=== PATIENT | male | born 1965 | race African-American/Black ===

== ENCOUNTER 2024-02-09 12:41 | Emergency (ER) | payer OTHER, SELFPAY ==
--- NOTE | ~2024-02-09 | CT_ITS ---
CT HEAD WITHOUT IV CONTRAST CLINICAL INFORMATION: head injury, pain COMPARISON: No prior CT scan available for comparison. TECHNIQUE: Department standard protocol. This CT examination was performed using dose optimization techniques as appropriate, variously including the following: *Automated exposure control *Adjustment of mA and/or kV according to patient size (this includes techniques or standardized protocols for targeted exams where dose is matched to indication/reason for exam; i.e. extremities or head) *Use of iterative reconstruction technique DLP: 777 mGy-cm FINDINGS: CEREBRAL HEMISPHERES: There is no evidence of intra-axial or extra-axial mass or acute infarct. BRAIN PARENCHYMA: There is moderate size left frontoparietal subdural hematoma. Measure about 1 cm thick and a span along 8 cm anterior posteriorly and 8 cm craniocaudally. SUBDURAL SPACE: No bleed. BASAL GANGLIA AND PINEAL GLAND: Unremarkable VENTRICLES: Symmetric and normal in size. CEREBELLUM AND BRAINSTEM: No space-occupying mass, hemorrhage or acute infarct. CEREBELLOPONTINE ANGLES: No lesion found. ORBITS: No intraorbital mass. VESSELS: Unremarkable SKULL BASE: Unremarkable INCLUDED SINUSES AT SKULL BASE: Clear SKULL AND SKIN: No fracture or bone lesion found. CT/CT head/brain wo IV con IMPRESSION: Moderate size left intracranial frontoparietal SUBDURAL HEMATOMA. Measure about 1 cm thick and a span along 8 cm anterior posteriorly and 8 cm craniocaudally. (Referring physician staff is being called, by physician staff assistance, to be alerted of the above critical findings and recommendations.) Behzad Calle 02/09/2024 1:32 PM LEAD ENGINEER Electronically signed by: Agapito James MD 02/09/2024 02:33 PM [facility]
--- NOTE | ~2024-02-09 | CT_ITS ---
EXAMINATION: CT CERVICAL SPINE CLINICAL INFORMATION: head injury, pain COMPARISON: No prior CT available, TECHNIQUE: Computed axial sagittal and coronal images acquired using department's standard protocol. This CT examination was performed using dose optimization techniques as appropriate, variously including the following: *Automated exposure control *Adjustment of mA and/or kV according to patient size (this includes techniques or standardized protocols for targeted exams where dose is matched to indication/reason for exam; i.e. extremities or head) *Use of iterative reconstruction technique CONTRAST: None DLP: 1364 mGy-cm FINDINGS: SKULL BASE: Visualized structures at skull base are normal, Included facial sinuses are clear, CERVICAL VERTEBRAE: Seven cervical vertebrae identified maintaining proper height and alignment, ATLANTOAXIAL AND ATLANTOOCCIPITAL ARTICULATION: Asymmetric space around the odontoid process in correlation with the lateral mass of C1, most likely due to rotation of the head POSTERIOR SPINES and lateral transverse processes: All are intact. DISCS: Narrowing of intervertebral disc spaces and developed small osteophyte from the edges of endplates encroaching on the neural foramen bilaterally at multiple levels. PREVERTEBRAL SOFT TISSUE: Within normal limits, no evidence of prevertebral soft tissue swelling. Visualized portion of the trachea larynx are normal. LUNG APICES: Included lung apices are clear bilaterally. Paravertebral soft tissue including LYMPH NODE AND SALIVARY GLANDS THYROID: Paravertebral soft tissue including cervical lymph nodes are within normal limits. Included paranasal and salivary unremarkable. CT/CT cervical spine wo IV con IMPRESSION: 1. No CT evidence of cervical spine fracture. 2. Narrowing of intervertebral disc spaces and developed small osteophyte from the edges of endplates encroaching on the neural foramen bilaterally at multiple levels. 3. Asymmetric space around the odontoid process in correlation with the lateral mass of C1, most likely due to rotation of the head. If patient symptoms persist may consider correlation with follow-up MRI or repeat scan with head properly positioned forward aligned with the remaining of the cervical spine. Electronically signed by: Agapito James MD 02/09/2024 02:42 PM [facility]
[2024-02-09 12:56] VITALS: BP 115/67; PULSE 91; RESP 18; TEMP 36.6; O2SAT 100; BMI 24.2
[2024-02-09 13:02] VITALS: BP 115/67; PULSE 91; RESP 18; TEMP 36.6; O2SAT 100
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
[2024-02-09 16:49] VITALS: BP 103/65; PULSE 72; RESP 16; TEMP 36.8; O2SAT 98
--- NOTE | 2024-02-09 16:52 | PC.NURSE ---
Unable to obtain blood labs as Pt is a difficulty stick. Multiple attempts made to retrieve blood specs with no success. Dr. Garcia aware and advised to hold pending consult with [facility].
--- NOTE | 2024-02-09 16:58 | PC.NURSE ---
Per Dr. Garcia, likely transport to [facility] [place] [place]. Will request U/S guided IV for access and blood labs.
--- NOTE | 2024-02-09 17:07 | PC.NURSE ---
Per Dr. Garcia, Pt will be transported [place] [facility] [place]intervention. Orders given to this RN an forest fire warden Steven to hold on blood work and IV access at this time--orders read back for accuracy. Pt will be transported by BLS Awaiting room assignment at this time; will call for RN report once destination has been provided.
--- NOTE | 2024-02-09 18:14 | PC.NURSE ---
Call placed to [facility] @ [phone] for transfer report. Spoke with OZZIE Avalos; RN to RN report completed. [facility] given opportunity for questions and all questions answered to satisfaction. [facility] arrives to transport Pt. Report given to [facility] staff and all questions answered to satisfaction. Care of Pt relinquished to [facility] staff. Pt has left the ED.
[2024-02-09 18:18] VITALS: BP 103/65; PULSE 72; RESP 16; TEMP 36.8; O2SAT 98
--- OUTSIDE RECORDS SUMMARY | 2024-02-12 12:07 | XMS_ITS | Continuity of Care Document ---
Author Organization [facility] Address [address] [facility] [address] [place] [address] Phone Care Team Providers Care Digital Measurement Advisor Name Role Phone Roderick Blake MD Unavailable [...] Copied on Encounter [facility], [address], [place], [id number], [phone] [facility] No Information 4 Hayden Vaughn. [address] [facility], [address], [place], [place], [id number] , [place]. tel: [phone] [facility], [address] [place], [place] [address], [place], [place], [id number], [place] tel:[phone] [facility] Compression of VeinStricture of ArteryEnd stage renal diseaseOther complications due to renal dialysis device, implant, and graftTo Be Coded 4 Hayden Vaughn. [address] [facility], [address], [place], [place], [id number] , . tel:[phone] Referring Provider: Michelle Augustin, [address] [facility], [facility] [place], [address]. tel:[phone] [facility], [address] [facility] [address], [place], [place], [id number], [place] tel:[phone] [facility] No Information 4 Hayden Vaughn. [address] [facility], [facility] [address], [place], [place], [id number] , [place]. tel:[phone] Family History Family Member Type Diagnosis Age At Onset No Information Payers Payer name Insurance type Covered democrat ID Authoriza tion(s) No Information Social History [...]
--- OUTSIDE RECORDS SUMMARY | 2024-02-12 12:10 | XMS_ITS | Continuity of Care Document ---
Author Organization [facility] Address [address] [facility] [address] [place] [address] Phone Care Team Providers Care Automobile Damage Appraiser Name Role Phone Roderick Blake MD Unavailable [...] Provider Providers Copied on Encounter [facility], [address] [facility] [address], [place], [id number], [phone] [facility] No Information 4 Hayden Vaughn. [address] [facility], [address], [place], [place], [id number] , [place]. tel: [phone] [facility], [address] [place], [place] [address], [place], [place], [id number], [place] tel:[phone] [facility] Compression of VeinStricture of ArteryEnd stage renal diseaseOther complications due to renal dialysis device, implant, and graftTo Be Coded 4 Hayden Vaughn. [address] [facility], [address], [place], [place], [id number] , . tel:[phone] Referring Provider: Michelle Augustin, [address] [facility], [facility] [place], [address]. tel:[phone] [facility], [address] [facility] [address], [place], [place], [id number], [place] tel:[phone] [facility] No Information 4 Hayden Vaughn. [address] [facility], [facility] [address], [place], [place], [id number] , [place]. tel:[phone] Family History Family Member Type Diagnosis Age At Onset No Information Payers Payer name Insurance type Covered green party ID Authoriza tion(s) No Information Social History [...]
== END 2024-02-09 18:19 | disposition short-term general hospital (02) ==
PROVIDERS: Emergency Provider Emergency Medicine
DX: S06.5XAA Traumatic subdural hemorrhage with loss of consciousness status unknown, initial encounter (principal); R41.82 Altered mental status, unspecified; M54.2 Cervicalgia; R51.9 Headache, unspecified; F10.229 Alcohol dependence with intoxication, unspecified; Y90.8 Blood alcohol level of 240 mg/100 ml or more; R27.0 Ataxia, unspecified; X58.XXXA Exposure to other specified factors, initial encounter; Y93.9 Activity, unspecified; Y92.9 Unspecified place or not applicable; Y99.8 Other external cause status
CPT/HCPCS: 70450; 72125; 99285

== ENCOUNTER 2024-03-11 20:30 | Emergency (ER) | payer OTHER, SELFPAY ==
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
[2024-03-11 20:52] VITALS: BP 127/74; BP 133/86; PULSE 80; PULSE 83; RESP 20; TEMP 36.6; O2SAT 93; O2SAT 98; BMI 24.3
[2024-03-11 21:09] LABS: Basophils Percent Auto 0.4 % (0-2); Eosinophils Percent Auto 0.4 % (0-4); Hematocrit 34.2 % (42.0-52.0); Hemoglobin 11.7 g/dl (14.0-18.0); Lymphocytes Absolute Auto 3.2 X10*3/uL (1.2-4.9); Lymphocytes Percent Auto 60.8 % (20-40); MANUAL DIFF FLAG SCAN; Mean Corpuscular HGB Conc 34.2 g/dl (31.0-36.0); Mean Corpuscular Hemoglobin 30.3 pg (27.0-33.0); Mean Corpuscular Volume 88.6 fL (80.0-98.0); Mean Platelet Volume 10.4 fL (9.4-12.4); Monocytes Absolute Auto 0.8 X10*3/uL (0.1-1.2); Monocytes Percent Auto 15.6 % (2-11); Neutrophils Absolute Auto 1.2 x10*3/uL (2.0-8.3); Neutrophils Percent Auto 22.8 % (45-73); Platelet Count 151 X10*3/uL (160-400); Red Blood Count 3.86 X10*6/uL (4.60-5.80); Red Cell Distribution Width 13.8 % (11.0-16.0); SCAN SMEAR FLAG 1; White Blood Count 5.3 X10*3/uL (4.8-10.8)
[2024-03-11 21:35] LABS: SLIDE REVIEW VERIFIED
[2024-03-11 22:01] LABS: Alanine Aminotransferase 49 U/L (0-40); Albumin Level 3.4 g/dL (3.5-5.0); Alkaline Phosphatase 50 U/L (39-117); Anion Gap 15 (12-20); Aspartate Amino Transferase 74 U/L (5-37); Bilirubin Total 0.3 mg/dL (0.0-1.0); Blood Urea Nitrogen 9 mg/dL (9-16); Calcium 8.2 mg/dL (8.4-10.2); Carbon Dioxide 26 mmol/L (22-29); Chloride 111 mmol/L (96-108); Creatinine Clr Calc Pharmacy 88.5; Estimated Glomerular Filt Rate > 60; Glucose Random 114 mg/dL (60-115); Potassium 3.4 mmol/L (3.3-5.1); Sodium 149 mmol/L (135-145); Total Protein 6.7 g/dL (6.5-8.0)
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
[2024-03-12 00:21] LABS: Ethanol 371 mg/dL; Lipase 11 U/L (8-78); Magnesium 1.6 mg/dL (1.6-2.6)
[2024-03-12 00:40] LABS: INTERNATIONAL NORM RATIO 0.9 (0.9-1.1); Prothrombin Time 10.8 SEC (10.9-12.4)
[2024-03-12 01:34] VITALS: BP 111/68; PULSE 70; RESP 14; TEMP 37; O2SAT 96
[2024-03-12 04:27] VITALS: BP 128/72; PULSE 69; RESP 14; TEMP 37.1; O2SAT 96
== END 2024-03-12 04:33 | disposition short-term general hospital (02) ==
PROVIDERS: Nurse Practitioner Family; Emergency Provider Emergency Medicine
DX: S06.5XAA Traumatic subdural hemorrhage with loss of consciousness status unknown, initial encounter (principal); M54.2 Cervicalgia; R10.2 Pelvic and perineal pain; R51.9 Headache, unspecified; R07.89 Other chest pain; Y04.2XXA Assault by strike against or bumped into by another person, initial encounter; Y93.89 Activity, other specified; Y92.89 Other specified places as the place of occurrence of the external cause; Y99.8 Other external cause status; Z51.81 Encounter for therapeutic drug level monitoring; Z79.899 Other long term (current) drug therapy
CPT/HCPCS: 36415; 70450; 71250; 72125; 74176; 80053; 80307; 83690; 83735; 84484; 85025; 85610; 93005; 99285

== ENCOUNTER → 2024-03-11 23:54 | Outpatient (BNV) | payer OTHER, SELFPAY | PROVIDERS: Emergency Provider Emergency Medicine; Visit Provider Internal Medicine | DX: R07.9 Chest pain, unspecified (principal); R94.31 Abnormal electrocardiogram [ECG] [EKG] | CPT/HCPCS: 93010 ==

== ENCOUNTER → 2024-03-12 | Outpatient (BNV) | payer OTHER, SELFPAY | PROVIDERS: Emergency Provider Emergency Medicine; Visit Provider Radiology Diagnostic Radiology | DX: N13.39 Other hydronephrosis (principal); J98.11 Atelectasis; S19.9XXA Unspecified injury of neck, initial encounter; S06.30AA Unspecified focal traumatic brain injury with loss of consciousness status unknown, initial encounter | CPT/HCPCS: 70450; 71250; 72125; 74176 ==

== ENCOUNTER 2024-05-09 08:42 | Inpatient (IN) | payer OTHER, SELFPAY ==
[2024-05-09] VITALS (10 sets, daily range): BP systolic 143–181; BP diastolic 58–105; PULSE 69–155; RESP 16–24; TEMP 36.8–37.3; O2SAT 94–99; BMI 22.4; BMI 23.2
--- NOTE | ~2024-05-09 | CT_ITS ---
CLINICAL HISTORY: ams, seizure CT head without contrast Comparison: CT/SR - CT HEAD/BRAIN WO IV CON - 03/12/24 00:01 EST Findings: No intra-axial mass, midline shift, hydrocephalus, or acute hemorrhage. Small volume subdural hygroma within the right frontal region. Small mixed attenuation left-sided subdural hemorrhage, decreasing from prior. No significant atrophy-like change or white matter disease. There is no sinus or mastoid fluid. The orbits are within normal limits. No skull fracture. IMPRESSION: Small mixed attenuation left-sided subdural hematoma, decreased from prior. Small right-sided subdural hygroma, similar to prior. No new or increasing hemorrhage. This document has been electronically signed by: Douglas Cazares MD on 05/09/2024 09:17:55
--- NOTE | ~2024-05-09 | US_ITS ---
CLINICAL HISTORY: RUQ elevated bili ams US abdomen limited Comparison: CT/SR - CT ABDOMEN PELVIS WO IV CON - 03/12/24 00:05 EST Findings: The visualized pancreas is normal. The aorta and inferior vena cava are normal caliber. The liver is mildly enlarged at 17 cm and increased in echotexture. There is no intrahepatic bile duct dilatation. The common duct is 6 mm in diameter. The gallbladder demonstrates gallstones There is no sonographic Wood sign. The main portal vein is antegrade. The right kidney is 12.9 cm in length. No ascites. IMPRESSION: Hepatic steatosis. Cholelithiasis without evidence of cholecystitis. This document has been electronically signed by: Douglas Cazares MD on 05/09/2024 11:02:31
--- NOTE | 2024-05-09 08:48 | ED_ITS ---
HPI - General Adult General Chief complaint: Altered Mental Status Stated complaint: SEIZURE,WITHDRAWAL FROM ETOH Time Seen by Provider: 05/09/24 08:44 Source: patient and family Mode of arrival: ambulatory Limitations: altered mental status History of Present Illness ED Provider: ANA Bolton HPI narrative: 58-year-old male history of IVDA, alcohol dependence, subdural hematoma presenting from home with 7 minute long seizure and AMS. Patient unable to provide me a story but per EMS patient had a witnessed seizure tonic clonic that lasted 7 minutes. Last drink reported by family was last night around noon. Patient drinks daily. No reported trauma. Limited ROS and history due to paitients mental status. Related Data Allergies Allergy/AdvReac Type Severity Reaction Status Date / Time Unable to Assess Allergy Verified 05/09/24 09:12 Review of Systems 2 Review of Systems: Yes all other systems are reviewed and are negative [facility] Past Medical History Attestation statement: The following information was validated with the patient. Source: old records reviewed and nursing notes reviewed Social History Social History Unable to assess alcohol history related to: Unknown Alcohol intake: current Alcohol intake frequency: 3 or more drinks per day Alcohol type: hard liquor Smoked in Last 30 Days: Yes Use of substances other than those prescribed or required for medical reasons: Yes Physical Exam ED Vital Signs: Vital Signs - 24 hr 05/09/24 09:10 05/09/24 09:21 05/09/24 10:00 Temperature 98.6 F 98.7 F Pulse Rate 155 H 86 79 Respiratory Rate 18 18 18 Blood Pressure 161/105 H 143/86 H 147/86 H Pulse Oximetry 97 98 96 Oxygen Delivery Method Room Air Room Air Room Air BMI result Body Mass Index 22.4 Vital signs stable Appearance: Alert.? Oriented X1 to person.? No acute distress.? Head: Normocephalic, atraumatic, no step-offs or deformities Eyes: Pupils equal, round and reactive to light.? Neck: Normal inspection.? Neck supple.? CVS: Normal heart rate and rhythm.? Pulses normal.? Respiratory: No respiratory distress.? Breath sounds normal.? Abdomen: Soft and nontender.? Skin: Skin warm and dry.? Normal skin color.? Normal skin turgor.? Extremities: No lower extremity edema.? No calf ttp. 5/5 strength to bilateral upper and lower extremities Neuro: Oriented X 1 to person.? No motor deficit.? No sensory deficit. CN 2-12 intact Course Reevaluation(s) Reevaluation #1: Patient's chemistry resulted and showed a potassium of 3.1, will give IV potassium at this time as patient is altered will avoid p.o.. Patient's lactic acid 6.9 this is likely a type B lactic acidosis secondary to seizure unlikely from infection. Magnesium 1.1 IV Mag also ordered. Total bilirubin elevated at 1.5, this is deviating from his baseline, will order a right upper quadrant ultrasound. His transaminases are elevated in the 2-1 fashion likely secondary to chronic alcohol abuse. CPK also elevated 568 likely secondary to seizure. Patient's heart rate improved after Ativan and fluids. Troponins negative EKGs nonischemic however showing sinus tach. CBC pendin will call lab to inquire on status Time: 09:35 Reevaluation #2: CT head with mixed attenuation left-sided subdural hematoma decreased from prior steady. Small right-sided subdural hygroma similar to prior. No increasing or new hemorrhage. Time: 10:03 Reevaluation #3: CBC w/ no acute findings. Baseline anemia noted. Plan hospital admission for alcohol withdrawal seizures. Time: 10:19 Medications Administered Generic Name Dose Route Start Last Admin Trade Name Freq PRN Reason Stop Dose Admin Magnesium Sulfate 2 gm in 50 mls @ 25 mls/hr 05/09/24 09:50 05/09/24 09:56 Magnesium Sulfate/H2o IV 05/09/24 11:49 25 mls/hr ONCE ONE Administration Discontinued Medications Generic Name Dose Route Start Last Admin Trade Name Freq PRN Reason Stop Dose Admin Sodium Chloride 1,000 mls @ 999 mls/hr 05/09/24 08:45 05/09/24 09:09 Ns IV 05/09/24 09:45 999 mls/hr .Q1H1M ELLYN Administration Lorazepam 1 mg 05/09/24 08:44 05/09/24 09:07 Lorazepam 2 Mg/Ml Vial IVPUSH 05/09/24 08:45 1 mg STAT STA Administration Phenobarbital Sodium 450 mg 05/09/24 10:00 05/09/24 09:50 Phenobarbital Sodium 130 Mg/Ml Im Once IM 05/09/24 10:01 450 mg ONCE ONE Administration Protocol Medical Decision Making Medical Decision Making [facility] Narrative: 58-year-old male presents with altered mental status and reported seizure prior to arrival. History of alcohol withdrawal seizures reports he thinks he last drank yesterday. Per EMS patient had a 7 minute witnessed seizure by family, family reports patient's last drink was yesterday at noon. Patient is only oriented to person. Limited history and review of systems due to this. Physical exam patient only oriented to person. Intermittently following commands. He appears confused. Regular rate and rhythm. Lungs clear. Abdomen soft nontender nondistended. No overt signs of trauma. History and physical exam concerning for alcohol withdrawal seizures versus intracranial hemorrhage versus spontaneous head bleed versus metabolic encephalopathy. Will rule out metabolic derangements. Plan IV Ativan 2 mg IV now, head CT, basic labs, ethanol level, IV fluids and seizure precautions. Differential Diagnosis Differential Diagnoses: The differential diagnosis associated with the presentation includes (History and physical exam concerning for alcohol withdrawal seizures versus intracranial hemorrhage versus spontaneous head bleed versus metabolic encephalopathy. Will rule out metabolic derangements.) Admission/Observation Consideration of admission/observation: Escalation of care including admission/observation considered Lab Data [facility] Lab Attestation statement: I reviewed the patient's lab results. 05/09/24 09:05 05/09/24 09:24 Labs: Lab Results 05/09/24 05/09/24 05/09/24 Range/Units 09:04 09:05 09:06 WBC 6.4 (4.8-10.8) X10*3/uL RBC 3.79 L (4.60-5.80) X10*6/uL Hgb 11.7 L (14.0-18.0) g/dl Hct 34.2 L (42.0-52.0) % MCV 90.2 (80.0-98.0) fL MCH 30.9 (27.0-33.0) pg MCHC 34.2 (31.0-36.0) g/dl RDW 14.3 (11.0-16.0) % Plt Count 107 L D (160-400) X10*3/uL MPV 10.4 (9.4-12.4) fL Immature Gran % (Auto) 0.2 (0.0-0.4) % Neut % (Auto) 56.3 (45-73) % Lymph % (Auto) 28.8 (20-40) % [place] % (Auto) 14.0 H (2-11) % Eos % (Auto) 0.2 (0-4) % Baso % (Auto) 0.5 (0-2) % Lymph # (Auto) 1.8 (1.2-4.9) X10*3/uL [place] # (Auto) 0.9 (0.1-1.2) X10*3/uL Eos # (Auto) 0.0 (0.0-0.4) X10*3/uL Baso # (Auto) 0.0 (0.0-0.2) X10*3/uL Abs Immat Gran (auto) 0.01 (0.00-0.03) X10*3/uL Absolute Neuts (auto) 3.6 (2.0-8.3) x10*3/uL Absolute Nucleated RBC 0.000 (0.0-0.012) X10*3/uL Nucleated RBC % (auto) 0.0 (0.0-0.2) /100WBC Hold Purple Top SEE NOTE Hold Blue Top SEE NOTE Sodium (135-145) mmol/L Potassium (3.3-5.1) mmol/L Chloride (96-108) mmol/L Carbon Dioxide (22-29) mmol/L Anion Gap (12-20) BUN (9-16) mg/dL Creatinine (0.5-1.4) mg/dL Estim Creat Clear Calc Estimated GFR Random Glucose (60-115) mg/dL Lactic Acid (0.5-2.0) mmol/L Calcium (8.4-10.2) mg/dL Magnesium (1.6-2.6) mg/dL Total Bilirubin (0.0-1.0) mg/dL AST (5-37) U/L ALT (0-40) U/L Alkaline Phosphatase (39-117) U/L Total Creatine Kinase 568 H (38-174) U/L Troponin I High Sens 3.7 (<3.5-35.0) ng/L Total Protein (6.5-8.0) g/dL Albumin (3.5-5.0) g/dL Ethyl Alcohol mg/dL 05/09/24 Range/Units 09:24 WBC (4.8-10.8) X10*3/uL RBC (4.60-5.80) X10*6/uL Hgb (14.0-18.0) g/dl Hct (42.0-52.0) % MCV (80.0-98.0) fL MCH (27.0-33.0) pg MCHC (31.0-36.0) g/dl RDW (11.0-16.0) % Plt Count (160-400) X10*3/uL MPV (9.4-12.4) fL Immature Gran % (Auto) (0.0-0.4) % Neut % (Auto) (45-73) % Lymph % (Auto) (20-40) % [place] % (Auto) (2-11) % Eos % (Auto) (0-4) % Baso % (Auto) (0-2) % Lymph # (Auto) (1.2-4.9) X10*3/uL [place] # (Auto) (0.1-1.2) X10*3/uL Eos # (Auto) (0.0-0.4) X10*3/uL Baso # (Auto) (0.0-0.2) X10*3/uL Abs Immat Gran (auto) (0.00-0.03) X10*3/uL Absolute Neuts (auto) (2.0-8.3) x10*3/uL Absolute Nucleated RBC (0.0-0.012) X10*3/uL Nucleated RBC % (auto) (0.0-0.2) /100WBC Hold Purple Top Hold Blue Top Sodium 140 (135-145) mmol/L Potassium 3.1 L (3.3-5.1) mmol/L Chloride 101 (96-108) mmol/L Carbon Dioxide 23 (22-29) mmol/L Anion Gap 19 (12-20) BUN 15 (9-16) mg/dL Creatinine 0.95 (0.5-1.4) mg/dL Estim Creat Clear Calc 88.5 Estimated GFR > 60 Random Glucose 152 H (60-115) mg/dL Lactic Acid 6.9 H* (0.5-2.0) mmol/L Calcium 8.5 (8.4-10.2) mg/dL Magnesium 1.1 L* (1.6-2.6) mg/dL Total Bilirubin 1.5 H (0.0-1.0) mg/dL AST 259 H (5-37) U/L ALT 168 H (0-40) U/L Alkaline Phosphatase 51 (39-117) U/L Total Creatine Kinase (38-174) U/L Troponin I High Sens (<3.5-35.0) ng/L Total Protein 7.2 (6.5-8.0) g/dL Albumin 3.7 (3.5-5.0) g/dL Ethyl Alcohol < 10 mg/dL Independent Interpretation I performed an independent interpretation of an: EKG and CT Scan Radiology Impression Discussion of test interpretation with radiology: I have reviewed the radiologist's reading. External Record Review External record reviewed: Inpatient record, Office record, Outpatient record, Prior outpatient labs, Prior outpatient radiology, Primary care record and Outside ED record Critical Care Time Critical Care Time Critical Care Time: Yes Total Critical Care Time: 45 Attestation: I attest to this time spent taking care of the patient, obtaining history, physical, reviewing labs, imaging, treatment of patients condition +/- specialist/hospitalist consult Discharge Plan Discharge Clinical Impression: Alcohol withdrawal seizure, Hygroma, Chronic subdural hematoma Patient Disposition: Still a Patient Print Language: Macanese
--- NOTE | 2024-05-09 08:51 | ECG_ITS ---
Test Reason : SEIZURE Blood Pressure : */* mmHG Vent. Rate : 149 BPM Atrial Rate : 149 BPM P-R Int : 122 ms QRS Dur : 78 ms QT Int : 280 ms P-R-T Axes : 75 -46 90 degrees QTcB Int : 441 ms Sinus tachycardia Left anterior fascicular block ST depression, consider subendocardial injury Nonspecific T wave abnormality Abnormal ECG When compared with ECG of 12-Mar-2024 00:22, Significant changes have occurred Referred By: Gwen Bolton Electronically Signed By: EZEQUIEL MONGE MD
[2024-05-09] MEDS: LORazepam 2 MG/ML VIAL 1 MG IVPUSH (09:07)
[2024-05-09] MEDS: 0.9 % Sodium Chloride 1,000 ML 999 ML IV (09:09)
[2024-05-09 09:13] LABS: MANUAL DIFF FLAG NO
[2024-05-09 09:25] LABS: Basophils Percent Auto 0.5 % (0-2); Eosinophils Percent Auto 0.2 % (0-4); Hematocrit 34.2 % (42.0-52.0); Hemoglobin 11.7 g/dl (14.0-18.0); Imm Gran Abs Auto 0.01 X10*3/uL (0.00-0.03); Imm Gran Pct Auto 0.2 % (0.0-0.4); Lymphocytes Absolute Auto 1.8 X10*3/uL (1.2-4.9); Lymphocytes Percent Auto 28.8 % (20-40); Mean Corpuscular HGB Conc 34.2 g/dl (31.0-36.0); Mean Corpuscular Hemoglobin 30.9 pg (27.0-33.0); Mean Corpuscular Volume 90.2 fL (80.0-98.0); Mean Platelet Volume 10.4 fL (9.4-12.4); Monocytes Absolute Auto 0.9 X10*3/uL (0.1-1.2); Neutrophils Absolute Auto 3.6 x10*3/uL (2.0-8.3); Neutrophils Percent Auto 56.3 % (45-73); Platelet Count 107 X10*3/uL (160-400); Red Blood Count 3.79 X10*6/uL (4.60-5.80); Red Cell Distribution Width 14.3 % (11.0-16.0); White Blood Count 6.4 X10*3/uL (4.8-10.8)
[2024-05-09 09:38] LABS: Troponin-I High Sensitivity 3.7 ng/L (<3.5-35.0)
[2024-05-09] MEDS: PHENobarbitaL sodium 130 MG/ML IM ONCE 450 MG IM (09:50)
[2024-05-09 09:51] LABS: Alanine Aminotransferase 168 U/L (0-40); Albumin Level 3.7 g/dL (3.5-5.0); Alkaline Phosphatase 51 U/L (39-117); Anion Gap 19 (12-20); Aspartate Amino Transferase 259 U/L (5-37); Bilirubin Total 1.5 mg/dL (0.0-1.0); Blood Urea Nitrogen 15 mg/dL (9-16); Calcium 8.5 mg/dL (8.4-10.2); Carbon Dioxide 23 mmol/L (22-29); Chloride 101 mmol/L (96-108); Creatinine Clr Calc Pharmacy 88.5; Estimated Glomerular Filt Rate > 60; Ethanol < 10 mg/dL; Glucose Random 152 mg/dL (60-115); Lactic Acid 6.9 mmol/L (0.5-2.0); Magnesium 1.1 mg/dL (1.6-2.6); Potassium 3.1 mmol/L (3.3-5.1); Sodium 140 mmol/L (135-145); Total Protein 7.2 g/dL (6.5-8.0)
[2024-05-09] MEDS: Magnesium Sulfate/H2O 2 GM/50 ML PIGGYBACK IV ×2 (09:56→12:17)
--- NOTE | 2024-05-09 09:59 | PC.NURSE ---
Arrived via from home after his partner witnessed a 7-8 minute tonic clonic seizure. Patient with hx of etoh withdrawl seizure per ems last drink was yesterday at noon. patient alert to self and able to answer simple yes or no question. sent to ct upon arrival. 20g in placed in left and right hands. Initially tachy in 150`s ativan given with improvement in HR. Patient denies pain, denies etoh use today. Changed into hospital attire
--- NOTE | 2024-05-09 10:06 | ECG_ITS ---
Test Reason : ALCOHOL WITHDRAWAL Blood Pressure : */* mmHG Vent. Rate : 70 BPM Atrial Rate : 70 BPM P-R Int : 140 ms QRS Dur : 88 ms QT Int : 424 ms P-R-T Axes : 57 -12 38 degrees QTcB Int : 457 ms Normal sinus rhythm Minimal voltage criteria for LVH, may be normal variant ( Sokolow-Rae ) Septal infarct , age undetermined Abnormal ECG When compared with ECG of 09-May-2024 08:57, Vent. rate has decreased by 79 bpm QRS axis Shifted right ST no longer depressed in Inferior leads ST elevation has replaced ST depression in Anterior leads T wave inversion no longer evident in Lateral leads Referred By: Gwen Bolton Electronically Signed By: EZEQUIEL MONGE MD
[2024-05-09] MEDS: Potassium Chloride/H20 10 MEQ/100 ML PIGGYBACK 100 MEQ IV ×2 (10:23→11:21)
--- OUTSIDE RECORDS SUMMARY | 2024-05-09 10:26 | XMS_ITS | Clinical Summary ---
Author Organization [facility] it Address [address] [place] [address] Care Team Providers Care Decorative Engraver Name Role Phone Unavailable Primary Care Provider Unavailabl e Social History Tobacco Use Types Packs/Day Years Used Date Smoking Tobacco: Never Assessed Sex and Gender Information Value Date Recorded Sex Assigned at Not on file Legal Sex Male 12:11 PM EST Gender Identity Not on file Sexual Orientation Not on file Plan of Treatment Health Maintenance Due Date Last Done Comments DTaP,Tdap,and Td Vaccines (1 - Tdap) 11/08/1983 Hepatitis A Vaccines (1 of 2 - Risk 2-dose series) 11/08/1983 Hepatitis B Vaccines (1 of 3 - 19+ 3-dose series) 11/08/1983 Pneumococcal Vaccine: 50+ Ye ars (1 of 1 - PCV) 2014 Zoster Vaccines (1 of 2) 2014 Cholesterol Screening (Lipid Panel) 01/30/2022 Colorectal Cancer Screening: Colonoscopy 01/30/2022 Depression Screening 01/30/2022 HIV Screening 01/30/2022 Hepatitis C Screening 01/30/2022 Social Influencers of Health Screening 01/30/2022 COVID-19 Vaccine ( - 2023-2 5 season) 2023 Influenza Vaccine (#1) 2023 RSV Immunization Patients 60 + Years Old (1 - 1-dose 75+ series) 11/08/2039 HIB Vaccines Aged Out No longer eligi ble based on patient's age to complete this topic HPV Vaccines Aged Out No longer eligi ble based on patient's age to complete this topic IPV Vaccines Aged Out No longer eligi ble based on patient's age to complete this topic MMR Vaccines Aged Out No longer eligi ble based on patient's age to complete this topic Meningococcal ACWY Vaccine Aged Out N o longer eligible based on patient's age to complete this topic Meningococcal B Vacine Aged Out No lo nger eligible based on patient's age to complete this topic Pneumococcal Vaccine: Pediat rics (0 to 5 Years) and At-Risk Patients (6 to 64 Years) Aged Out No longer eligible b ased on patient's age to complete this topic RSV Immunization Patients Un prashanth 20 months Aged Out No longer eligible b ased on patient's age to complete this topic Varicella Vaccines Aged Out No longer eligible based on patient's age to complete this topic
--- NOTE | 2024-05-09 10:55 | PHA.MEDREC ---
Pharmacy Consult ? Medication Reconciliation Pharmacy has completed the medication reconciliation. Pt not on any meds per nursing (Katheryn).
[2024-05-09 10:59] LABS: Appearance Urine Clear; Color Urine Dark Yellow; Glucose Urine UA Negative (Negative); Leukocyte Esterase Urine Trace (Negative); Nitrite Urine Negative (Negative); Specific Gravity - Urine 1.015 (1.005-1.025); UMIC TRIGGER UACC YES; Urine Blood Small (1+) (Negative); Urine Ketones Trace mg/dL (Negative); Urine Protein 100 (2+) mg/dL (Neg-Trace)
[2024-05-09 11:09] LABS: Amphetamine Screen Urine Not Detected (Not Detect); Barbiturates, Urine Not Detected (Not Detect); Benzodiazepines Screen Urine Not Detected (Not Detect); Buprenorphine Scr Not Detected (Not Detect); Cannabinoid Screen Urine Not Detected (Not Detect); Cocaine Screen Urine Not Detected (Not Detect); Fentanyl, urine Not Detected (Not Detect); Methadone Screen, Urine Not Detected (Not Detect); Opiate Screen Urine Not Detected (Not Detect); Oxycodone Screen Urine Not Detected (Not Detect); Phencyclidine Screen Urine Not Detected (Not Detect)
--- NOTE | 2024-05-09 11:14 | P.HPHOSP_ITS ---
History of Present Illness Date of Service: 05/09/24 Attending physician on admission: Joan Nicole Chief Complaint: Alcohol withdrawal seizure Pt is a 58-year-old male with a PMH significant for?subdural hematoma, IVDU, and alcohol dependence with hx of withdrawal who presents to the ED from home after family witnessed a 7 minute long seizure. Family report pt has stopped drinking yesterday around noon. Pt with a long hx of heavy daily drinking mostly vodka, exact amount uncertain. Family report seizure was tonic-clonic and pt was confused afterwards. Upon arrival to the ED pt was initially confused and postictal, unable to follow commands or answer questions. Was loaded with Ativan and phenobarb with eventual improvement to mentation. No seizure while in the ED. during interview and exam pt awake and alert, though oriented only to self. Believes he is at [facility] and the year is 2005. Pt does not remember when his last drink was, or how much he has been drinking lately. Complains of pain in his left hand at IV insertion site where he has been transfused IV potassium. Otherwise pt has no acute medical complaints. In the ED pt was tachycardic up to 155 and hypertensive up to 161/105. Labs were significant for lactic acidosis 6.9, potassium 3.1, magnesium 1.1, T bili 1.5, AST 259, ALT 168, and CPK 568. No leukocytosis. Stable H&H. Renal function WNL. Troponin WNL. UA not consistent with acute UTI, likely contaminated. Ethyl alcohol undetectable. CT?of head negative for acute abnormality, but showed small left-sided subdural hematoma decreased from prior and small right-sided subdural hygroma similar to prior. Abdominal ultrasound found hepatic steatosis and cholelithiasis without evidence of cholecystitis. EKG demonstrated sinus tachycardia of [address] depressions in lateral leads. Repeat EKG showed normal sinus rhythm of 70 without evidence of significant ST elevations or depressions. Pt was treated with Ativan 1 mg IV, IVF, magnesium, potassium chloride, and started on high-dose phenobarb protocol. Pt will be admitted to the hospital for treatment and further evaluation of hypomagnesemia and hypokalemia in the setting of acute alcohol withdrawal with seizure. Review of Systems 2 Review of Systems: Negative except for that which is stated in the HPI. [facility] Social History Unable to assess alcohol history related to: Unknown Alcohol intake: current Alcohol intake frequency: 3 or more drinks per day Alcohol type: hard liquor Smoked in Last 30 Days: Yes Use of substances other than those prescribed or required for medical reasons: Yes Advance Directives: No Advance Directives Information Provided: Yes Meds Allergies Allergy/AdvReac Type Severity Reaction Status Date / Time Unable to Assess Allergy Verified 05/09/24 09:12 Active Medications: Current Medications Magnesium Sulfate (Magnesium Sulfate/H2o) 2 gm in 50 mls @ 25 mls/hr IV ONCE ONE Stop: 05/09/24 11:49 Last Admin: 05/09/24 09:56 Dose: 25 mls/hr Potassium Chloride (Potassium Chloride/H20) 10 meq in 100 mls @ 100 mls/hr IV Q1H ELLYN Stop: 05/09/24 14:14 Last Admin: 05/09/24 10:23 Dose: 100 mls/hr Pharmacy Consult (Consult Rx Etoh Phenob Im/Po) 1 each MISCELLANE ONCE PRN; Protocol PRN Reason: Consult order Phenobarbital (Phenobarbital 15 Mg Tablet) 45 mg PO BID ELLYN; Protocol Stop: 05/11/24 09:01 Phenobarbital (Phenobarbital 30 Mg Tablet) 30 mg PO BID ELLYN; Protocol Stop: 05/13/24 09:01 Phenobarbital (Phenobarbital 30 Mg Tablet) 30 mg PO Q24H ELLYN; Protocol Stop: 05/14/24 21:01 Phenobarbital Sodium (Phenobarbital Sodium 130 Mg/Ml Vial Im Q3hx2) 340 mg IM Q3H ELLYN; Protocol Stop: 05/09/24 16:01 Home Medications ?Medication ?Instructions ?Recorded ?Confirmed ?Last Taken ?Type No Known Home Meds 05/09/24 05/09/24 Unknown History Physical Exam 2 Vital Signs and Narrative: Vital Signs: Last Vital Signs Temp 98.7 F 05/09/24 10:00 Pulse 79 05/09/24 10:00 Resp 18 05/09/24 10:00 BP 147/86 H 05/09/24 10:00 Pulse Ox 96 05/09/24 10:00 O2 Del Method Room Air 05/09/24 10:00 BMI result Body Mass Index 22.4 General: AOx1, no acute distress Resp: CTA bilaterally CVS: S1, S2, RRR GI: +BS, NT, no distention Skin: Warm, dry Neuro: Cranial nerves II-XII grossly intact bilaterally. Motor grossly intact bilaterally. Minor upper extremity tremors noted. Extremities: No edema Psych: Pleasantly confused, following commands Results Labs 05/09/24 09:05 05/09/24 09:24 Labs: Laboratory Results - last 24 hr 05/09/24 05/09/24 05/09/24 09:04 09:05 09:06 MCV 90.2 MCH 30.9 MCHC 34.2 RDW 14.3 Plt Count 107 L D MPV 10.4 Immature Gran % (Auto) 0.2 Neut % (Auto) 56.3 Lymph % (Auto) 28.8 [place] % (Auto) 14.0 H Eos % (Auto) 0.2 Baso % (Auto) 0.5 Lymph # (Auto) 1.8 [place] # (Auto) 0.9 Eos # (Auto) 0.0 Baso # (Auto) 0.0 Abs Immat Gran (auto) 0.01 Absolute Neuts (auto) 3.6 Absolute Nucleated RBC 0.000 Nucleated RBC % (auto) 0.0 Hold Purple Top SEE NOTE Hold Blue Top SEE NOTE Anion Gap Estim Creat Clear Calc Estimated GFR Random Glucose Lactic Acid Calcium Magnesium Total Bilirubin AST ALT Alkaline Phosphatase Total Creatine Kinase 568 H Total Protein Albumin Urine Color Urine Appearance Urine pH Ur Specific [place] Urine Protein Urine Glucose (UA) Urine Ketones Urine Blood Urine Nitrite Ur Leukocyte Esterase Urine Opiates Screen Ur Buprenorphine Scrn Ur Oxycodone Screen Urine Methadone Screen Urine Fentanyl Screen Ur Barbiturates Screen Ur Phencyclidine Scrn Ur Amphetamines Screen U Benzodiazepines Scrn Urine Cocaine Screen U Marijuana (THC) Screen Ethyl Alcohol 05/09/24 05/09/24 09:24 10:46 MCV MCH MCHC RDW Plt Count MPV Immature Gran % (Auto) Neut % (Auto) Lymph % (Auto) [place] % (Auto) Eos % (Auto) Baso % (Auto) Lymph # (Auto) [place] # (Auto) Eos # (Auto) Baso # (Auto) Abs Immat Gran (auto) Absolute Neuts (auto) Absolute Nucleated RBC Nucleated RBC % (auto) Hold Purple Top Hold Blue Top Anion Gap 19 Estim Creat Clear Calc 88.5 Estimated GFR > 60 Random Glucose 152 H Lactic Acid 6.9 H* Calcium 8.5 Magnesium 1.1 L* Total Bilirubin 1.5 H AST 259 H ALT 168 H Alkaline Phosphatase 51 Total Creatine Kinase Total Protein 7.2 Albumin 3.7 Urine Color Dark Yellow Urine Appearance Clear Urine pH 7.0 Ur Specific [place] 1.015 Urine Protein 100 (2+) H Urine Glucose (UA) Negative Urine Ketones Trace Urine Blood Small (1+) H Urine Nitrite Negative Ur Leukocyte Esterase Trace H Urine Opiates Screen Not Detected Ur Buprenorphine Scrn Not Detected Ur Oxycodone Screen Not Detected Urine Methadone Screen Not Detected Urine Fentanyl Screen Not Detected Ur Barbiturates Screen Not Detected Ur Phencyclidine Scrn Not Detected Ur Amphetamines Screen Not Detected U Benzodiazepines Scrn Not Detected Urine Cocaine Screen Not Detected U Marijuana (THC) Screen Not Detected Ethyl Alcohol < 10 Assessment and Plan (1) Alcohol withdrawal seizure: Status: Acute Plan Acute withdrawal with likely withdrawal seizure Family reports pt has stopped drinking yesterday at noon, the 1st time they remember him stopping drinking Has been a heavy drinker many years Family reports witnessed a 7 minute long tonic-clonic seizure Pt postictal upon arrival to ED Pt is started on phenobarb protocol at 15 mg/kg, continue Daily multivitamin, folic acid, thiamine, famotidine Seizure precautions Addiction medicine consult Monitor on telemetry Acute lactic acidosis Lactic acid 6.9 In the setting withdrawal seizure, not sepsis Treat as above Trend lactic acid Hypomagnesemia Magnesium 1.1 at time of presentation Pt given Mag 2 g IV in the ED Will give additional Mag 2 g IV Trend labs Hypokalemia Potassium 3.1 at time of presentation Pt is supplemented with potassium IV in the ED Trend potassium Acute alcoholic hepatitis, mild In the setting alcohol use disorder Trend LFTs Tachycardic Pt initially arrived tachycardic in the 150s EKG with possible SVT Resolved after Ativan phenobarb Monitor on telemetry Subdural hematoma and hygroma Chronic, stable HTN Patient's BP elevated as high as 161/105 in the ED Likely secondary to above Not on home antihypertensives Will monitor for now and treat as necessary Full Code Attending:?Dr. Nicole DVT Prophylaxis: Pneumatic compression due to hx of subdermal hematoma Pt will require a hospitalization of at least two nights for treatment of?hypomagnesemia and hypo kalemia in the setting of acute alcohol withdrawal with seizure. Pt will require hospital level care for administration phenobarb protocol, close monitoring of labs with electrolyte replenishment as necessary, and close cardiac monitoring. Quality Stroke Does the patient have a stroke diagnosis?: No VTE Prior VTE?: No VTE Risk Level:: Medical - moderate - high VTE Device Contraindication: N/A - Device Ordered VTE Drug Contraindication: Treatment Not Indicated
[2024-05-09 11:16] LABS: Bacteria Urine None Seen (None Seen); Hyaline Casts Urine 0-2 /LPF (0-2); RBC Urine 0-2 /HPF (0-2); UACC Culture Trigger YES
--- NOTE | 2024-05-09 11:26 | PC.NURSE ---
Patient reports feeling better, vss, medicated per mar. Patient continues to deny pain or discomfort
[2024-05-09 11:29] LABS: Reflex Lactate? Lactic Acid Added
[2024-05-09] MEDS: Multivitamin TABLET 1 TAB PO (12:12)
[2024-05-09] MEDS: Folic Acid 1 MG TABLET PO (12:12)
[2024-05-09] MEDS: Famotidine 20 MG TABLET PO ×2 (12:12→20:24)
[2024-05-09] MEDS: Potassium Chloride Packet 20 MEQ PACKET 40 MEQ PO (12:12)
[2024-05-09] MEDS: Thiamine HCL 100 MG TABLET PO (12:12)
[2024-05-09] MEDS: PHENobarbitaL sodium 130 MG/ML VIAL IM Q3Hx2 340 MG IM ×2 (12:15→16:13)
[2024-05-09] MEDS: Lactated Ringers 1,000 ML 100 ML IVCONT (12:23)
[2024-05-09 13:38] LABS: ~Lactic Acid-LAB USE ONLY 2.6 mmol/L (0.5-2.0)
[2024-05-09 14:57] LABS: Reflex Lactate? 2 Y
[2024-05-09 16:16] LABS: ~Lactic Acid-LAB USE ONLY 1.5 mmol/L (0.5-2.0)
[2024-05-09] MEDS: PHENobarbitaL 15 MG TABLET 45 MG PO (20:23)
[2024-05-09] MEDS: 0.9 % Sodium Chloride Flush 3 ML SYRINGE IVFLUSH (22:36)
[2024-05-10] VITALS: BP 154/90; PULSE 74; RESP 16; TEMP 36.5; O2SAT 98
[2024-05-10 03:37] VITALS: BP 147/81; PULSE 75; RESP 16; TEMP 36.9; O2SAT 98
--- NOTE | 2024-05-10 07:31 | PC.NURSE ---
HR 140's sinus tach since this am at 6:30 am. KAREN Easton MD aware ,alert and oriented no chest pain no sob
[2024-05-10 08:00] VITALS: BP 128/86; PULSE 141; RESP 18; TEMP 37.3; O2SAT 97
[2024-05-10 08:08] LABS: Alanine Aminotransferase 128 U/L (0-40); Albumin Level 3.6 g/dL (3.5-5.0); Alkaline Phosphatase 46 U/L (39-117); Anion Gap 16 (12-20); Aspartate Amino Transferase 152 U/L (5-37); Bilirubin Total 1.9 mg/dL (0.0-1.0); Blood Urea Nitrogen 11 mg/dL (9-16); Calcium 8.7 mg/dL (8.4-10.2); Carbon Dioxide 24 mmol/L (22-29); Chloride 101 mmol/L (96-108); Creatinine Clr Calc Pharmacy 111.9; Estimated Glomerular Filt Rate > 60; Glucose Random 90 mg/dL (60-115); Magnesium 1.7 mg/dL (1.6-2.6); Potassium 2.9 mmol/L (3.3-5.1); Sodium 138 mmol/L (135-145); Total Protein 7.1 g/dL (6.5-8.0)
[2024-05-10] MEDS: Folic Acid 1 MG TABLET PO (08:14)
[2024-05-10] MEDS: Famotidine 20 MG TABLET PO ×2 (08:14→20:26)
[2024-05-10] MEDS: PHENobarbitaL 15 MG TABLET 45 MG PO ×2 (08:14→20:26)
[2024-05-10] MEDS: Thiamine HCL 100 MG TABLET PO (08:14)
[2024-05-10] MEDS: Multivitamin TABLET 1 TAB PO (08:14)
[2024-05-10] MEDS: 0.9 % Sodium Chloride Flush 3 ML SYRINGE IVFLUSH ×3 (08:15→20:27)
[2024-05-10 11:28] VITALS: BP 129/80; PULSE 89; RESP 18; TEMP 36.8; O2SAT 98
--- NOTE | 2024-05-10 11:48 | MHC.RECOVRN ---
T/W attempted assessment and AUDIT C with [id number], as per referral received. Pt in bed sleeping but did awake to voice. Agreed to meet with this writer editor but answers were short and voice was soft. Pt had visitor arrive during meeting so open conversation was difficult. Pt did report that he had been on suboxone in the past (up until a week ago) and once he took himself off he was having w/d to the point of causing him to drink. Pt wishes to resume suboxone. He reports he was on 8mg in the past. Tox negative for all substances and ETOH <10. Upon review of pt's chart and [facility] it appears that pt's last prescribed suboxone was in 02/2024. It also appears that pt has had a few ER visits over the last several months r/t ETOH use and seizures/Head injuries. In light of all of this information as well as pt's inablitity to openly/accurately communicate during visit I will defer a full assessment/AUDIT C to tomorrow for more accurate information to make a more informed POC. ACS team updated and F/U requested for tomorrow. T/W left pt. with folder of resources for AUD.
--- NOTE | 2024-05-10 14:23 | P.PNIM_ITS ---
Subjective Subjective Date of Service: 05/10/24 Interval History: Being followed for alcohol withdrawal seizure. No recurrent seizures noted, tele monitor showed tachycardia this morning now in sinus rhythm, denies chest pain, no palpitations, tolerating diet, no acute overnight events. Review of Systems All other system reviewed and are negative. Physical Exam 2 Vital Signs: Vital Signs: Last Vital Signs Temp 98.3 F 05/10/24 11:28 Pulse 89 05/10/24 11:28 Resp 18 05/10/24 11:28 BP 129/80 05/10/24 11:28 Pulse Ox 98 05/10/24 11:28 O2 Del Method Room Air 05/10/24 11:28 BMI result Body Mass Index 23.2 Const: Other: General resting comfortably in no acute distress. Neck no JVD. CVS regular rate rhythm, Respiratory lungs clear to auscultation, no respiratory distress, no wheeze, no rhonchi. Gastrointestinal abdomen soft, non tender, bowel sounds audible Extremities no edema. Neuro non focal , speech clear. Skin no rash Appropriate affect Objective Data Active Medications Acetaminophen (Acetaminophen 325 Mg Tablet) 650 mg PO Q6H PRN PRN Reason: Pain, Mild 1-3,fever,headache Calcium Carbonate (Calcium Carbonate 750 Mg Tab.Chew) 750 mg PO Q4H PRN PRN Reason: Heartburn Famotidine (Famotidine 20 Mg Tablet) 20 mg PO BID [facility] Last Admin: 05/10/24 08:14 Dose: 20 mg Documented By: GABRIELA Folic Acid (Folic Acid 1 Mg Tablet) 1 mg PO DAILY [facility] Stop: 05/12/24 11:54 Last Admin: 05/10/24 08:14 Dose: 1 mg Documented By: GABRIELA Magnesium Hydroxide (Milk Of Magnesia 30 Ml Oral.Susp) 30 ml PO DAILY PRN PRN Reason: Constipation Multivitamins/Vitamin C (Multivitamin Tablet) 1 tab PO DAILY [facility] Stop: 05/12/24 11:54 Last Admin: 05/10/24 08:14 Dose: 1 tab Documented By: GABRIELA Ondansetron HCl (Ondansetron Hcl 4 Mg/2 Ml Vial) 4 mg IVPUSH Q8H PRN PRN Reason: Nausea and Vomiting Pharmacy Consult (Consult Rx Etoh Phenob Im/Po) 1 each MISCELLANE ONCE PRN; Protocol PRN Reason: Consult order Phenobarbital (Phenobarbital 15 Mg Tablet) 45 mg PO BID [facility]; Protocol Stop: 05/11/24 09:01 Last Admin: 05/10/24 08:14 Dose: 45 mg Documented By: GABRIELA Phenobarbital (Phenobarbital 30 Mg Tablet) 30 mg PO BID [facility]; Protocol Stop: 05/13/24 09:01 Phenobarbital (Phenobarbital 30 Mg Tablet) 30 mg PO Q24H [facility]; Protocol Stop: 05/14/24 21:01 Sodium Chloride (0.9 % Sodium Chloride Flush 3 Ml Syringe) 3 ml IVFLUSH QSHIFT [facility] Last Admin: 05/10/24 08:15 Dose: 3 ml Documented By: GABRIELA Thiamine HCl (Thiamine Hcl 100 Mg Tablet) 100 mg PO DAILY [facility] Stop: 05/12/24 11:54 Last Admin: 05/10/24 08:14 Dose: 100 mg Documented By: GABRIELA Labs 05/09/24 09:05 05/10/24 06:21 Labs: Laboratory Results - last 24 hr 05/09/24 05/09/24 05/10/24 12:53 15:51 06:21 Anion Gap 16 Estim Creat Clear Calc 111.9 Estimated GFR > 60 Random Glucose 90 Lactic Acid F/U @ 2Hr 2.6 H* Lactic Acid F/U @ 4Hr 1.5 Calcium 8.7 Magnesium 1.7 Total Bilirubin 1.9 H AST 152 H ALT 128 H Alkaline Phosphatase 46 Total Protein 7.1 Albumin 3.6 Microbiology Microbiology Results: Microbiology 05/09/24 09:04 Blood Culture - Preliminary Blood - Venous No growth after 24 hours. 05/09/24 09:04 Blood Culture - Preliminary Blood - Venous No growth after 24 hours. 05/09/24 Unknown Urine Culture - Final Urine clean catch - Clean Catch Midstream No growth. Assessment and Plan (1) Chronic subdural hematoma: Status: Acute (2) Alcohol withdrawal seizure: Status: Acute Plan Acute withdrawal with likely withdrawal seizure Stopped drinking day prior to presentation, history of heavy drinking for many years Family reports witnessed a 7 minute long tonic-clonic seizure, postictal upon arrival to ED Continue phenobarb protocol , multivitamin, folic acid, thiamine, famotidine Seizure precautions Addiction medicine consult Not on any home medications. Acute lactic acidosis Lactic acid 6.9 improved to 1.5 In the setting withdrawal seizure, not sepsis Hypomagnesemia Magnesium 1.1 at time of presentation, improved to 1.7, will place on magnesium oxide Hypokalemia Potassium remains low 2.9 will replace and follow labs Acute alcoholic hepatitis, mild In the setting alcohol use disorder Trend LFTs Tachycardia EKG with possible SVT Resolved after Ativan phenobarb, noted to have sinus tach this morning now resolved Monitor on telemetry Subdural hematoma and hygroma Chronic, stable HTN BP 161/105 on arrival likely due to alcohol withdrawal now improved. Full Code DVT Prophylaxis: Pneumatic compression due to hx of subdermal hematoma Pt will require continued inpatient hospitalization for treatment of electrolyte abnormality alcohol withdrawal on phenobarb and close monitoring for alcohol withdrawal seizures. Quality Stroke Does the patient have a stroke diagnosis?: No VTE Prior VTE?: No VTE Risk Level:: Medical - moderate - high VTE Device Contraindication: N/A - Device Ordered VTE Drug Contraindication: Treatment Not Indicated
[2024-05-10] MEDS: Magnesium Oxide 400 MG TABLET 800 MG PO (15:09)
[2024-05-10] MEDS: Potassium Chloride ER 20 MEQ TAB.ER.PRT 40 MEQ PO ×2 (15:09→20:26)
[2024-05-10 15:34] VITALS: BP 125/71; PULSE 78; RESP 18; TEMP 36.7; O2SAT 97
--- NOTE | 2024-05-10 15:38 | MHC.CM.PN ---
Pt lives with a friend, he does not have a PCP, brochure was given. He does not use DME or have home health services. He takes the bus for transportation and can take it home. DCP: home, self care. CM to follow for DC needs.
[2024-05-10 19:44] VITALS: BP 121/76; PULSE 96; RESP 16; TEMP 37; O2SAT 98
[2024-05-10] MEDS: Acetaminophen 325 MG TABLET 650 MG PO (20:26)
[2024-05-11] VITALS: BP 130/77; PULSE 84; RESP 16; TEMP 37.1; O2SAT 98
[2024-05-11 04:00] VITALS: BP 109/61; PULSE 70; RESP 16; TEMP 36.9; O2SAT 97
[2024-05-11 06:25] LABS: Anion Gap 13 (12-20); Blood Urea Nitrogen 22 mg/dL (9-16); Carbon Dioxide 26 mmol/L (22-29); Chloride 104 mmol/L (96-108); Creatinine Clr Calc Pharmacy 107.7; Estimated Glomerular Filt Rate > 60; Glucose Random 93 mg/dL (60-115); Magnesium 1.8 mg/dL (1.6-2.6); Potassium 3.7 mmol/L (3.3-5.1); Sodium 139 mmol/L (135-145)
[2024-05-11 07:18] VITALS: BP 122/78; PULSE 60; RESP 17; TEMP 36.8; O2SAT 98
[2024-05-11] MEDS: Magnesium Oxide 400 MG TABLET 800 MG PO (09:43)
[2024-05-11] MEDS: PHENobarbitaL 15 MG TABLET 45 MG PO (09:43)
[2024-05-11] MEDS: Multivitamin TABLET 1 TAB PO (09:43)
[2024-05-11] MEDS: Thiamine HCL 100 MG TABLET PO (09:43)
[2024-05-11] MEDS: Famotidine 20 MG TABLET PO ×2 (09:43→21:10)
[2024-05-11] MEDS: Folic Acid 1 MG TABLET PO (09:44)
--- NOTE | 2024-05-11 09:47 | MHC.CM.PN ---
DX ETOH withdrawal with Seizure. Patient lives with a friend. He is independent with all functional mobility. He will be seen by the recovery nurse. DP Home self care with community resource info provided by the recovery team. Patient will transport via bus.
[2024-05-11] MEDS: Buprenorphine/Naloxone 2/0.5mg FILM 1 FILM SUBLINGUAL (10:35)
[2024-05-11 11:32] VITALS: BP 125/71; PULSE 87; RESP 18; TEMP 36.6; O2SAT 97
--- NOTE | 2024-05-11 14:13 | HO.PM.IMPN ---
Subjective Subjective Date of Service: 05/11/24 Interval History: Being followed for alcohol withdrawal seizure. Feeling better no recurrent seizures since admission, tolerating diet no nausea, no vomiting or abdominal pain, no diarrhea, denies anxiety, no acute overnight events. Review of Systems All other system reviewed and are negative Physical Exam Vital Signs: Vital Signs: Last Vital Signs Temp 97.9 F 05/11/24 11:32 Pulse 87 05/11/24 11:32 Resp 18 05/11/24 11:32 BP 125/71 05/11/24 11:32 Pulse Ox 97 05/11/24 11:32 O2 Del Method Room Air 05/11/24 11:32 BMI result Body Mass Index 23.2 Const: Other: General resting comfortably in no acute distress. Neck no JVD. CVS regular rate rhythm, Respiratory lungs clear to auscultation, no respiratory distress, no wheeze, no rhonchi. Gastrointestinal abdomen soft, non tender, bowel sounds audible Extremities no edema. Neuro non focal , speech clear,no tremors. Skin no rash Appropriate affect Objective Data Active Medications Acetaminophen (Acetaminophen 325 Mg Tablet) 650 mg PO Q6H PRN PRN Reason: Pain, Mild 1-3,fever,headache Last Admin: 05/10/24 20:26 Dose: 650 mg Documented By: DULCE Buprenorphine/Naloxone (Buprenorphine/Naloxone 2/0.5mg Film) 1 film SUBLINGUAL DAILY [facility] Last Admin: 05/11/24 10:35 Dose: 1 film Documented By: MARILU Calcium Carbonate (Calcium Carbonate 750 Mg Tab.Chew) 750 mg PO Q4H PRN PRN Reason: Heartburn Famotidine (Famotidine 20 Mg Tablet) 20 mg PO BID [facility] Last Admin: 05/11/24 09:43 Dose: 20 mg Documented By: MARILU Folic Acid (Folic Acid 1 Mg Tablet) 1 mg PO DAILY [facility] Stop: 05/12/24 11:54 Last Admin: 05/11/24 09:44 Dose: 1 mg Documented By: MARILU Magnesium Hydroxide (Milk Of Magnesia 30 Ml Oral.Susp) 30 ml PO DAILY PRN PRN Reason: Constipation Magnesium Oxide (Magnesium Oxide 400 Mg Tablet) 800 mg PO DAILY [facility] Last Admin: 05/11/24 09:43 Dose: 800 mg Documented By: MARILU Multivitamins/Vitamin C (Multivitamin Tablet) 1 tab PO DAILY [facility] Stop: 05/12/24 11:54 Last Admin: 05/11/24 09:43 Dose: 1 tab Documented By: MARILU Ondansetron HCl (Ondansetron Hcl 4 Mg/2 Ml Vial) 4 mg IVPUSH Q8H PRN PRN Reason: Nausea and Vomiting Pharmacy Consult (Consult Rx Etoh Phenob Im/Po) 1 each MISCELLANE ONCE PRN; Protocol PRN Reason: Consult order Phenobarbital (Phenobarbital 30 Mg Tablet) 30 mg PO BID [facility]; Protocol Stop: 05/13/24 09:01 Phenobarbital (Phenobarbital 30 Mg Tablet) 30 mg PO Q24H [facility]; Protocol Stop: 05/14/24 21:01 Sodium Chloride (0.9 % Sodium Chloride Flush 3 Ml Syringe) 3 ml IVFLUSH QSHIFT [facility] Last Admin: 05/11/24 09:45 Dose: Not Given Documented By: MARILU Non-Admin Reason: No Access Thiamine HCl (Thiamine Hcl 100 Mg Tablet) 100 mg PO DAILY [facility] Stop: 05/12/24 11:54 Last Admin: 05/11/24 09:43 Dose: 100 mg Documented By: MARILU Labs 05/09/24 09:05 05/11/24 05:42 Labs: Laboratory Results - last 24 hr 05/11/24 05:42 Anion Gap 13 Estim Creat Clear Calc 107.7 Estimated GFR > 60 Random Glucose 93 Calcium 9.0 Magnesium 1.8 Microbiology Microbiology Results: Microbiology 05/09/24 09:04 Blood Culture - Preliminary Blood - Venous No growth after 48 hours. 05/09/24 09:04 Blood Culture - Preliminary Blood - Venous No growth after 48 hours. 05/09/24 Unknown Urine Culture - Final Urine clean catch - Clean Catch Midstream No growth. Assessment and Plan (1) Chronic subdural hematoma: Status: Acute (2) Hygroma: Status: Acute (3) Alcohol withdrawal seizure: Status: Acute Plan Acute withdrawal with likely withdrawal seizure Stopped drinking day prior to presentation, history of heavy drinking for many years Family reports witnessed a 7 minute long tonic-clonic seizure, postictal upon arrival to ED Continue phenobarb protocol , multivitamin, folic acid, thiamine, famotidine Seizure precautions Being followed by Addiction Team Acute lactic acidosis Lactic acid 6.9 improved to 1.5 In the setting withdrawal seizure, not sepsis Hypomagnesemia Magnesium 1.1 at time of presentation, improved to 1.7, continue magnesium oxide Hypokalemia Repeated and normalized Acute alcoholic hepatitis, mild In the setting alcohol use disorder Trend LFTs History of substance use disorder was previously on Suboxone seen by Addiction Team and placed on Suboxone low-dose 2/0.5 mg 1 film daily. Tachycardia EKG with possible SVT, resolved after treatment with Ativan and phenobarb likely due to alcohol withdrawal. Subdural hematoma and hygroma Chronic, stable HTN BP 161/105 on arrival likely due to alcohol withdrawal now improved. Tobacco use disorder smokes greater than 1 pack daily, place on nicotine patch 21 mg daily Full Code DVT Prophylaxis: Pneumatic compression due to hx of subdermal hematoma Disposition lives alone/recommend to ambulate if stable possible discharge in 24 hours Pt will require continued inpatient hospitalization for treatment of electrolyte abnormality alcohol withdrawal on phenobarb and close monitoring for alcohol withdrawal seizures. Quality Stroke Does the patient have a stroke diagnosis?: No VTE Prior VTE?: No VTE Risk Level:: Medical - moderate - high VTE Device Contraindication: N/A - Device Ordered VTE Drug Contraindication: Treatment Not Indicated
[2024-05-11 14:39] LABS: Alanine Aminotransferase 96 U/L (0-40); Albumin Level 3.5 g/dL (3.5-5.0); Alkaline Phosphatase 41 U/L (39-117); Aspartate Amino Transferase 97 U/L (5-37); Bilirubin Direct 0.6 mg/dL (0.0-0.5); Bilirubin Total 1.3 mg/dL (0.0-1.0)
[2024-05-11] MEDS: Nicotine 21 MG PATCH.TD24 TRANSDERMA (14:55)
--- NOTE | 2024-05-11 15:26 | MHC.RECOVRN ---
Met with pt to follow up after receiving Suboxone as well as complete AUDIT C brief intervention. Pts Belkys hernandez, present with pts permission. Pt laying in bed, awake, alert, engages in conversation, appears comfortable. Pt making jokes throughout discussion but continues to be guarded when discussing alcohol and substance use. Pt reports he has not used heroin/fentanyl in a few years and has done well with Suboxone. Pt reports he does not make it to appts typically when there is an increase in alcohol use but has been on and off Suboxone for years. Pt motivated to continue treatment with Suboxone as he does not want to return to heroin/fentanyl and experience overdose. Validated pts concern regarding overdose if recurrence occurs and further discussed risk of overdose. Pt reports he has had 3 overdoses. Pt reports he also has a history of crack cocaine use, last use years ago. Pt would like to continue MOUD through the [facility]. AUDIT-C Brief Intervention Pt had positive screen for unhealthy alcohol use on admission, subsequently met with t/w to discuss alcohol use and recovery supports/options. This typewriter assembler met with patient to discuss current alcohol use and concerns related to increased risk of alcohol related problems.? Pt reports 1-1.5 pints daily x 2 years. Discussed how alcohol use has impacted health, including negative impact on overall physical wellbeing. Withdrawal History: reports history of withdrawal seizures Treatment History: 1 ATS, 1 Sect [address] within the past 2 years Supports:?mary (Belkys) Discussed risk reduction strategies including drinking below the recommended limit. Provided pt with written resources including information on inpatient and outpatient treatment, MAUREEN, harm reduction, and recovery coaching. Pt plans to review resources and follow up with the [facility]. Pt provided with t/w contact information if questions or concerns arise. Denies other questions or concerns at this time.?
[2024-05-11 15:30] VITALS: BP 135/81; PULSE 71; RESP 19; TEMP 36.1; O2SAT 98
--- NOTE | 2024-05-11 15:33 | MHC.RECOVRN ---
[facility] appt 06/08/24 at 1PM. Referral added to pts dc paperwork.
--- NOTE | 2024-05-11 16:43 | MHC.CM.PN ---
Per MD rounds no discharge today. DP home with resources provided by the Recovery nurse. PATIENT WILL TRANSPORT via [facility] at [place].
[2024-05-11 19:34] VITALS: BP 126/82; PULSE 101; RESP 18; TEMP 36.6; O2SAT 99
[2024-05-11] MEDS: Acetaminophen 325 MG TABLET 650 MG PO (21:10)
[2024-05-11] MEDS: PHENobarbitaL 30 MG TABLET PO (21:10)
[2024-05-11] MEDS: 0.9 % Sodium Chloride Flush 3 ML SYRINGE IVFLUSH (21:11)
[2024-05-12] VITALS (7 sets, daily range): BP systolic 125–143; BP diastolic 69–83; PULSE 81–91; RESP 16–20; TEMP 36.1–37; O2SAT 96–99
[2024-05-12 09:01] LABS: Anion Gap 10 (12-20); Blood Urea Nitrogen 22 mg/dL (9-16); Calcium 8.7 mg/dL (8.4-10.2); Carbon Dioxide 28 mmol/L (22-29); Chloride 103 mmol/L (96-108); Estimated Glomerular Filt Rate > 60; Glucose Random 91 mg/dL (60-115); Magnesium 1.7 mg/dL (1.6-2.6); Potassium 4.1 mmol/L (3.3-5.1); Sodium 137 mmol/L (135-145)
--- NOTE | 2024-05-12 09:34 | P.PNADD_ITS ---
Subjective Subjective Date of Service: 05/12/24 Reason For Visit: acute alcohol withdrawal with seizure Interim History: Patient seen in follow up for AUD withdrawal management and OUD. Reviewed notes and city controllerkey ringer He was started on Suboxone 2mg yesterday (05/11) per his request as he had previously been prescribed Suboxone 8mg QD, but had not been able to see provider since February, which is also when he last filled his script. He is awake, alert, pleasant and engaged in interview. Regarding alcohol withdrawal: sx much improved. He reports feeling better . Discussed ongoing alcohol use. He states alcohol has been challenging for him to discontinue. Reports decreasing amount he drinks over the years, however he finds that he he still need some, because I get this feeling inside . He states that a half pint a day usually addresses his sx. Currently completing phenobarbital taper. No tremor noted. No additional seizures Regarding OUD: He reports that he has been abstinent from opiates for a long time , and has only been taking suboxone. He was last engaged in treatment in February, but has not been able to see provider so he has been buying suboxone films when he can and taking small pieces. He states that suboxone helps with cravings for opiates and decreases anxiety associated with it. He tolerated 2mg film, and asking for increase in dose. Overall appearing comfortable, but was to noted to be yawning with lacrimation at time of assessment. Review of Systems Constitutional: Reports as per HPI, Reports malaise and Reports weakness Gastrointestinal: Denies constipation, Denies loose stools and Denies nausea Reports weakness Psychiatric: Reports anxiety Mental Status Exam Mental Status Exam Patient Appearance: Appropriate Level of Consciousness: Awake, Appropriate and Alert Patient Behavior: Appropriate and Talkative Mood Description: Calm Affect Description: Calm Speech Pattern: Clear Hallucinations: None Thought Content: positive for Intact Judgement: Fair Diagnostics Vital Signs (24Hr): Vital Signs - 24 hr 05/11/24 11:32 05/11/24 15:30 05/11/24 19:34 Temperature 97.9 F 96.9 F 97.8 F Pulse Rate 87 71 101 H Respiratory Rate 18 19 18 Blood Pressure 125/71 135/81 126/82 Pulse Oximetry 97 98 99 Oxygen Delivery Method Room Air Room Air Room Air 05/12/24 00:00 05/12/24 03:57 05/12/24 06:59 Temperature 98.4 F 97.7 F 98.4 F Pulse Rate 87 91 81 Respiratory Rate 18 16 20 Blood Pressure 129/72 129/77 143/83 H Pulse Oximetry 96 98 99 Oxygen Delivery Method Room Air Room Air Room Air BMI result Body Mass Index 23.2 Labs 05/09/24 09:05 05/12/24 08:23 Labs: Laboratory Results - last 48 hr 05/11/24 05/12/24 05:42 08:23 Sodium 139 137 Potassium 3.7 D 4.1 Chloride 104 103 Carbon Dioxide 26 28 Anion Gap 13 10 L BUN 22 H 22 H Creatinine 0.81 0.90 Estim Creat Clear Calc 107.7 97.0 Estimated GFR > 60 > 60 Random Glucose 93 91 Calcium 9.0 8.7 Magnesium 1.8 1.7 Total Bilirubin 1.3 H Direct Bilirubin 0.6 H AST 97 H ALT 96 H Alkaline Phosphatase 41 Total Protein 7.0 Albumin 3.5 Medications Medications Current Medications Acetaminophen (Acetaminophen 325 Mg Tablet) 650 mg PO Q6H PRN PRN Reason: Pain, Mild 1-3,fever,headache Last Admin: 05/11/24 21:10 Dose: 650 mg Buprenorphine/Naloxone (Buprenorphine/Naloxone 2/0.5mg Film) 1 film SUBLINGUAL DAILY [facility] Last Admin: 05/11/24 10:35 Dose: 1 film Calcium Carbonate (Calcium Carbonate 750 Mg Tab.Chew) 750 mg PO Q4H PRN PRN Reason: Heartburn Famotidine (Famotidine 20 Mg Tablet) 20 mg PO BID [facility] Last Admin: 05/11/24 21:10 Dose: 20 mg Folic Acid (Folic Acid 1 Mg Tablet) 1 mg PO DAILY [facility] Stop: 05/12/24 11:54 Last Admin: 05/11/24 09:44 Dose: 1 mg Magnesium Hydroxide (Milk Of Magnesia 30 Ml Oral.Susp) 30 ml PO DAILY PRN PRN Reason: Constipation Magnesium Oxide (Magnesium Oxide 400 Mg Tablet) 800 mg PO DAILY [facility] Last Admin: 05/11/24 09:43 Dose: 800 mg Multivitamins/Vitamin C (Multivitamin Tablet) 1 tab PO DAILY [facility] Stop: 05/12/24 11:54 Last Admin: 05/11/24 09:43 Dose: 1 tab Nicotine (Nicotine 21 Mg Patch.Td24) 21 mg TRANSDERMA DAILY [facility] Last Admin: 05/11/24 14:55 Dose: 21 mg Ondansetron HCl (Ondansetron Hcl 4 Mg/2 Ml Vial) 4 mg IVPUSH Q8H PRN PRN Reason: Nausea and Vomiting Pharmacy Consult (Consult Rx Etoh Phenob Im/Po) 1 each MISCELLANE ONCE PRN; Protocol PRN Reason: Consult order Phenobarbital (Phenobarbital 30 Mg Tablet) 30 mg PO BID [facility]; Protocol Stop: 05/13/24 09:01 Last Admin: 05/11/24 21:10 Dose: 30 mg Phenobarbital (Phenobarbital 30 Mg Tablet) 30 mg PO Q24H [facility]; Protocol Stop: 05/14/24 21:01 Sodium Chloride (0.9 % Sodium Chloride Flush 3 Ml Syringe) 3 ml IVFLUSH QSHIFT [facility] Last Admin: 05/11/24 21:11 Dose: 3 ml Thiamine HCl (Thiamine Hcl 100 Mg Tablet) 100 mg PO DAILY [facility] Stop: 05/12/24 11:54 Last Admin: 05/11/24 09:43 Dose: 100 mg Allergies Allergies Allergy/AdvReac Type Severity Reaction Status Date / Time Unable to Assess Allergy Verified 05/09/24 09:12 Assessment & Plan Assessment & Plan (1) Alcohol use disorder, severe, dependence: Status: Acute Code(s): F10.20 - Alcohol dependence, uncomplicated Assessment and Plan: * discussed medications for alcohol use disorder and provided written information about these--patient would like to take time to think about this. * discussed safer drinking strategies and risks associated with ongoing drinking (2) Opioid use disorder: Status: Acute Code(s): F11.90 - Opioid use, unspecified, uncomplicated Assessment and Plan: * suboxone dose increased to 4mg daily * city controller scheduled follow up appt with [facility] provider * will need suboxone rx at time of d/c --to be sent by t/w Total time managing care of this patient today __35__ minutes.
--- NOTE | 2024-05-12 10:34 | P.PNIM_ITS ---
Subjective Subjective Date of Service: 05/12/24 Interval History: is tried, does not want to go home. States he feels weak and has not ambulated since admission. No more seizure activity Review of Systems Review of Systems: Yes all other systems are reviewed and are negative Physical Exam 2 Vital Signs: Vital Signs: Last Vital Signs Temp 98.4 F 05/12/24 06:59 Pulse 81 05/12/24 06:59 Resp 20 05/12/24 06:59 BP 143/83 H 05/12/24 06:59 Pulse Ox 99 05/12/24 06:59 O2 Del Method Room Air 05/12/24 06:59 BMI result Body Mass Index 23.2 Const: Other: General resting comfortably in no acute distress. Neck no JVD. CVS regular rate rhythm, Respiratory lungs clear to auscultation, no respiratory distress, no wheeze, no rhonchi. Gastrointestinal abdomen soft, non tender, bowel sounds audible Extremities no edema. Neuro non focal , speech clear,no tremors. Skin no rash Appropriate affect Objective Data Active Medications Acetaminophen (Acetaminophen 325 Mg Tablet) 650 mg PO Q6H PRN PRN Reason: Pain, Mild 1-3,fever,headache Last Admin: 05/11/24 21:10 Dose: 650 mg Documented By: DULCE Buprenorphine/Naloxone (Buprenorphine/Naloxone 2/0.5mg Film) 1 film SUBLINGUAL DAILY [facility] Last Admin: 05/11/24 10:35 Dose: 1 film Documented By: MARILU Calcium Carbonate (Calcium Carbonate 750 Mg Tab.Chew) 750 mg PO Q4H PRN PRN Reason: Heartburn Famotidine (Famotidine 20 Mg Tablet) 20 mg PO BID [facility] Last Admin: 05/11/24 21:10 Dose: 20 mg Documented By: DULCE Folic Acid (Folic Acid 1 Mg Tablet) 1 mg PO DAILY [facility] Stop: 05/12/24 11:54 Last Admin: 05/11/24 09:44 Dose: 1 mg Documented By: MARILU Magnesium Hydroxide (Milk Of Magnesia 30 Ml Oral.Susp) 30 ml PO DAILY PRN PRN Reason: Constipation Magnesium Oxide (Magnesium Oxide 400 Mg Tablet) 800 mg PO DAILY [facility] Last Admin: 05/11/24 09:43 Dose: 800 mg Documented By: MARILU Multivitamins/Vitamin C (Multivitamin Tablet) 1 tab PO DAILY [facility] Stop: 05/12/24 11:54 Last Admin: 05/11/24 09:43 Dose: 1 tab Documented By: MARILU Nicotine (Nicotine 21 Mg Patch.Td24) 21 mg TRANSDERMA DAILY [facility] Last Admin: 05/11/24 14:55 Dose: 21 mg Documented By: MARILU Ondansetron HCl (Ondansetron Hcl 4 Mg/2 Ml Vial) 4 mg IVPUSH Q8H PRN PRN Reason: Nausea and Vomiting Pharmacy Consult (Consult Rx Etoh Phenob Im/Po) 1 each MISCELLANE ONCE PRN; Protocol PRN Reason: Consult order Phenobarbital (Phenobarbital 30 Mg Tablet) 30 mg PO BID [facility]; Protocol Stop: 05/13/24 09:01 Last Admin: 05/11/24 21:10 Dose: 30 mg Documented By: DULCE Phenobarbital (Phenobarbital 30 Mg Tablet) 30 mg PO Q24H [facility]; Protocol Stop: 05/14/24 21:01 Sodium Chloride (0.9 % Sodium Chloride Flush 3 Ml Syringe) 3 ml IVFLUSH QSHIFT [facility] Last Admin: 05/11/24 21:11 Dose: 3 ml Documented By: DULCE Thiamine HCl (Thiamine Hcl 100 Mg Tablet) 100 mg PO DAILY [facility] Stop: 05/12/24 11:54 Last Admin: 05/11/24 09:43 Dose: 100 mg Documented By: MARILU Labs 05/09/24 09:05 05/12/24 08:23 Labs: Laboratory Results - last 24 hr 05/11/24 05/12/24 05:42 08:23 Anion Gap 10 L Estim Creat Clear Calc 97.0 Estimated GFR > 60 Random Glucose 91 Calcium 8.7 Magnesium 1.7 Total Bilirubin 1.3 H Direct Bilirubin 0.6 H AST 97 H ALT 96 H Alkaline Phosphatase 41 Total Protein 7.0 Albumin 3.5 Microbiology Microbiology Results: Microbiology 05/09/24 09:04 Blood Culture - Preliminary Blood - Venous No growth after 48 hours. 05/09/24 09:04 Blood Culture - Preliminary Blood - Venous No growth after 48 hours. Assessment and Plan (1) Alcohol withdrawal seizure: Status: Acute Plan Acute withdrawal with likely withdrawal seizure Stopped drinking day prior to presentation, history of heavy drinking for many years Family reports witnessed a 7 minute long tonic-clonic seizure, postictal upon arrival to ED Continue phenobarb protocol , multivitamin, folic acid, thiamine, famotidine Seizure precautions Being followed by Addiction Team Acute lactic acidosis Lactic acid 6.9 improved to 1.5 In the setting withdrawal seizure, not sepsis Hypomagnesemia Magnesium 1.1 at time of presentation, improved to 1.7, continue magnesium oxide Hypokalemia Repeated and normalized Acute alcoholic hepatitis, mild In the setting alcohol use disorder Trend LFTs History of substance use disorder was previously on Suboxone seen by Addiction Team and placed on Suboxone low-dose 2/0.5 mg 1 film daily. Tachycardia EKG with possible SVT, resolved after treatment with Ativan and phenobarb likely due to alcohol withdrawal. Subdural hematoma and hygroma Chronic, stable HTN BP 161/105 on arrival likely due to alcohol withdrawal now improved. Tobacco use disorder smokes greater than 1 pack daily, place on nicotine patch 21 mg daily Full Code DVT Prophylaxis: Pneumatic compression due to hx of subdermal hematoma Disposition lives alone/recommend to ambulate if stable possible discharge in 24 hours Reason for continued hospitalization: PT eval Quality Stroke Does the patient have a stroke diagnosis?: No VTE Prior VTE?: No VTE Risk Level:: Medical - moderate - high VTE Device Contraindication: N/A - Device Ordered VTE Drug Contraindication: Treatment Not Indicated
[2024-05-12] MEDS: 0.9 % Sodium Chloride Flush 3 ML SYRINGE IVFLUSH ×2 (10:38→17:03)
[2024-05-12] MEDS: Thiamine HCL 100 MG TABLET PO (10:39)
[2024-05-12] MEDS: Famotidine 20 MG TABLET PO ×2 (10:39→20:16)
[2024-05-12] MEDS: PHENobarbitaL 30 MG TABLET PO ×2 (10:39→20:16)
[2024-05-12] MEDS: Magnesium Oxide 400 MG TABLET 800 MG PO (10:39)
[2024-05-12] MEDS: Multivitamin TABLET 1 TAB PO (10:39)
[2024-05-12] MEDS: Nicotine 21 MG PATCH.TD24 TRANSDERMA (10:39)
[2024-05-12] MEDS: Buprenorphine/Naloxone 2/0.5mg FILM 1 FILM SUBLINGUAL ×2 (10:39→12:00)
[2024-05-12] MEDS: Folic Acid 1 MG TABLET PO (10:39)
--- NOTE | 2024-05-12 12:20 | MHC.CM.PN ---
Per rounds, pt. is not yet ready to DC. PT nathan said that he may benefit from out pt services, but pt. does not have a PCP, brochure was given to him on his first day in hosp. to get one. DCP:home, self care
--- NOTE | 2024-05-12 15:04 | MHC.RECOVRN ---
Followed up with pt in 486 after receiving additional 2 mg Suboxone. Pt sitting in bed, awake, alert, easily engages in conversation. Reports feeling good. Provided pt with written recovery resources as well as upcoming [facility] appt information. Pt denies questions or concerns for t/w.
[2024-05-13] MEDS: 0.9 % Sodium Chloride Flush 3 ML SYRINGE IVFLUSH
[2024-05-13 03:29] VITALS: BP 123/68; PULSE 75; RESP 16; TEMP 36.5; O2SAT 95
[2024-05-13 07:00] VITALS: BP 122/61; PULSE 71; RESP 18; TEMP 37.6; O2SAT 98
--- NOTE | 2024-05-13 08:48 | PM.DS ---
DS: Providers Provider Date of Service: 05/13/24 Date of admission: 05/09/24 11:44 Date of discharge: 05/13/24 Primary care physician: Unknown Physician Consults: 05/09/24 11:49 Addiction Medicine Routine Consulting Provider: Addiction Covering Reason for consultation: Alcohol use disorder DS: Diagnosis Discharge Diagnosis (1) Alcohol use disorder, severe, dependence: Status: Acute (2) Opioid use disorder: Status: Acute DS: Summary Hospital Course Hospital Course: HPI: Pt is a 58-year-old male with a PMH significant for?subdural hematoma, IVDU, and alcohol dependence with hx of withdrawal who presents to the ED from home after family witnessed a 7 minute long seizure. Family report pt has stopped drinking yesterday around noon. Pt with a long hx of heavy daily drinking mostly vodka, exact amount uncertain. Family report seizure was tonic-clonic and pt was confused afterwards. Upon arrival to the ED pt was initially confused and postictal, unable to follow commands or answer questions. Was loaded with Ativan and phenobarb with eventual improvement to mentation. No seizure while in the ED. during interview and exam pt awake and alert, though oriented only to self. [place] [facility] [place]. Pt does not remember when his last drink was, or how much he has been drinking lately. Complains of pain in his left hand at IV insertion site where he has been transfused IV potassium. Otherwise pt has no acute medical complaints. In the ED pt was tachycardic up to 155 and hypertensive up to 161/105. Labs were significant for lactic acidosis 6.9, potassium 3.1, magnesium 1.1, T bili 1.5, AST 259, ALT 168, and CPK 568. No leukocytosis. Stable H&H. Renal function WNL. Troponin WNL. UA not consistent with acute UTI, likely contaminated. Ethyl alcohol undetectable. CT?of head negative for acute abnormality, but showed small left-sided subdural hematoma decreased from prior and small right-sided subdural hygroma similar to prior. Abdominal ultrasound found hepatic steatosis and cholelithiasis without evidence of cholecystitis. EKG demonstrated sinus tachycardia of [address] depressions in lateral leads. Repeat EKG showed normal sinus rhythm of 70 without evidence of significant ST elevations or depressions. Pt was treated with Ativan 1 mg IV, IVF, magnesium, potassium chloride, and started on high-dose phenobarb protocol. Pt will be admitted to the hospital for treatment and further evaluation of hypomagnesemia and hypokalemia in the setting of acute alcohol withdrawal with seizure. Hospital course: #. Alcohol withdrawal with alcohol withdrawal seizure: Patient was initiated on phenobarb protocol throughout hospital course. Also initiated on thiamine. Did not have any further episode of seizure during hospitalization. His symptoms markedly improved with phenobarb protocol and patient is stable to be discharged. Addiction Team was consulted : discussed medications for alcohol use disorder and provided written information about these--patient would like to take time to think about this. discussed safer drinking strategies and risks associated with ongoing drinking #. Opioid use disorder: Patient was initiated on Suboxone. Prescription will be sent for Suboxone by Addiction Team. Addiction Team was consulted with following recommendations : suboxone dose increased to 4mg daily direct marketing coordinator scheduled follow up appt with [facility] provider will need suboxone rx at time of d/c --to be sent by t/w #. Acute lactic acidosis due to alcohol withdrawal seizure, not sepsis. Resolved before discharge #. Elevated liver enzymes due to alcohol use. Outpatient follow-up #. Hypomagnesemia and hypokalemia due to alcohol use: Repleted #. Subdural hematoma and hygroma: Chronic, stable Patient was also seen by Physical therapy during hospital course with following recommendations: Recommend follow-up with PCP for outpatient patient referral for LBP. No acute PT indicated. Patient ambulating without assistive device, independent with functional mobility. Status at Discharge Functional status at discharge: independent ambulation Time Attestation Discharge Coordination Time (in mins): 35 minutes Quality: Safe Use of Opioids Does Pt have an Active Cancer Diagnosis on the Problem List?: No Quality: Stroke Does the patient have a stroke diagnosis?: No Physical Exam Vital Signs: Vital Signs: Last Vital Signs Temp 99.7 F 05/13/24 07:00 Pulse 71 05/13/24 07:00 Resp 18 05/13/24 07:00 BP 122/61 05/13/24 07:00 Pulse Ox 98 05/13/24 07:00 O2 Del Method Room Air 05/13/24 07:00 BMI result Body Mass Index 23.2 Const: Other: General resting comfortably in no acute distress. Neck no JVD. CVS regular rate rhythm, Respiratory lungs clear to auscultation, no respiratory distress, no wheeze, no rhonchi. Gastrointestinal abdomen soft, non tender, bowel sounds audible Extremities no edema. Neuro non focal , speech clear,no tremors. Skin no rash Appropriate affect DS: Data Data Completed and Pending Labs on day of discharge: Laboratory Results - last 24 hr 05/12/24 08:23 Sodium 137 Potassium 4.1 Chloride 103 Carbon Dioxide 28 Anion Gap 10 L BUN 22 H Creatinine 0.90 Estim Creat Clear Calc 97.0 Estimated GFR > 60 Random Glucose 91 Calcium 8.7 Magnesium 1.7 Preliminary micro results at discharge 05/09/24 09:04 Blood Culture - Preliminary Blood - Venous No growth after 48 hours. 05/09/24 09:04 Blood Culture - Preliminary Blood - Venous No growth after [address] scan - head: Radiologist's impression: Small mixed attenuation left-sided subdural hematoma, decreased from prior. Small right-sided subdural hygroma, similar to prior. No new or increasing hemorrhage. Discharge Plan Discharge Anticipated Discharge Date/Time: 05/13/24 08:44 Patient Disposition: Home, Self-Care Discharge Diagnosis: Alcohol withdrawal with alcohol withdrawal seizure Referrals: Amanda Lamb, PROJECT CONTROL MANAGER [Nurse Practitioner] - 06/08/24 1:00 pm ([facility] appt 06/08/24 at 1PM [phone] Please call with questions or concerns) Physician,Ronald J [Primary Care Provider] - 1 Week Discharge Medications: New thiamine HCl (vitamin B1) 100 mg tablet 100 mg PO DAILY Qty: 30 0RF Discharge Orders: Discharge Order (Routine); Ordered 05/13/24 Ordered By: Alia Lucio Diet: Regular diet Activity on Discharge: As tolerated Stand Alone Forms: Patient Portal Discharge page Print Language: Maldivian Care Plan Goals: Follow up with addiction medicine on 06/08 Follow up with PCP in one week - outpatient PT referral for LBP Health Concerns: Alcohol use disorder with alcohol withdrawal seizure Polysubstance use disorder Plan of Treatment: Thiamine 100 mg daily Suboxone 4 mg daily Alcohol abstinence Assessment: As above
[2024-05-13] MEDS: Famotidine 20 MG TABLET PO (08:51)
[2024-05-13] MEDS: PHENobarbitaL 30 MG TABLET PO (08:51)
[2024-05-13] MEDS: Magnesium Oxide 400 MG TABLET 800 MG PO (08:51)
[2024-05-13] MEDS: Nicotine 21 MG PATCH.TD24 TRANSDERMA (08:51)
[2024-05-13] MEDS: Buprenorphine/Naloxone 4/1 mg FILM 1 FILM SUBLINGUAL (08:53)
--- NOTE | 2024-05-13 09:01 | MHC.RECOVRN ---
Met with pt to check in and provide support. Pt doing well, discharging today. Pts Suboxone rx to be sent to [facility] with quantity to last until appt on 06/08. Pt denies questions or concerns. Discussed with Amanda Lamb APRN.
--- NOTE | 2024-05-13 09:13 | MHC.CM.PN ---
Pt has been medically cleared for DC, he will transport home via bus, plan is self care.
== END 2024-05-13 09:49 | disposition home or self-care (01) | DRG 773 ==
LOC: HO.ED 10:25 → HO.EDOVER 11:55 → HO.IMC 20:33
PROVIDERS: Hospitalist; Physician Assistant; Admitting Provider Student in an Organized Health Care Education/Training Program; Emergency Provider Emergency Medicine; Visit Provider Student in an Organized Health Care Education/Training Program
DX: F10.239 Alcohol dependence with withdrawal, unspecified (principal); F11.20 Opioid dependence, uncomplicated; I62.03 Nontraumatic chronic subdural hemorrhage; E87.21 Acute metabolic acidosis; K70.10 Alcoholic hepatitis without ascites; G96.00 Cerebrospinal fluid leak, unspecified; R56.9 Unspecified convulsions; I47.10 Supraventricular tachycardia, unspecified; I10 Essential (primary) hypertension; E83.42 Hypomagnesemia; E87.6 Hypokalemia
CPT/HCPCS: 36415; 70450; 76705; 80048; 80053; 80076; 80307; 81001; 81003; 82550; 83605; 83735; 84484; 85025; 87040; 87086; 93005; 97161; 99285; J2060; J2560; J3475; J3480; J7120; S9485

== ENCOUNTER → 2024-05-09 08:45 | Outpatient (BNV) | payer OTHER, SELFPAY | PROVIDERS: Visit Provider Radiology Vascular & Interventional Radiology | DX: I62.00 Nontraumatic subdural hemorrhage, unspecified (principal); K80.20 Calculus of gallbladder without cholecystitis without obstruction; K76.2 Central hemorrhagic necrosis of liver | CPT/HCPCS: 70450; 76705 ==

== ENCOUNTER → 2024-05-09 08:51 | Outpatient (BNV) | payer OTHER, SELFPAY | PROVIDERS: Admitting Provider Student in an Organized Health Care Education/Training Program; Emergency Provider Emergency Medicine; Visit Provider Internal Medicine Cardiovascular Disease | DX: R00.0 Tachycardia, unspecified (principal); R94.31 Abnormal electrocardiogram [ECG] [EKG]; F10.939 Alcohol use, unspecified with withdrawal, unspecified | CPT/HCPCS: 93010 ==

== ENCOUNTER → 2024-05-09 11:44 | Outpatient (BNV) | payer OTHER, SELFPAY | PROVIDERS: Admitting Provider Student in an Organized Health Care Education/Training Program; Emergency Provider Emergency Medicine; Visit Provider Nurse Practitioner Psychiatric/Mental Health | DX: F10.20 Alcohol dependence, uncomplicated (principal); F11.90 Opioid use, unspecified, uncomplicated | CPT/HCPCS: 99232 ==

== ENCOUNTER → 2024-05-09 11:44 | Outpatient (BNV) | payer OTHER, SELFPAY | PROVIDERS: Admitting Provider Student in an Organized Health Care Education/Training Program; Emergency Provider Emergency Medicine; Visit Provider Student in an Organized Health Care Education/Training Program | DX: F10.939 Alcohol use, unspecified with withdrawal, unspecified (principal); R56.9 Unspecified convulsions | CPT/HCPCS: 99223; 99232 ==

== ENCOUNTER 2024-05-19 16:26 | Emergency (ER) | payer OTHER, SELFPAY ==
--- NOTE | ~2024-05-19 | CT_ITS ---
CLINICAL HISTORY: AMS, hit head, ETOH CT head without contrast Comparison: CT/SR - CT HEAD/BRAIN WO IV CON - 03/12/24 00:01 EST Findings: No intra-axial mass, midline shift, hydrocephalus, or acute hemorrhage. Small volume subdural hygroma within the right frontal region. Small mixed attenuation left-sided subdural hemorrhage, stable. Mild diffuse volume loss. Left MMA embolization material again noted. There is no sinus or mastoid fluid. The orbits are within normal limits. No skull fracture. IMPRESSION: Small mixed attenuation left-sided subdural hematoma, stable. Small right-sided subdural hygroma, similar to prior. No new or increasing hemorrhage. This document has been electronically signed by: Douglas Cazares MD on 05/19/2024 17:47:29
--- NOTE | ~2024-05-19 | CT_ITS ---
CLINICAL HISTORY: fall ETOH use CT cervical spine without contrast Comparison: CT/SR - CT CERVICAL SPINE WO IV CON - 03/12/24 00:01 EST Findings: Normal vertebral body alignment. Mild multilevel degenerative change, most pronounced C5-C6. No acute fractures or dislocations. The facet joints are normally imbricating. No prevertebral soft tissue edema No acute findings on limited view of the intracranial contents. No cervical fluid collections or masses. No consolidation or effusion at the lung apices. IMPRESSION: No acute findings. This document has been electronically signed by: Douglas Cazares MD on 05/19/2024 17:34:50
--- NOTE | ~2024-05-19 | XR_ITS ---
CLINICAL HISTORY: fall 4 view left wrist Comparison: None Findings: No fractures or dislocations. Degenerative changes seen throughout the wrist and at the base of the left 1st metacarpal. No radiopaque foreign body. IMPRESSION: No fracture or malalignment. Moderate degenerative changes. This document has been electronically signed by: Douglas Cazares MD on 05/19/2024 19:04:19
[2024-05-19 16:30] VITALS: BP 126/64; PULSE 80; O2SAT 98
[2024-05-19 16:42] VITALS: BP 110/68; PULSE 67; RESP 18; TEMP 36.6; O2SAT 98; BMI 27.2
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
--- NOTE | 2024-05-19 17:09 | PC.NURSE ---
PT brought to CT , Changed into hospital attire by security, belongings locked in hallway closet. Patient argumentative with staff repeating I`m not stupid. Difficult to obtain information from.
[2024-05-19 17:29] LABS: Eosinophils Percent Auto 0.8 % (0-4); Hematocrit 33.2 % (42.0-52.0); Lymphocytes Absolute Auto 2.5 X10*3/uL (1.2-4.9); Lymphocytes Percent Auto 62.5 % (20-40); MANUAL DIFF FLAG SCAN; Mean Corpuscular HGB Conc 33.1 g/dl (31.0-36.0); Mean Corpuscular Hemoglobin 30.5 pg (27.0-33.0); Monocytes Absolute Auto 0.7 X10*3/uL (0.1-1.2); Monocytes Percent Auto 16.6 % (2-11); Neutrophils Absolute Auto 0.8 x10*3/uL (2.0-8.3); Neutrophils Percent Auto 19.1 % (45-73); Platelet Count 262 X10*3/uL (160-400); Red Blood Count 3.61 X10*6/uL (4.60-5.80); Red Cell Distribution Width 14.3 % (11.0-16.0); SCAN SMEAR FLAG 1; White Blood Count 3.9 X10*3/uL (4.8-10.8)
[2024-05-19 17:50] LABS: Alanine Aminotransferase 57 U/L (0-40); Albumin Level 3.9 g/dL (3.5-5.0); Alkaline Phosphatase 53 U/L (39-117); Anion Gap 16 (12-20); Aspartate Amino Transferase 86 U/L (5-37); Bilirubin Direct 0.3 mg/dL (0.0-0.5); Bilirubin Total 0.4 mg/dL (0.0-1.0); Blood Urea Nitrogen 12 mg/dL (9-16); Calcium 8.6 mg/dL (8.4-10.2); Carbon Dioxide 27 mmol/L (22-29); Chloride 103 mmol/L (96-108); Creatinine Clr Calc Pharmacy 101.8; Estimated Glomerular Filt Rate > 60; Ethanol 357 mg/dL; Glucose Random 96 mg/dL (60-115); Magnesium 1.7 mg/dL (1.6-2.6); Potassium 4.2 mmol/L (3.3-5.1); Sodium 142 mmol/L (135-145); Total Protein 7.8 g/dL (6.5-8.0)
[2024-05-19 18:09] LABS: SLIDE REVIEW VERIFIED
[2024-05-19 18:14] VITALS: BP 110/65; PULSE 65; RESP 16; TEMP 36.8; O2SAT 99
[2024-05-19 20:01] VITALS: BP 125/73; PULSE 78; RESP 16; TEMP 36.8; O2SAT 95
[2024-05-19 20:23] LABS: Amphetamine Screen Urine Not Detected (Not Detect); Barbiturates, Urine POSITIVE (Not Detect); Benzodiazepines Screen Urine Not Detected (Not Detect); Buprenorphine Scr Positive (Not Detect); Cannabinoid Screen Urine Not Detected (Not Detect); Cocaine Screen Urine Not Detected (Not Detect); Fentanyl, urine Not Detected (Not Detect); Methadone Screen, Urine Not Detected (Not Detect); Opiate Screen Urine Not Detected (Not Detect); Oxycodone Screen Urine Not Detected (Not Detect); Phencyclidine Screen Urine Not Detected (Not Detect)
[2024-05-19] MEDS: LORazepam 1 MG TABLET 2 MG PO (20:32)
[2024-05-19 21:32] VITALS: RESP 16
[2024-05-20 05:23] VITALS: BP 141/81; PULSE 70; RESP 16; TEMP 37.2; O2SAT 96
--- NOTE | 2024-05-20 07:13 | PC.NURSE ---
Dietary called for breakfast tray.
--- NOTE | 2024-05-20 07:45 | PHA.MEDREC ---
Addendum entered by Odette Cruz [facility] 05/20/24 07:55: reviewed Original Note: Pharmacy Consult ? Medication Reconciliation Pharmacy has completed the medication reconciliation. Patient got qty of 4-1mg Suboxone on 05/13/24 and looking at med rec Dr. Lucio added Vitamin B-1 on 05/13/24.
[2024-05-20 08:27] VITALS: BP 141/81; PULSE 70; RESP 16; TEMP 37.2; O2SAT 96
== END 2024-05-20 11:32 | disposition home or self-care (01) ==
PROVIDERS: Emergency Provider Emergency Medicine; PCP Internal Medicine
DX: F10.10 Alcohol abuse, uncomplicated (principal); S09.90XA Unspecified injury of head, initial encounter; S69.92XA Unspecified injury of left wrist, hand and finger(s), initial encounter; W19.XXXA Unspecified fall, initial encounter; Y93.9 Activity, unspecified; Y92.9 Unspecified place or not applicable; Y99.9 Unspecified external cause status
CPT/HCPCS: 36415; 70450; 72125; 73110; 80048; 80076; 80307; 82550; 83735; 85025; 99284

== ENCOUNTER → 2024-05-19 16:38 | Outpatient (BNV) | payer OTHER, SELFPAY | PROVIDERS: Emergency Provider Emergency Medicine; PCP Internal Medicine; Visit Provider Radiology Vascular & Interventional Radiology | DX: R41.82 Altered mental status, unspecified (principal); S06.5X0A Traumatic subdural hemorrhage without loss of consciousness, initial encounter; M25.532 Pain in left wrist; Z03.89 Encounter for observation for other suspected diseases and conditions ruled out; W01.198A Fall on same level from slipping, tripping and stumbling with subsequent striking against other object, initial encounter | CPT/HCPCS: 70450; 72125; 73110 ==

== ENCOUNTER 2024-06-29 21:07 | Inpatient (IN) | payer OTHER, SELFPAY ==
--- NOTE | ~2024-06-29 | US_ITS ---
EXAMINATION: US ABDOMEN LIMITED CLINICAL INFORMATION: Elevated LFTs. COMPARISON: 05/09/[address] abdomen and pelvis 03/12/2024. TECHNIQUE: Real-time imaging of the right upper quadrant abdominal viscera. FINDINGS: PANCREAS: Visualized portions are unremarkable. LIVER: There is mildly enlarged with right hepatic lobe measuring 17.0 cm. The liver contour is normal. Parenchymal echogenicity is diffusely increased. No focal hepatic lesion. There is mild intrahepatic ductal dilatation. GALLBLADDER: The gallbladder is physiologically distended without evidence of stones, sludge, polyps, wall thickening or pericholecystic fluid. COMMON BILE DUCT: Abnormally dilated measuring 9 mm in the sherron hepatis, and 15 mm more proximally. RIGHT KIDNEY: There is mild caliectasis with mild pelvic fullness. No renal calculi or focal parenchymal lesions. The kidney measures 13.4 cm in maximum dimension. FREE FLUID: None. US/US abdomen limited IMPRESSION: 1. Findings highly suggestive of acute cholecystitis. There are gallbladder stones, echogenic bile, mild wall thickening, small amounts of pericholecystic fluid and a positive sonographic Wood sign. 2. Mild hepatomegaly with diffusely increased hepatic echogenicity suggestive of steatosis. 3. There is mild intra and extrahepatic biliary dilatation, with the common bile duct measuring up to 15 mm proximally. Common duct obstruction is not excluded. 4. Mild caliectasis of the right kidney. Findings communicated to Dr. Lucio via secure text at 11:15 AM, 06/30/2024. Electronically signed by: Ruben Dutta MD 06/30/2024 11:15 AM EDT
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
--- NOTE | ~2024-06-29 | FL_ITS ---
EXAMINATION: FL GUIDANCE ONLY HISTORY: ERCP COMPARISON: Correlation is made with an MRCP dated 07/01/2024. TECHNIQUE: Fluoroscopy time: 4.3 seconds. Cumulative Dose: 69.4 mGy. DAP: 18.9 mGym2 Images: 10. FINDINGS: Images demonstrate opacification of the common bile duct which is mildly dilated, as well as intrahepatic biliary radicles. The common bile duct calculi noted on MRI are not well demonstrated on these images. The final images demonstrate balloon sweeping of the common bile duct with clearance of contrast material into the duodenum. FL/FL guidance in OR IMPRESSION: Fluoroscopy during procedure. Please see procedure report for additional information. Electronically signed by: Dorian Crouch MD 07/03/2024 07:20 AM EDT
--- NOTE | ~2024-06-29 | MR_ITS ---
CLINICAL HISTORY: Elevated LFTs, Gallstones, Dilated CBD MRCP without gadolinium Comparison: None Findings: Linear atelectasis in the left lower lobe. Trace bilateral pleural effusions. Hepatomegaly measuring 22.7 cm in the craniocaudal dimension. Trace perihepatic ascites. Cholelithiasis with gallbladder wall edema. Dilated CBD measuring up to 9 mm. Stone in the distal CBD measuring 6 mm. Mild fullness of the right collecting system without hydronephrosis. Kidneys are otherwise within normal limits. Normal caliber of the pancreatic duct. Pancreatic parenchyma is within normal limits. No obstruction of the visualized bowel. IMPRESSION: 1. 6 mm obstructing distal CBD stone. 2. Cholelithiasis with gallbladder wall edema concerning for acute cholecystitis. 3. Trace bilateral pleural effusions and perihepatic ascites This document has been electronically signed by: Kai Jensen MD on 07/01/2024 21:24:33
--- NOTE | ~2024-06-29 | CT_ITS ---
CLINICAL HISTORY: neck trauma CT cervical spine without contrast Comparison: CT/SR - CT CERVICAL SPINE WO IV CON - 05/19/24 16:46 EDT Findings: Vertebral alignment is within normal limits. Mild multilevel degenerative disc disease and facet arthrosis. No acute fractures or dislocations. Visualized intracranial contents are unremarkable. Soft tissues of the neck are normal. No consolidation or effusion at the lung apices. IMPRESSION: No acute findings. This document has been electronically signed by: Flo Fields MD on 06/29/2024 23:26:48
[2024-06-29 21:40] VITALS: BP 125/84; BP 132/79; PULSE 100; PULSE 79; RESP 18; TEMP 36.4; O2SAT 95; O2SAT 98; BMI 21.6
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
[2024-06-29 21:44] VITALS: BP 125/81; PULSE 84; RESP 18; TEMP 36.4; O2SAT 98
[2024-06-29 22:16] LABS: MANUAL DIFF FLAG NO
[2024-06-29 22:19] LABS: Basophils Absolute Auto 0.1 X10*3/uL (0.0-0.2); Basophils Percent Auto 0.8 % (0-2); Eosinophils Percent Auto 0.3 % (0-4); Hematocrit 22.5 % (42.0-52.0); Hemoglobin 8.1 g/dl (14.0-18.0); Imm Gran Abs Auto 0.03 X10*3/uL (0.00-0.03); Imm Gran Pct Auto 0.5 % (0.0-0.4); Lymphocytes Absolute Auto 2.4 X10*3/uL (1.2-4.9); Lymphocytes Percent Auto 39.5 % (20-40); Mean Corpuscular Hemoglobin 30.7 pg (27.0-33.0); Mean Corpuscular Volume 85.2 fL (80.0-98.0); Monocytes Absolute Auto 0.9 X10*3/uL (0.1-1.2); Monocytes Percent Auto 14.6 % (2-11); NRBC Pct Auto 0.3 /100WBC (0.0-0.2); Neutrophils Absolute Auto 2.7 x10*3/uL (2.0-8.3); Neutrophils Percent Auto 44.3 % (45-73); Platelet Count 198 X10*3/uL (160-400); Red Blood Count 2.64 X10*6/uL (4.60-5.80); Red Cell Distribution Width 14.2 % (11.0-16.0); White Blood Count 6.2 X10*3/uL (4.8-10.8)
[2024-06-29] MEDS: Ondansetron ODT 4 MG TAB.RAPDIS TRANSLINGU (22:23)
[2024-06-29 22:24] LABS: Prothrombin Time 11.2 SEC (10.9-12.4)
[2024-06-29 22:32] LABS: Alanine Aminotransferase 71 U/L (0-40); Albumin Level 3.7 g/dL (3.5-5.0); Alkaline Phosphatase 244 U/L (39-117); Anion Gap 25 (12-20); Aspartate Amino Transferase 165 U/L (5-37); Bilirubin Direct 3.9 mg/dL (0.0-0.5); Bilirubin Total 5.4 mg/dL (0.0-1.0); Blood Urea Nitrogen 19 mg/dL (9-16); Calcium 8.4 mg/dL (8.4-10.2); Carbon Dioxide 21 mmol/L (22-29); Chloride 96 mmol/L (96-108); Creatinine Clr Calc Pharmacy 90.3; Estimated Glomerular Filt Rate > 60; Ethanol 380 mg/dL; Glucose Random 106 mg/dL (60-115); Potassium 4.1 mmol/L (3.3-5.1); Sodium 138 mmol/L (135-145); Total Protein 7.8 g/dL (6.5-8.0)
--- NOTE | 2024-06-29 23:23 | PC.NURSE ---
Took over OZZIE Ventura, pt sleeping and still on C-spine precautions. pt a waiting CT results.
--- NOTE | 2024-06-29 23:39 | ECG_ITS ---
Test Reason : check qtc Blood Pressure : */* mmHG Vent. Rate : 88 BPM Atrial Rate : 88 BPM P-R Int : 160 ms QRS Dur : 82 ms QT Int : 386 ms P-R-T Axes : 79 6 66 degrees QTcB Int : 467 ms Sinus rhythm with Premature atrial complexes Nonspecific T wave abnormality Prolonged QT Abnormal ECG When compared with ECG of 09-May-2024 10:49, Premature atrial complexes are now Present Nonspecific T wave abnormality now evident in Lateral leads Referred By: Lynette Romero Electronically Signed By: Jose Schreiber
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
[2024-06-29 23:54] LABS: Magnesium 1.3 mg/dL (1.6-2.6)
[2024-06-29] MEDS: Thiamine HCL 200 MG in 0.9 % Sodium Chloride 100 ML 204 MG IV (23:59)
[2024-06-30] VITALS (7 sets, daily range): BP systolic 114–142; BP diastolic 59–82; PULSE 78–98; RESP 15–20; TEMP 36.7–37.6; O2SAT 96–99
[2024-06-30 00:03] LABS: OBS Int Ctl Valid YES; OBS1 NEGATIVE (NEGATIVE)
[2024-06-30] MEDS: 0.9 % Sodium Chloride Flush 3 ML SYRINGE IVFLUSH ×3 (00:04→16:31)
[2024-06-30] MEDS: PHENobarbitaL sodium 130 MG/ML IM ONCE 347 MG IM (00:13)
--- NOTE | 2024-06-30 00:19 | PC.NURSE ---
pt changed into hospital attire, labs collected and IV placed, pt given a sandwich and a drink
[2024-06-30] MEDS: Magnesium Sulfate/H2O 2 GM/50 ML PIGGYBACK IV (00:26)
[2024-06-30] MEDS: Lactated Ringers 1,000 ML 999 ML IV (00:26)
--- NOTE | 2024-06-30 00:53 | PC.NURSE ---
pt medicated per may. pt on bedside tele monitor
[2024-06-30] MEDS: Nicotine 21 MG PATCH.TD24 TRANSDERMA (00:59)
--- NOTE | 2024-06-30 01:06 | PC.NURSE ---
urine collected and sent.
[2024-06-30 01:18] LABS: Amphetamine Screen Urine Not Detected (Not Detect); Barbiturates, Urine POSITIVE (Not Detect); Benzodiazepines Screen Urine Not Detected (Not Detect); Buprenorphine Scr Not Detected (Not Detect); Cannabinoid Screen Urine Not Detected (Not Detect); Cocaine Screen Urine Not Detected (Not Detect); Fentanyl, urine Not Detected (Not Detect); Methadone Screen, Urine Not Detected (Not Detect); Opiate Screen Urine Not Detected (Not Detect); Oxycodone Screen Urine Not Detected (Not Detect); Phencyclidine Screen Urine Not Detected (Not Detect)
--- NOTE | 2024-06-30 02:00 | PC.NURSE ---
pt sleeping at this time.
[2024-06-30] MEDS: PHENobarbitaL sodium 130 MG/ML VIAL IM Q3Hx2 260 MG IM ×2 (03:24→05:50)
--- NOTE | 2024-06-30 03:28 | PC.NURSE ---
medicated per may. pt resting in bed no sign of distress.
[2024-06-30 04:51] LABS: MANUAL DIFF FLAG NO
[2024-06-30 04:57] LABS: Basophils Percent Auto 0.5 % (0-2); Eosinophils Percent Auto 0.7 % (0-4); Hemoglobin 7.1 g/dl (14.0-18.0); Imm Gran Abs Auto 0.02 X10*3/uL (0.00-0.03); Imm Gran Pct Auto 0.5 % (0.0-0.4); Lymphocytes Absolute Auto 1.8 X10*3/uL (1.2-4.9); Lymphocytes Percent Auto 43.9 % (20-40); Mean Corpuscular HGB Conc 36.8 g/dl (31.0-36.0); Mean Corpuscular Hemoglobin 31.3 pg (27.0-33.0); Mean Platelet Volume 10.4 fL (9.4-12.4); Monocytes Absolute Auto 0.7 X10*3/uL (0.1-1.2); Monocytes Percent Auto 17.6 % (2-11); Neutrophils Absolute Auto 1.5 x10*3/uL (2.0-8.3); Neutrophils Percent Auto 36.8 % (45-73); Platelet Count 177 X10*3/uL (160-400); Red Blood Count 2.27 X10*6/uL (4.60-5.80); Red Cell Distribution Width 13.9 % (11.0-16.0); White Blood Count 4.2 X10*3/uL (4.8-10.8)
[2024-06-30 04:59] LABS: Hematocrit 19.3 % (42.0-52.0)
[2024-06-30 05:15] LABS: Magnesium 1.7 mg/dL (1.6-2.6)
[2024-06-30 05:22] LABS: Albumin Level 3.2 g/dL (3.5-5.0); Alkaline Phosphatase 206 U/L (39-117); Anion Gap 20 (12-20); Aspartate Amino Transferase 130 U/L (5-37); Bilirubin Total 4.7 mg/dL (0.0-1.0); Blood Urea Nitrogen 19 mg/dL (9-16); Calcium 8.2 mg/dL (8.4-10.2); Carbon Dioxide 23 mmol/L (22-29); Chloride 99 mmol/L (96-108); Creatinine Clr Calc Pharmacy 100.4; Estimated Glomerular Filt Rate > 60; Glucose Random 114 mg/dL (60-115); Potassium 2.7 mmol/L (3.3-5.1); Sodium 139 mmol/L (135-145); Total Protein 6.5 g/dL (6.5-8.0)
--- NOTE | 2024-06-30 05:22 | PC.NURSE ---
pt sleeping no sign of withdrawal or distress at this time.
[2024-06-30 05:32] LABS: Alanine Aminotransferase 61 U/L (0-40)
[2024-06-30] MEDS: Pantoprazole Sodium 40 MG/10 ML VIAL IVPUSH ×3 (05:50→16:31)
--- NOTE | 2024-06-30 05:57 | PC.NURSE ---
pt given a afia richard , medicated per may, pt resting with call bates at the bedside.
--- NOTE | 2024-06-30 06:30 | PM.EVENT ---
Event Note Date of Service: 06/30/24 Event Note: Noted further drop in hemoglobin. GI consult Time Spent With Patient Time: Total time managing care of this patient today ____ minutes.
[2024-06-30] MEDS: Potassium Chloride/H20 10 MEQ/100 ML PIGGYBACK 100 MEQ IV ×4 (07:18→10:38)
[2024-06-30] MEDS: Potassium Chloride Packet 20 MEQ PACKET 40 MEQ PO (08:23)
[2024-06-30 08:51] LABS: Iron 223 mcg/dL (45-160); Percent Iron Saturation 90 % (15-50); Total Iron Binding Capacity 248 mcg/dL (228-428); Unsaturated Iron Binding < 25 ug/dL
--- NOTE | 2024-06-30 08:59 | PHA.MEDREC ---
Addendum entered by Sincere Monroe RPh 06/30/24 10:32: Med rec was reviewed by [facility]. Original Note: Pharmacy Consult ? Medication Reconciliation Pharmacy has completed the medication reconciliation. Spoke to patient to confirm med list. Patient states he only takes Suboxone 4-1 mg films , however he has been out of medications for a few days.
[2024-06-30 09:40] LABS: Ferritin 2683 ng/mL (20-250)
[2024-06-30 10:30] LABS: Folate 4.7 ng/mL (> or = 4.0); Vitamin B12 352 pg/mL (200-900)
--- NOTE | 2024-06-30 10:53 | PC.NURSE ---
Orders placed for blood transfusion. Blood bank notifies this RN blood is ready at 1020. Attending notified at 1033 for the need for completed blood transfusion consent form. Blood bank advised awaiting consent form.
[2024-06-30] MEDS: Acetaminophen 1,000 MG/100 ML PIGGYBACK 400 MG IV (12:01)
--- NOTE | 2024-06-30 12:17 | MHC.CM.PN ---
CM met with Patient at bedside, in the ED. 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 Home/resume Suboxone (Patient picks it up at [facility]) VS Recovery Team intervention r/t ETOH, is the tentative goal and CM has initiated and will follow for dc planning. PCP is from a practice in [place] but Patient can not recall the name of the MD, nor the practice. Patient has no one to name as a HCP and he will need assist with transport, at time of dc.
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
--- NOTE | 2024-06-30 16:48 | P.PNIM_ITS ---
Subjective Subjective Date of Service: 06/30/24 Interval History: alcohol use dis Review of Systems mild tremers denies abd pain no fevers Review of Systems: Yes all other systems are reviewed and are negative Physical Exam 2 Vital Signs: Vital Signs: Last Vital Signs Temp 98.5 F 06/30/24 16:03 Pulse 78 06/30/24 16:03 Resp 20 06/30/24 16:03 BP 136/82 06/30/24 16:03 Pulse Ox 96 06/30/24 16:03 O2 Del Method Room Air 06/30/24 16:03 BMI result Body Mass Index 21.6 Appearance: Alert.? Oriented X3.? cvs: rrr, [id number]. res: air entry fair , no rales or wheezing. abd: soft ,nt, bs present. ext pulses present , no cyanosis. neuro: axo3 , nonfocal. Objective Data Active Medications Acetaminophen (Acetaminophen 325 Mg Tablet) 650 mg PO Q6H PRN PRN Reason: Pain, Mild 1-3,fever,headache Calcium Carbonate (Calcium Carbonate 750 Mg Tab.Chew) 750 mg PO Q4H PRN PRN Reason: Heartburn Magnesium Hydroxide (Milk Of Magnesia 30 Ml Oral.Susp) 30 ml PO DAILY PRN PRN Reason: Constipation Melatonin (Melatonin 3 Mg Tablet) 6 mg PO BEDTIME PRN PRN Reason: Insomnia Nicotine (Nicotine 21 Mg Patch.Td24) 21 mg TRANSDERMA DAILY [facility] Last Admin: 06/30/24 00:59 Dose: 21 mg Documented By: CIRO Ondansetron HCl (Ondansetron Hcl 4 Mg/2 Ml Vial) 4 mg IVPUSH Q8H PRN PRN Reason: Nausea and Vomiting Pantoprazole Sodium (Pantoprazole Sodium 40 Mg/10 Ml Vial) 40 mg IVPUSH BID@0630,1630 [facility] Last Admin: 06/30/24 16:31 Dose: 40 mg Documented By: KATHERINE Pharmacy Consult (Consult Rx Etoh Phenob Im/Po) 1 each MISCELLANE ONCE PRN; Protocol PRN Reason: Consult order Phenobarbital (Phenobarbital 15 Mg Tablet) 45 mg PO BID [facility]; Protocol Stop: 07/02/24 09:01 Phenobarbital (Phenobarbital 15 Mg Tablet) 15 mg PO BID [facility]; Protocol Stop: 07/04/24 09:01 Phenobarbital (Phenobarbital 15 Mg Tablet) 15 mg PO DAILY [facility]; Protocol Stop: 07/06/24 09:01 Phenobarbital Sodium (Phenobarbital Sodium 130 Mg/Ml Im Once) 347 mg IM ONCE ONE; Protocol Stop: 06/30/24 23:46 Last Admin: 06/30/24 00:13 Dose: 347 mg Documented By: CIRO Sodium Chloride (0.9 % Sodium Chloride Flush 3 Ml Syringe) [facility] Last Admin: 06/30/24 16:31 Dose: 3 ml Documented By: KATHERINE Labs 06/30/24 16:46 06/30/24 16:46 Labs: Laboratory Results - last 24 hr 06/29/24 06/29/24 06/30/24 22:09 23:53 01:04 MCV 85.2 MCH 30.7 MCHC 36.0 RDW 14.2 Plt Count 198 MPV 11.0 Immature Gran % (Auto) 0.5 H Neut % (Auto) 44.3 L Lymph % (Auto) 39.5 [place] % (Auto) 14.6 H Eos % (Auto) 0.3 Baso % (Auto) 0.8 Lymph # (Auto) 2.4 [place] # (Auto) 0.9 Eos # (Auto) 0.0 Baso # (Auto) 0.1 Abs Immat Gran (auto) 0.03 Absolute Neuts (auto) 2.7 Absolute Nucleated RBC 0.020 H Nucleated RBC % (auto) 0.3 H PT 11.2 INR 1.0 Anion Gap 25 H Estim Creat Clear Calc 90.3 Estimated GFR > 60 Random Glucose 106 Calcium 8.4 Magnesium 1.3 L* Iron TIBC % Saturation Unsat Iron Binding Ferritin Total Bilirubin 5.4 H Direct Bilirubin 3.9 H AST 165 H ALT 71 H Alkaline Phosphatase 244 H Total Protein 7.8 Albumin 3.7 Vitamin B12 Folate Stool Occult Blood NEGATIVE Urine Opiates Screen Not Detected Ur Buprenorphine Scrn Not Detected Ur Oxycodone Screen Not Detected Urine Methadone Screen Not Detected Urine Fentanyl Screen Not Detected Ur Barbiturates Screen POSITIVE H Ur Phencyclidine Scrn Not Detected Ur Amphetamines Screen Not Detected U Benzodiazepines Scrn Not Detected Urine Cocaine Screen Not Detected U Marijuana (THC) Screen Not Detected Ethyl Alcohol 380 H* Blood Type AB Positive Antibody Screen NEGATIVE Crossmatch See Detail 06/30/24 06/30/24 04:22 09:32 MCV 85.0 MCH 31.3 MCHC 36.8 H RDW 13.9 Plt Count 177 MPV 10.4 Immature Gran % (Auto) 0.5 H Neut % (Auto) 36.8 L Lymph % (Auto) 43.9 H [place] % (Auto) 17.6 H Eos % (Auto) 0.7 Baso % (Auto) 0.5 Lymph # (Auto) 1.8 [place] # (Auto) 0.7 Eos # (Auto) 0.0 Baso # (Auto) 0.0 Abs Immat Gran (auto) 0.02 Absolute Neuts (auto) 1.5 L Absolute Nucleated RBC 0.000 Nucleated RBC % (auto) 0.0 PT INR Anion Gap 20 Estim Creat Clear Calc 100.4 Estimated GFR > 60 Random Glucose 114 Calcium 8.2 L Magnesium 1.7 Iron 223 H TIBC 248 % Saturation 90 H Unsat Iron Binding < 25 Ferritin 2683 H Total Bilirubin 4.7 H Direct Bilirubin AST 130 H ALT 61 H Alkaline Phosphatase 206 H Total Protein 6.5 Albumin 3.2 L Vitamin B12 352 Folate 4.7 Stool Occult Blood Urine Opiates Screen Ur Buprenorphine Scrn Ur Oxycodone Screen Urine Methadone Screen Urine Fentanyl Screen Ur Barbiturates Screen Ur Phencyclidine Scrn Ur Amphetamines Screen U Benzodiazepines Scrn Urine Cocaine Screen U Marijuana (THC) Screen Ethyl Alcohol Blood Type Antibody Screen Crossmatch Assessment and Plan (1) Hypomagnesemia: Status: Acute (2) Elevated LFTs: Status: Acute Assessment and Plan: 58-year-old male with pertinent history of alcohol use disorder with history of alcohol withdrawal seizures, tobacco use disorder, chronic subdural hematoma, polysubstance IV drug use disorder who presents to the emergency department after a fall. Alcohol use disorder: Initiated on phenobarb protocol . Monitor CIWA. Consulted Addiction Team. Continue thiamine Fall in the setting of above Alcoholic hepatitis: Trend LFTs. Imaging pending. MDF 6.8 on admission. Defer steroids Normocytic anemia: denies melena or hematochezia. Stool occult negative. given 1prbc clear liquid diet Ordered IV Protonix. moniter h/h h/h is improved from 7.1/19.3 to 7.8/21.7 Hypomagnesemia/hypokalemia due to alcohol use: Repleted, moniter renal function and electrolytes closely History of polysubstance use disorder: On Suboxone. UDS pending. Addiction Team as above Subdural hematoma: Chronic and stable Tobacco use disorder: Ordered nicotine patch DVT prophylaxis: Mechanical. Defer Lovenox in the setting of subdural hematoma Quality Stroke Does the patient have a stroke diagnosis?: No VTE Prior VTE?: No VTE Risk Level:: Medical - moderate - high VTE Device Contraindication: N/A - Device Ordered VTE Drug Contraindication: Treatment Not Indicated
[2024-06-30 16:51] LABS: Hematocrit 21.7 % (42.0-52.0); Hemoglobin 7.8 g/dl (14.0-18.0)
[2024-06-30 17:06] LABS: Anion Gap 18 (12-20); Blood Urea Nitrogen 18 mg/dL (9-16); Calcium 8.8 mg/dL (8.4-10.2); Carbon Dioxide 24 mmol/L (22-29); Chloride 102 mmol/L (96-108); Creatinine Clr Calc Pharmacy 104.2; Estimated Glomerular Filt Rate > 60; Glucose Random 118 mg/dL (60-115); Potassium 3.8 mmol/L (3.3-5.1); Sodium 140 mmol/L (135-145)
--- NOTE | 2024-06-30 19:06 | PM.EVENT ---
Event Note Date of Service: 06/30/24 Event Note: Ultrasound with possible acute cholecystitis. Will start IV antibiotics and consult General surgery. Time Spent With Patient Time: Total time managing care of this patient today ____ minutes.
--- NOTE | 2024-06-30 19:28 | PM.EVENT ---
Event Note Date of Service: 06/30/24 Event Note: GI Consult-Full note dictated. History from patient, significant other, and EMR Imp: 1. EtOH-induced hepatitis and chronic liver disease. 2. Anemia but with no signs of acute or chronic GI bleeding with elevated iron studies. 3. Gallstones and dilated CBD but no clinical signs of cholecystitis/cholangitis---I suspect the U/S findings of GB wall thickening and some surrounding fluid are due to his chronic liver disease. Recs: 1. Supportive care for the EtOH-induced hepatitis. No need for steroids at this time based on his labs. Check Hep A,B, and C. F/U LFT's and PT/INR. Will check AFP level and Hereditary hemochromatosis genetic testing. 2. No need for upper endo or colonoscopy at this time in regard to his anemia given Heme negative stool, elevated Iron studies, normal B12 and Folate, and no signs of GI blood loss. 3. Will try to get a MRCP to R/O CBD stones and obstruction if there are no contraindications to a MRI in regard to the intracranial metal seen on his imaging studies. Thanks Time Spent With Patient Time: Total time managing care of this patient today ____ minutes.
[2024-06-30] MEDS: PHENobarbitaL 15 MG TABLET 45 MG PO (20:10)
[2024-06-30] MEDS: Piperacillin Sodium/Tazobactam 4.5 GM in 0.9 % Sodium Chloride 100 ML IV (20:10)
[2024-06-30] MEDS: Melatonin 3 MG TABLET 6 MG PO (20:23)
--- NOTE | 2024-06-30 20:23 | PC.NURSE ---
pt resting comfortably on stretcher in no apparent distress, offers no current complaints or acute pain. denies alcohol w/d symptoms. medicated per mar with phenobarb and zosyn. melatonin administered as requested. visitor at bedside. MRI screening form filled out. pt on wood getter - vitals updated. call bates within reach plan of care continues.
--- NOTE | 2024-06-30 23:08 | MHC.EDTECH ---
this tech assumed care @[id number]
[2024-07-01] VITALS (14 sets, daily range): BP systolic 114–150; BP diastolic 68–82; PULSE 74–95; RESP 16–118; TEMP 36.3–37.4; O2SAT 96–100; BMI 22.3
[2024-07-01] MEDS: Cyclobenzaprine HCl 10 MG TABLET PO (00:11)
[2024-07-01] MEDS: 0.9 % Sodium Chloride Flush 3 ML SYRINGE IVFLUSH ×4 (00:13→21:16)
[2024-07-01] MEDS: Acetaminophen 325 MG TABLET 650 MG PO (01:04)
[2024-07-01] MEDS: Piperacillin Sodium/Tazobactam 4.5 GM in 0.9 % Sodium Chloride 100 ML IV ×4 (01:10→21:23)
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
[2024-07-01] MEDS: Pantoprazole Sodium 40 MG/10 ML VIAL IVPUSH ×2 (05:24→17:44)
--- NOTE | 2024-07-01 05:50 | P.CONGS_ITS ---
History of Present Illness Consult details Consult date: 07/01/24 <MIMI Savage Last Filed: 07/01/24 07:50> Requesting physician: Alia Lucio <MIMI Savage Filed: 07/01/24 07:50> Narrative: 58-year-old male with PMH of alcohol use disorder with history of alcohol withdrawal seizures, chronic subdural hematoma, polysubstance IV drug use disorder who presented to the ED after a fall. Patient was intoxicated when this happened. Initial work up in the ED included CBC, BMP, LFTs significant for a Hgb 8.1, total bilirubin 5.4, AST/ALT 65/71. C spine and head CT with subdural hematoma decreased in size. He was admitted to the hospitalist service for further treatment. ABD US performed yesterday which showed distended gallbladder with stones, mild wall thickening and small amount of pericholecystic fluid nad positive sonohgraphic wilkinson sign. CBD dilated up to 15mm. He was started on IV zosyn for suggestion of acute cholecystitis. General surgery was consulted. Patient is a poor historian who denies abd pain, change in stools, fevers. Family at bedside who report he has been c/o abd pain and nausea, poor oral intake for weeks now. <Mary Gomez PA-C Last Filed: 07/01/24 07:50> Review of Systems 2 Constitutional: Constitutional: Denies chills and Denies fever(s) < MIMI Savage Filed: 07/01/24 07:50> Cardiovascular: Cardiovascular: Denies dyspnea <MIMI Savage Filed: 07/01/24 07:50> Respiratory: Respiratory: Denies dyspnea <MIMI Savage Filed: 07/01/24 07:50> Gastrointestinal: Gastrointestinal: Reports as per HPI <MIMI Savage Filed: 07/01/24 07:50> Integumentary/Breasts: Skin/Breast: Denies rash <MIMI Savage Filed: 07/01/24 07:50> PMFSH Past Medical History Medical History: Medical History Alcohol withdrawal seizure Hygroma Chronic subdural hematoma Alcohol use disorder, severe, dependence Opioid use disorder <Mary Gomez PA-C - Last Filed: 07/01/24 07:50> Social History Social History: Social History Household Members: Significant Other Household Members Other:: girlfriend Housing: Apartment Unable to assess alcohol history related to: Unknown Alcohol intake: current Alcohol intake frequency: 3 or more drinks per day Alcohol type: hard liquor Patient Tobacco Use Status: Tobacco use Unknown Tobacco use type: Cigarette Cigarette Packs Per Day: 1 Cigarettes Per Day: 20.0 service: No <Mary Gomez PA-C - Last Filed: 07/01/24 07:50> Meds Allergies/Adverse reactions: Allergies Allergy/AdvReac Type Severity Reaction Status Date / Time No Known Allergies Allergy Verified 06/29/24 23:51 <Mary Gomez PA-C - Last Filed: 07/01/24 07:50> Active Medications: Current Medications Acetaminophen (Acetaminophen 325 Mg Tablet) 650 mg PO Q6H PRN PRN Reason: Pain, Mild 1-3,fever,headache Last Admin: 07/01/24 01:04 Dose: 650 mg Calcium Carbonate (Calcium Carbonate 750 Mg Tab.Chew) 750 mg PO Q4H PRN PRN Reason: Heartburn Piperacillin Sod/Tazobactam (Sod 4.5 gm/ Sodium Chloride) 100 mls @ 200 mls/hr IV Q6H [facility] Last Infusion: 07/01/24 02:30 Dose: Infused Magnesium Hydroxide (Milk Of Magnesia 30 Ml Oral.Susp) 30 ml PO DAILY PRN PRN Reason: Constipation Melatonin (Melatonin 3 Mg Tablet) 6 mg PO BEDTIME PRN PRN Reason: Insomnia Last Admin: 06/30/24 20:23 Dose: 6 mg Nicotine (Nicotine 21 Mg Patch.Td24) 21 mg TRANSDERMA DAILY [facility] Last Admin: 06/30/24 00:59 Dose: 21 mg Ondansetron HCl (Ondansetron Hcl 4 Mg/2 Ml Vial) 4 mg IVPUSH Q8H PRN PRN Reason: Nausea and Vomiting Pantoprazole Sodium (Pantoprazole Sodium 40 Mg/10 Ml Vial) 40 mg IVPUSH BID@0630,1630 [facility] Last Admin: 07/01/24 05:24 Dose: 40 mg Pharmacy Consult (Consult Rx Etoh Phenob Im/Po) 1 each MISCELLANE ONCE PRN; Protocol PRN Reason: Consult order Phenobarbital (Phenobarbital 15 Mg Tablet) 45 mg PO BID [facility]; Protocol Stop: 07/02/24 09:01 Last Admin: 06/30/24 20:10 Dose: 45 mg Phenobarbital (Phenobarbital 15 Mg Tablet) 15 mg PO BID [facility]; Protocol Stop: 07/04/24 09:01 Phenobarbital (Phenobarbital 15 Mg Tablet) 15 mg PO DAILY [facility]; Protocol Stop: 07/06/24 09:01 Sodium Chloride (0.9 % Sodium Chloride Flush 3 Ml Syringe) 3 ml IVFLUSH QSHIFT [facility] Last Admin: 07/01/24 01:05 Dose: 3 ml <MIMI Savage Last Filed: 07/01/24 07:50> Physical Exam 2 Vital Signs: Vital Signs: Last Vital Signs Temp 98.8 F 07/01/24 03:25 Pulse 78 07/01/24 03:25 Resp 18 07/01/24 03:25 BP 133/76 07/01/24 03:25 Pulse Ox 96 07/01/24 03:25 O2 Del Method Room Air 07/01/24 03:25 BMI result Body Mass Index 22.3 <MIMI Savage Last Filed: 07/01/24 07:50> Const: General: comfortable; No acute distress or ill appearing <MIMI Savage Last Filed: 07/01/24 07:50> Resp: Effort & Inspection: normal respiratory effort <MIMI Savage Last Filed: 07/01/24 07:50> GI: Other: mild diffuse tenderness throughout <MIMI Savage Last Filed: 07/01/24 07:50> Palpation (GI): Soft to palpation and no guarding <MIMI Savage Last Filed: 07/01/24 07:50> Percussion: Yes normal to percussion <MIMI Savage Last Filed: 07/01/24 07:50> Skin: General skin exam: no rashes or lesions noted <MIMI Savage Last Filed: 07/01/24 07:50> Neuro: General: moves all extremities <MIMI Savage Last Filed: 07/01/24 07:50> Results Labs Result diagrams: 07/01/24 16:31 06/30/24 16:46 <MIMI Savage Last Filed: 07/01/24 07:50> Labs: Abnormal lab results 06/29/24 06/30/24 06/30/24 Range/Units 23:53 04:22 16:46 Hgb 7.8 L (14.0-18.0) g/dl Hct 21.7 L (42.0-52.0) % BUN 18 H (9-16) mg/dL Random Glucose 118 H (60-115) mg/dL Iron 223 H (45-160) mcg/dL % Saturation 90 H (15-50) % Ferritin 2683 H (20-250) ng/mL Crossmatch See Detail Short CBC 06/30/24 Range/Units 16:46 Hgb 7.8 L (14.0-18.0) g/dl Hct 21.7 L (42.0-52.0) % BMP 06/30/24 16:46 Sodium 140 Potassium 3.8 D Chloride 102 Carbon Dioxide 24 BUN 18 H Creatinine 0.78 Calcium 8.8 D All other labs normal. <MIMI Savage Last Filed: 07/01/24 07:50> Imaging Abdominal ultrasound report/results: report reviewed and image reviewed <MIMI Savage Last Filed: 07/01/24 07:50> Assessment and Plan (1) Elevated LFTs: Status: Acute <MIMI Savage Last Filed: 07/01/24 07:50> Known EtOH abuse Has diffuse tenderness on exam No guarding or rebound LFTs markedly abnormal Significant anemia No obvious active GI bleeding Suggestive of common bile duct obstruction Likely to have liver disease as well MRCP ordered According to significant other at bedside - patient has been drinking heavily and has done so for many years Seems to have poor level of function as well Would treat with antibiotics for now for suspicion of acute cholecystitis May need ERCP Patient was multiple medical problems and appears to present with significant perioperative risks Seen and examined independently <Dustin Zelaya MD - Last Filed: 07/01/24 18:53> 58-year-old male with PMH of alcohol use disorder with history of alcohol withdrawal seizures, chronic subdural hematoma, polysubstance IV drug use disorder admitted after a fall found to have significant hyperbilirubinemia with CBD measuring 15mm on imaging. He is currently not complaining of any pain and has mild tenderness of his abdomen throughout. He has no leukocytosis. Unclear if the mild wall thickening on US suggests acute cholecystitis. GI following. Agree with MRCP to further assess the CBD. Further plan dependent on imaging and patient course. <Mary Gomez PA-C - Last Filed: 07/01/24 07:50> Procedures Date of Service Date of Service: 07/01/24 <Mary Gomez PA-C - Last Filed: 07/01/24 07:50> 07/01/24 <Dustin Zelaya MD - Last Filed: 07/01/24 18:53>
[2024-07-01 06:36] LABS: MANUAL DIFF FLAG NO
[2024-07-01 06:39] LABS: Basophils Percent Auto 0.4 % (0-2); Eosinophils Absolute Auto 0.1 X10*3/uL (0.0-0.4); Eosinophils Percent Auto 1.1 % (0-4); Imm Gran Abs Auto 0.04 X10*3/uL (0.00-0.03); Imm Gran Pct Auto 0.7 % (0.0-0.4); Lymphocytes Absolute Auto 1.8 X10*3/uL (1.2-4.9); Lymphocytes Percent Auto 32.1 % (20-40); Mean Corpuscular HGB Conc 35.9 g/dl (31.0-36.0); Mean Corpuscular Hemoglobin 30.3 pg (27.0-33.0); Mean Corpuscular Volume 84.4 fL (80.0-98.0); Mean Platelet Volume 10.7 fL (9.4-12.4); Monocytes Absolute Auto 0.7 X10*3/uL (0.1-1.2); Neutrophils Absolute Auto 2.9 x10*3/uL (2.0-8.3); Neutrophils Percent Auto 52.7 % (45-73); Platelet Count 160 X10*3/uL (160-400); Red Blood Count 2.31 X10*6/uL (4.60-5.80); Red Cell Distribution Width 14.5 % (11.0-16.0); White Blood Count 5.5 X10*3/uL (4.8-10.8)
[2024-07-01 06:45] LABS: Prothrombin Time 11.2 SEC (10.9-12.4)
[2024-07-01 07:00] LABS: Alanine Aminotransferase 43 U/L (0-40); Alkaline Phosphatase 176 U/L (39-117); Aspartate Amino Transferase 89 U/L (5-37); Bilirubin Direct 2.9 mg/dL (0.0-0.5); Bilirubin Total 4.2 mg/dL (0.0-1.0); Total Protein 6.2 g/dL (6.5-8.0)
[2024-07-01 07:30] LABS: Hematocrit 19.5 % (42.0-52.0)
[2024-07-01 08:19] LABS: HBc Num1 0.31 S/CO (0.00-0.79); HBsAGNum1 0.37 S/CO (0.00-0.99); Hepatitis B Core Antibody Nonreactive (Nonreactive); Hepatitis B Surface Antigen Negative (Negative); ~HepC Num1 16.03 S/CO (0.00-0.79); ~Hepatitis B Surface Antibody NONREACTIVE (Nonreactive); ~Hepatitis C Antibody Reactive (Nonreactive)
[2024-07-01] MEDS: PHENobarbitaL 15 MG TABLET 45 MG PO ×2 (08:48→21:16)
[2024-07-01] MEDS: Nicotine 21 MG PATCH.TD24 TRANSDERMA ×2 (08:48→21:18)
--- NOTE | 2024-07-01 11:04 | MHC.CM.PN ---
EMR REVIEWED, PT W/ETOH WITHDRAWAL REMAINS ON PHENOBARB PROTOCOL, IV ABX AND PER SURGICAL NOTES PLAN FOR MRCP, CM WILL CONT TO FOLLOW DC NEEDS.
--- NOTE | 2024-07-01 16:10 | P.PNIM_ITS ---
Subjective Subjective Date of Service: 07/01/24 Interval History: anemia Review of Systems Patient still has tremors, Right upper quadrant pain Elevated LFTs Review of Systems: Yes all other systems are reviewed and are negative Physical Exam 2 Vital Signs: Vital Signs: Last Vital Signs Temp 98.9 F 07/01/24 15:06 Pulse 75 07/01/24 15:06 Resp 18 07/01/24 15:06 BP 134/80 07/01/24 15:06 Pulse Ox 99 07/01/24 15:06 O2 Del Method Room Air 07/01/24 15:06 BMI result Body Mass Index 22.3 Appearance: Alert.? Oriented X3.? cvs: rrr, [id number]. res: air entry fair , no rales or wheezing. abd: ruq pain ,nt, bs present. ext pulses present , no cyanosis. neuro: axo3 , nonfocal. Objective Data Active Medications Acetaminophen (Acetaminophen 325 Mg Tablet) 650 mg PO Q6H PRN PRN Reason: Pain, Mild 1-3,fever,headache Last Admin: 07/01/24 01:04 Dose: 650 mg Documented By: BERNARD Calcium Carbonate (Calcium Carbonate 750 Mg Tab.Chew) 750 mg PO Q4H PRN PRN Reason: Heartburn Piperacillin Sod/Tazobactam (Sod 4.5 gm/ Sodium Chloride) 100 mls @ 200 mls/hr IV Q6H [facility] Last Admin: 07/01/24 15:42 Dose: 200 mls/hr Documented By: PEDRO LUIS Magnesium Hydroxide (Milk Of Magnesia 30 Ml Oral.Susp) 30 ml PO DAILY PRN PRN Reason: Constipation Melatonin (Melatonin 3 Mg Tablet) 6 mg PO BEDTIME PRN PRN Reason: Insomnia Last Admin: 06/30/24 20:23 Dose: 6 mg Documented By: [place] Nicotine (Nicotine 21 Mg Patch.Td24) 21 mg TRANSDERMA DAILY [facility] Last Admin: 07/01/24 08:48 Dose: 21 mg Documented By: PEDRO LUIS Ondansetron HCl (Ondansetron Hcl 4 Mg/2 Ml Vial) 4 mg IVPUSH Q8H PRN PRN Reason: Nausea and Vomiting Pantoprazole Sodium (Pantoprazole Sodium 40 Mg/10 Ml Vial) 40 mg IVPUSH BID@0630,1630 [facility] Last Admin: 07/01/24 05:24 Dose: 40 mg Documented By: BERNARD Pharmacy Consult (Consult Rx Etoh Phenob Im/Po) 1 each MISCELLANE ONCE PRN; Protocol PRN Reason: Consult order Phenobarbital (Phenobarbital 15 Mg Tablet) 45 mg PO BID [facility]; Protocol Stop: 07/02/24 09:01 Last Admin: 07/01/24 08:48 Dose: 45 mg Documented By: PEDRO LUIS Phenobarbital (Phenobarbital 15 Mg Tablet) 15 mg PO BID [facility]; Protocol Stop: 07/04/24 09:01 Phenobarbital (Phenobarbital 15 Mg Tablet) 15 mg PO DAILY [facility]; Protocol Stop: 07/06/24 09:01 Sodium Chloride (0.9 % Sodium Chloride Flush 3 Ml Syringe) 3 ml IVFLUSH QSHIFT [facility] Last Admin: 07/01/24 01:05 Dose: 3 ml Documented By: BERNARD Labs 07/01/24 06:28 06/30/24 16:46 Labs: Laboratory Results - last 24 hr 06/29/24 06/30/24 07/01/24 23:53 16:46 06:28 MCV 84.4 MCH 30.3 MCHC 35.9 RDW 14.5 Plt Count 160 MPV 10.7 Immature Gran % (Auto) 0.7 H Neut % (Auto) 52.7 Lymph % (Auto) 32.1 [place] % (Auto) 13.0 H Eos % (Auto) 1.1 Baso % (Auto) 0.4 Lymph # (Auto) 1.8 [place] # (Auto) 0.7 Eos # (Auto) 0.1 Baso # (Auto) 0.0 Abs Immat Gran (auto) 0.04 H Absolute Neuts (auto) 2.9 Absolute Nucleated RBC 0.000 Nucleated RBC % (auto) 0.0 Smear Path Review SEE NOTE PT 11.2 INR 1.0 Anion Gap 18 Estim Creat Clear Calc 104.2 Estimated GFR > 60 Random Glucose 118 H Calcium 8.8 D Total Bilirubin 4.2 H Direct Bilirubin 2.9 H AST 89 H ALT 43 H Alkaline Phosphatase 176 H Total Protein 6.2 L Albumin 3.0 L Hep Bs Antigen Negative Hep Bs Antibody NONREACTIVE Hep B Core Total Ab Nonreactive Hepatitis C Ab (EIA) Reactive H Blood Type AB Positive Antibody Screen NEGATIVE Crossmatch See Detail Assessment and Plan (1) Hypomagnesemia: Status: Acute (2) Elevated LFTs: Status: Acute Assessment and Plan: 58-year-old male with pertinent history of alcohol use disorder with history of alcohol withdrawal seizures, tobacco use disorder, chronic subdural hematoma, polysubstance IV drug use disorder who presents to the emergency department after a fall. Alcohol use disorder: Initiated on phenobarb protocol . Monitor CIWA. Consulted Addiction Team. Continue thiamine Fall in the setting of above possble acute cholecyctsitis: LFTs somewhat improving but still has right upper quadrant pain Continue Zosyn, GI evaluation noted-added MRCP, elevated Iron studies, normal B12 and Folate, and no signs of GI blood loss. Surgery evaluation Normocytic anemia: denies melena or hematochezia. Stool occult negative. given 1prbc clear liquid diet Ordered IV Protonix. moniter h/h h/hflacutaing in 7 range gi -currently recommended monitor H&H, continue PPI and currently no need for EGD since the patient is occult blood negative, iron studies Hypomagnesemia/hypokalemia due to alcohol use: Repleted and resolved. Meds adjusted History of polysubstance use disorder: On Suboxone. UDS pending. Addiction Team as above Subdural hematoma: Chronic and stable Tobacco use disorder: Ordered nicotine patch DVT prophylaxis: Mechanical. Defer Lovenox in the setting of subdural hematoma Quality Stroke Does the patient have a stroke diagnosis?: No VTE Prior VTE?: No VTE Risk Level:: Medical - moderate - high VTE Device Contraindication: N/A - Device Ordered VTE Drug Contraindication: Treatment Not Indicated
[2024-07-01 16:45] LABS: Hematocrit 22.7 % (42.0-52.0); Hemoglobin 8.1 g/dl (14.0-18.0)
[2024-07-01] MEDS: Melatonin 3 MG TABLET 6 MG PO (21:18)
--- NOTE | 2024-07-01 23:35 | PM.EVENT ---
Event Note Date of Service: 07/01/24 Event Note: GI F/U-Course noted. His LFT's are improving but the MRCP this evening describes a distal CBD stone. Therefore, he will need an ERCP. He was seen by surgery consult this AM and may need an eventual CCY depending upon his clinical course. I will review with the patient and see if we can get an ERCP scheduled for 07/02. Thanks Time Spent With Patient Time: Total time managing care of this patient today ____ minutes.
--- NOTE | 2024-07-01 23:42 | MHC.SHP ---
Pre-Procedural Eval Section A - 24 Hr Update-Section A only Date of Service: 07/02/24 The patient is an INPATIENT: Yes The patient has been examined within 24 hours of the surgical procedure. The History & Physical has been completed within 30 days and I have reviewed it.: Yes Section B - Complete if H&P > 30 days Chief Complaint: Alcohol Withdrawal Allergies: Allergies Allergy/AdvReac Type Severity Reaction Status Date / Time No Known Allergies Allergy Verified 06/29/24 23:51 Plan I have reviewed the history and physical and performed a pertinent physical examination on my patient. No changes have occurred unless specified. Time Spent With Patient Time: Total time managing care of this patient today ____ minutes.
[2024-07-02] VITALS (11 sets, daily range): BP systolic 108–140; BP diastolic 63–85; PULSE 60–90; RESP 14–18; TEMP 36.1–37.7; O2SAT 94–100
[2024-07-02] MEDS: Piperacillin Sodium/Tazobactam 4.5 GM in 0.9 % Sodium Chloride 100 ML IV ×4 (01:20→23:35)
[2024-07-02] MEDS: Acetaminophen 325 MG TABLET 650 MG PO (01:46)
[2024-07-02 03:05] LABS: CDiff Gene PCR NEGATIVE (Negative)
[2024-07-02] MEDS: Pantoprazole Sodium 40 MG/10 ML VIAL IVPUSH (06:00)
[2024-07-02 08:12] LABS: MANUAL DIFF FLAG NO
[2024-07-02 08:18] LABS: Basophils Percent Auto 0.5 % (0-2); Eosinophils Absolute Auto 0.1 X10*3/uL (0.0-0.4); Eosinophils Percent Auto 1.1 % (0-4); Hematocrit 24.7 % (42.0-52.0); Hemoglobin 8.7 g/dl (14.0-18.0); Imm Gran Abs Auto 0.06 X10*3/uL (0.00-0.03); Imm Gran Pct Auto 1.1 % (0.0-0.4); Lymphocytes Absolute Auto 1.9 X10*3/uL (1.2-4.9); Lymphocytes Percent Auto 34.3 % (20-40); Mean Corpuscular HGB Conc 35.2 g/dl (31.0-36.0); Mean Corpuscular Hemoglobin 30.3 pg (27.0-33.0); Mean Corpuscular Volume 86.1 fL (80.0-98.0); Mean Platelet Volume 11.6 fL (9.4-12.4); Monocytes Absolute Auto 0.7 X10*3/uL (0.1-1.2); Monocytes Percent Auto 12.6 % (2-11); Neutrophils Absolute Auto 2.9 x10*3/uL (2.0-8.3); Neutrophils Percent Auto 50.4 % (45-73); Platelet Count 163 X10*3/uL (160-400); Red Blood Count 2.87 X10*6/uL (4.60-5.80); Red Cell Distribution Width 14.2 % (11.0-16.0); White Blood Count 5.7 X10*3/uL (4.8-10.8)
[2024-07-02 08:22] LABS: ~Hepatitis A Antibody IgM Nonreactive (Nonreactive)
[2024-07-02 08:36] LABS: Alanine Aminotransferase 41 U/L (0-40); Albumin Level 2.9 g/dL (3.5-5.0); Alkaline Phosphatase 149 U/L (39-117); Aspartate Amino Transferase 95 U/L (5-37); Bilirubin Direct 2.3 mg/dL (0.0-0.5); Bilirubin Total 3.1 mg/dL (0.0-1.0); Blood Urea Nitrogen 12 mg/dL (9-16); Calcium 8.2 mg/dL (8.4-10.2); Creatinine Clr Calc Pharmacy 103.7; Estimated Glomerular Filt Rate > 60; Glucose Fasting 96 mg/dL (60-99); Total Protein 6.1 g/dL (6.5-8.0)
[2024-07-02 08:47] LABS: Anion Gap 13 (12-20); Carbon Dioxide 29 mmol/L (22-29); Chloride 100 mmol/L (96-108); Potassium 2.9 mmol/L (3.3-5.1); Sodium 139 mmol/L (135-145)
--- NOTE | 2024-07-02 09:06 | P.PNGS_ITS ---
Subjective Subjective Date of Service: 07/02/24 Interval history: As per , he slept well Did not complain of abdominal pain No suggestion of GI bleed Physical Exam 2 Vital Signs: Vital Signs: Last Vital Signs Temp 98.7 F 07/02/24 07:49 Pulse 71 07/02/24 07:49 Resp 16 07/02/24 07:49 BP 140/84 H 07/02/24 07:49 Pulse Ox 95 07/02/24 07:49 O2 Del Method Room Air 07/02/24 07:49 BMI result Body Mass Index 22.3 Const: General: comfortable and no acute distress Resp: Effort & Inspection: normal respiratory effort Cardio: Rate: regular rate GI: Palpation (GI): Soft to palpation, not firm, Tenderness to palpation present (GI) (Some tenderness on the abdomen diffusely) and no guarding Objective Data Active Medications Acetaminophen (Acetaminophen 325 Mg Tablet) 650 mg PO Q6H PRN PRN Reason: Pain, Mild 1-3,fever,headache Last Admin: 07/02/24 01:46 Dose: 650 mg Documented By: NEHEMIAS Calcium Carbonate (Calcium Carbonate 750 Mg Tab.Chew) 750 mg PO Q4H PRN PRN Reason: Heartburn Piperacillin Sod/Tazobactam (Sod 4.5 gm/ Sodium Chloride) 100 mls @ 200 mls/hr IV Q6H [facility] Last Infusion: 07/02/24 02:00 Dose: Infused Documented By: NEHEMIAS Magnesium Hydroxide (Milk Of Magnesia 30 Ml Oral.Susp) 30 ml PO DAILY PRN PRN Reason: Constipation Melatonin (Melatonin 3 Mg Tablet) 6 mg PO BEDTIME PRN PRN Reason: Insomnia Last Admin: 07/01/24 21:18 Dose: 6 mg Documented By: NEHEMIAS Nicotine (Nicotine 21 Mg Patch.Td24) 21 mg TRANSDERMA DAILY [facility] Last Admin: 07/01/24 21:18 Dose: 21 mg Documented By: NEHEMIAS Ondansetron HCl (Ondansetron Hcl 4 Mg/2 Ml Vial) 4 mg IVPUSH Q8H PRN PRN Reason: Nausea and Vomiting Pantoprazole Sodium (Pantoprazole Sodium 40 Mg/10 Ml Vial) 40 mg IVPUSH BID@0630,1630 [facility] Last Admin: 07/02/24 06:00 Dose: 40 mg Documented By: NEHEMIAS Pharmacy Consult (Consult Rx Etoh Phenob Im/Po) 1 each MISCELLANE ONCE PRN; Protocol PRN Reason: Consult order Phenobarbital (Phenobarbital 15 Mg Tablet) 15 mg PO BID [facility]; Protocol Stop: 07/04/24 09:01 Phenobarbital (Phenobarbital 15 Mg Tablet) 15 mg PO DAILY [facility]; Protocol Stop: 07/06/24 09:01 Sodium Chloride (0.9 % Sodium Chloride Flush 3 Ml Syringe) 3 ml IVFLUSH QSHIFT [facility] Last Admin: 07/01/24 21:16 Dose: 3 ml Documented By: NEHEMIAS Labs 07/02/24 07:16 07/02/24 07:16 Labs: Laboratory Results - last 24 hr 06/29/24 07/01/24 07/02/24 23:53 06:28 01:55 MCV MCH MCHC RDW Plt Count MPV Immature Gran % (Auto) Neut % (Auto) Lymph % (Auto) [place] % (Auto) Eos % (Auto) Baso % (Auto) Lymph # (Auto) [place] # (Auto) Eos # (Auto) Baso # (Auto) Abs Immat Gran (auto) Absolute Neuts (auto) Absolute Nucleated RBC Nucleated RBC % (auto) Smear Path Review SEE NOTE Anion Gap Estim Creat Clear Calc Estimated GFR Fasting Glucose Calcium Total Bilirubin Direct Bilirubin AST ALT Alkaline Phosphatase Total Protein Albumin C. difficile Tox B Gene NEGATIVE Hepatitis A IgM Ab Nonreactive Blood Type AB Positive Antibody Screen NEGATIVE Crossmatch See Detail 07/02/24 07:16 MCV 86.1 MCH 30.3 MCHC 35.2 RDW 14.2 Plt Count 163 MPV 11.6 Immature Gran % (Auto) 1.1 H Neut % (Auto) 50.4 Lymph % (Auto) 34.3 [place] % (Auto) 12.6 H Eos % (Auto) 1.1 Baso % (Auto) 0.5 Lymph # (Auto) 1.9 [place] # (Auto) 0.7 Eos # (Auto) 0.1 Baso # (Auto) 0.0 Abs Immat Gran (auto) 0.06 H Absolute Neuts (auto) 2.9 Absolute Nucleated RBC 0.000 Nucleated RBC % (auto) 0.0 Smear Path Review Anion Gap 13 Estim Creat Clear Calc 103.7 Estimated GFR > 60 Fasting Glucose 96 Calcium 8.2 L D Total Bilirubin 3.1 H Direct Bilirubin 2.3 H AST 95 H ALT 41 H Alkaline Phosphatase 149 H Total Protein 6.1 L Albumin 2.9 L C. difficile Tox B Gene Hepatitis A IgM Ab Blood Type Antibody Screen Crossmatch Procedures Date of Service Date of Service: 07/02/24 Progress Note: A&P Assessment and plan (1) Elevated LFTs: Status: Acute Assessment and Plan: With choledocholithiasis MRCP shows common bile duct stones Likely ERCP with GI Abdomen is soft and benign Clinically not cholecystitis Patient does not seem to be a good surgical candidate - heavy alcohol use as per Likely to have liver disease as well Time Spent With Patient Time: Total time managing care of this patient today ____ minutes. Quality Stroke Does the patient have a stroke diagnosis?: No VTE Prior VTE?: No VTE Risk Level:: Medical - moderate - high VTE Device Contraindication: N/A - Device Ordered VTE Drug Contraindication: Treatment Not Indicated
[2024-07-02] MEDS: PHENobarbitaL 15 MG TABLET 45 MG PO (09:27)
[2024-07-02] MEDS: 0.9 % Sodium Chloride Flush 3 ML SYRINGE IVFLUSH ×3 (09:30→21:52)
[2024-07-02] MEDS: Nicotine 21 MG PATCH.TD24 TRANSDERMA (09:36)
--- NOTE | 2024-07-02 10:04 | HO.ADDICTCON ---
History of Present Illness Date of Service: 07/02/2024 Chief Complaint: Alcohol Withdrawal Reason for Consult: AUD Sources of Information: patient interviewed and chart reviewed HPI Narrative: Patient is a 58 year old male with history of OUD and AUD, Diagnostics Vital Signs (24Hr): Vital Signs - 24 hr 07/01/24 11:05 07/01/24 11:54 07/01/24 11:55 Temperature 97.3 F 97.3 F 97.3 F Pulse Rate 74 74 74 Respiratory Rate 18 18 16 Blood Pressure 126/73 126/73 126/73 Pulse Oximetry 99 Oxygen Delivery Method Room Air 07/01/24 12:09 07/01/24 14:17 07/01/24 15:06 Temperature 99.2 F 98.5 F 98.9 F Pulse Rate 80 80 75 Respiratory Rate 16 18 18 Blood Pressure 126/72 137/80 134/80 Pulse Oximetry 99 Oxygen Delivery Method Room Air 07/01/24 16:38 07/01/24 16:58 07/01/24 19:09 Temperature 98.9 F 98.8 F 98.7 F Pulse Rate 80 75 84 Respiratory Rate 118 H 16 18 Blood Pressure 134/76 125/72 114/68 Pulse Oximetry Oxygen Delivery Method 07/01/24 19:21 07/01/24 23:33 07/02/24 03:11 Temperature 99.3 F 98.3 F 97.4 F Pulse Rate 78 84 77 Respiratory Rate 18 18 18 Blood Pressure 130/74 116/68 108/63 Pulse Oximetry 98 99 97 Oxygen Delivery Method Room Air Room Air Room Air 07/02/24 07:49 Temperature 98.7 F Pulse Rate 71 Respiratory Rate 16 Blood Pressure 140/84 H Pulse Oximetry 95 Oxygen Delivery Method Room Air BMI result Body Mass Index 22.3 Labs 07/02/24 07:16 07/02/24 07:16 Labs: Laboratory Results - last 48 hr 06/29/24 06/30/24 06/30/24 23:53 09:32 16:46 WBC RBC Hgb 7.8 L Hct 21.7 L MCV MCH MCHC RDW Plt Count MPV Immature Gran % (Auto) Neut % (Auto) Lymph % (Auto) [place] % (Auto) Eos % (Auto) Baso % (Auto) Lymph # (Auto) [place] # (Auto) Eos # (Auto) Baso # (Auto) Abs Immat Gran (auto) Absolute Neuts (auto) Absolute Nucleated RBC Nucleated RBC % (auto) Smear Path Review PT INR Sodium 140 Potassium 3.8 D Chloride 102 Carbon Dioxide 24 Anion Gap 18 BUN 18 H Creatinine 0.78 Estim Creat Clear Calc 104.2 Estimated GFR > 60 Random Glucose 118 H Fasting Glucose Calcium 8.8 D Total Bilirubin Direct Bilirubin AST ALT Alkaline Phosphatase Total Protein Albumin Vitamin B12 352 Folate 4.7 C. difficile Tox B Gene Hepatitis A IgM Ab Hep Bs Antigen Hep Bs Antibody Hep B Core Total Ab Hepatitis C Ab (EIA) Blood Type AB Positive Antibody Screen NEGATIVE Crossmatch See Detail 07/01/24 07/01/24 07/02/24 06:28 16:31 01:55 WBC 5.5 RBC 2.31 L Hgb 7.0 L* 8.1 L Hct 19.5 L* 22.7 L MCV 84.4 MCH 30.3 MCHC 35.9 RDW 14.5 Plt Count 160 MPV 10.7 Immature Gran % (Auto) 0.7 H Neut % (Auto) 52.7 Lymph % (Auto) 32.1 [place] % (Auto) 13.0 H Eos % (Auto) 1.1 Baso % (Auto) 0.4 Lymph # (Auto) 1.8 [place] # (Auto) 0.7 Eos # (Auto) 0.1 Baso # (Auto) 0.0 Abs Immat Gran (auto) 0.04 H Absolute Neuts (auto) 2.9 Absolute Nucleated RBC 0.000 Nucleated RBC % (auto) 0.0 Smear Path Review SEE NOTE PT 11.2 INR 1.0 Sodium Potassium Chloride Carbon Dioxide Anion Gap BUN Creatinine Estim Creat Clear Calc Estimated GFR Random Glucose Fasting Glucose Calcium Total Bilirubin 4.2 H Direct Bilirubin 2.9 H AST 89 H ALT 43 H Alkaline Phosphatase 176 H Total Protein 6.2 L Albumin 3.0 L Vitamin B12 Folate C. difficile Tox B Gene NEGATIVE Hepatitis A IgM Ab Nonreactive Hep Bs Antigen Negative Hep Bs Antibody NONREACTIVE Hep B Core Total Ab Nonreactive Hepatitis C Ab (EIA) Reactive H Blood Type Antibody Screen Crossmatch 07/02/24 07:16 WBC 5.7 RBC 2.87 L D Hgb 8.7 L Hct 24.7 L MCV 86.1 MCH 30.3 MCHC 35.2 RDW 14.2 Plt Count 163 MPV 11.6 Immature Gran % (Auto) 1.1 H Neut % (Auto) 50.4 Lymph % (Auto) 34.3 [place] % (Auto) 12.6 H Eos % (Auto) 1.1 Baso % (Auto) 0.5 Lymph # (Auto) 1.9 [place] # (Auto) 0.7 Eos # (Auto) 0.1 Baso # (Auto) 0.0 Abs Immat Gran (auto) 0.06 H Absolute Neuts (auto) 2.9 Absolute Nucleated RBC 0.000 Nucleated RBC % (auto) 0.0 Smear Path Review PT INR Sodium 139 Potassium 2.9 L* D Chloride 100 Carbon Dioxide 29 Anion Gap 13 BUN 12 Creatinine 0.81 Estim Creat Clear Calc 103.7 Estimated GFR > 60 Random Glucose Fasting Glucose 96 Calcium 8.2 L D Total Bilirubin 3.1 H Direct Bilirubin 2.3 H AST 95 H ALT 41 H Alkaline Phosphatase 149 H Total Protein 6.1 L Albumin 2.9 L Vitamin B12 Folate C. difficile Tox B Gene Hepatitis A IgM Ab Hep Bs Antigen Hep Bs Antibody Hep B Core Total Ab Hepatitis C Ab (EIA) Blood Type Antibody Screen Crossmatch Imaging Radiology Impressions: ITS Impressions Abdomen Ultrasound 06/30/24 10:22 IMPRESSION: 1. Findings highly suggestive of acute cholecystitis. There are gallbladder stones, echogenic bile, mild wall thickening, small amounts of pericholecystic fluid and a positive sonographic Wood sign. 2. Mild hepatomegaly with diffusely increased hepatic echogenicity suggestive of steatosis. 3. There is mild intra and extrahepatic biliary dilatation, with the common bile duct measuring up to 15 mm proximally. Common duct obstruction is not excluded. 4. Mild caliectasis of the right kidney. Findings communicated to Dr. Lucio via secure text at 11:15 AM, 06/30/2024. Electronically signed by: Ruben Dutta MD 06/30/2024 11:15 AM EDT Medications Medications Current Medications Acetaminophen (Acetaminophen 325 Mg Tablet) 650 mg PO Q6H PRN PRN Reason: Pain, Mild 1-3,fever,headache Last Admin: 07/02/24 01:46 Dose: 650 mg Calcium Carbonate (Calcium Carbonate 750 Mg Tab.Chew) 750 mg PO Q4H PRN PRN Reason: Heartburn Piperacillin Sod/Tazobactam (Sod 4.5 gm/ Sodium Chloride) 100 mls @ 200 mls/hr IV Q6H [facility] Last Admin: 07/02/24 09:26 Dose: 200 mls/hr Magnesium Hydroxide (Milk Of Magnesia 30 Ml Oral.Susp) 30 ml PO DAILY PRN PRN Reason: Constipation Melatonin (Melatonin 3 Mg Tablet) 6 mg PO BEDTIME PRN PRN Reason: Insomnia Last Admin: 07/01/24 21:18 Dose: 6 mg Nicotine (Nicotine 21 Mg Patch.Td24) 21 mg TRANSDERMA DAILY [facility] Last Admin: 07/02/24 09:36 Dose: 21 mg Ondansetron HCl (Ondansetron Hcl 4 Mg/2 Ml Vial) 4 mg IVPUSH Q8H PRN PRN Reason: Nausea and Vomiting Pantoprazole Sodium (Pantoprazole Sodium 40 Mg/10 Ml Vial) 40 mg IVPUSH BID@0630,1630 [facility] Last Admin: 07/02/24 06:00 Dose: 40 mg Pharmacy Consult (Consult Rx Etoh Phenob Im/Po) 1 each MISCELLANE ONCE PRN; Protocol PRN Reason: Consult order Phenobarbital (Phenobarbital 15 Mg Tablet) 15 mg PO BID [facility]; Protocol Stop: 07/04/24 09:01 Phenobarbital (Phenobarbital 15 Mg Tablet) 15 mg PO DAILY [facility]; Protocol Stop: 07/06/24 09:01 Sodium Chloride (0.9 % Sodium Chloride Flush 3 Ml Syringe) 3 ml IVFLUSH QSHIFT [facility] Last Admin: 07/02/24 09:30 Dose: 3 ml Allergies Allergies Allergy/AdvReac Type Severity Reaction Status Date / Time No Known Allergies Allergy Verified 06/29/24 23:51 Assessment & Plan Assessment & Plan (1) Alcohol use disorder: Status: Acute Code(s): F10.90 - Alcohol use, unspecified, uncomplicated Assessment and Plan: pheno taper thiamine declines MAUREEN (2) Opioid use disorder: Status: Acute Code(s): F11.90 - Opioid use, unspecified, uncomplicated Assessment and Plan: possble mild withdrawal suboxone 2mg --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 PMFSH Past Medical History Medical History (Updated 07/02/24 @ 10:04 by Amanda Lamb CNP) Opioid use disorder Alcohol withdrawal seizure Hygroma Chronic subdural hematoma Alcohol use disorder, severe, dependence Social History Social History Household Members: Significant Other Household Members Other:: self Housing: Apartment Unable to assess alcohol history related to: Unknown Alcohol intake: current Alcohol intake frequency: 3 or more drinks per day Alcohol type: hard liquor Patient Tobacco Use Status: Current everyday Tobacco user Tobacco use type: Cigarette Cigarette Packs Per Day: 1 Cigarettes Per Day: 5 service: No
[2024-07-02] MEDS: Potassium Chloride/H20 10 MEQ/100 ML PIGGYBACK 100 MEQ IV ×4 (10:33→14:28)
[2024-07-02] MEDS: Buprenorphine/Naloxone 2/0.5mg FILM 1 FILM SUBLINGUAL (11:36)
--- NOTE | 2024-07-02 14:47 | P.CONAN_ITS ---
HPI - Anesthesia Eval Consult details Narrative: 58 yo M presenting for ERCP. On Suboxone. Hypokalemic 2.9 - currently being repleted. PMFSH Active Problems Active Problems: All Active Problems Opioid use disorder (Acute) Hypomagnesemia (Acute) Anemia (Acute) Elevated LFTs (Acute) Alcohol use disorder (Acute) Past Medical History Medical History (Updated 07/02/24 @ 10:04 by Amanda Lamb CNP) Opioid use disorder Alcohol withdrawal seizure Hygroma Chronic subdural hematoma Alcohol use disorder, severe, dependence Family History Family history of problems with anesthesia: No Surgical History History of Problems with Anesthesia: No Social History Social History Household Members: Significant Other Household Members Other:: self Housing: Apartment Unable to assess alcohol history related to: Unknown Alcohol intake: current Alcohol intake frequency: 3 or more drinks per day Alcohol type: hard liquor Patient Tobacco Use Status: Current everyday Tobacco user Tobacco use type: Cigarette Cigarette Packs Per Day: 1 Cigarettes Per Day: 5 service: No Meds Allergies Allergy/AdvReac Type Severity Reaction Status Date / Time No Known Allergies Allergy Verified 06/29/24 23:51 Active Medications: Current Medications Acetaminophen (Acetaminophen 325 Mg Tablet) 650 mg PO Q6H PRN PRN Reason: Pain, Mild 1-3,fever,headache Last Admin: 07/02/24 01:46 Dose: 650 mg Buprenorphine/Naloxone (Buprenorphine/Naloxone 2/0.5mg Film) 1 film SUBLINGUAL DAILY [facility] Last Admin: 07/02/24 11:36 Dose: 1 film Calcium Carbonate (Calcium Carbonate 750 Mg Tab.Chew) 750 mg PO Q4H PRN PRN Reason: Heartburn Piperacillin Sod/Tazobactam (Sod 4.5 gm/ Sodium Chloride) 100 mls @ 200 mls/hr IV Q6H [facility] Last Admin: 07/02/24 14:04 Dose: Not Given Magnesium Hydroxide (Milk Of Magnesia 30 Ml Oral.Susp) 30 ml PO DAILY PRN PRN Reason: Constipation Melatonin (Melatonin 3 Mg Tablet) 6 mg PO BEDTIME PRN PRN Reason: Insomnia Last Admin: 07/01/24 21:18 Dose: 6 mg Nicotine (Nicotine 21 Mg Patch.Td24) 21 mg TRANSDERMA DAILY [facility] Last Admin: 07/02/24 09:36 Dose: 21 mg Ondansetron HCl (Ondansetron Hcl 4 Mg/2 Ml Vial) 4 mg IVPUSH Q8H PRN PRN Reason: Nausea and Vomiting Pantoprazole Sodium (Pantoprazole Sodium 40 Mg/10 Ml Vial) 40 mg IVPUSH BID@0630,1630 [facility] Last Admin: 07/02/24 06:00 Dose: 40 mg Pharmacy Consult (Consult Rx Etoh Phenob Im/Po) 1 each MISCELLANE ONCE PRN; Protocol PRN Reason: Consult order Phenobarbital (Phenobarbital 15 Mg Tablet) 15 mg PO BID [facility]; Protocol Stop: 07/04/24 09:01 Phenobarbital (Phenobarbital 15 Mg Tablet) 15 mg PO DAILY [facility]; Protocol Stop: 07/06/24 09:01 Sodium Chloride (0.9 % Sodium Chloride Flush 3 Ml Syringe) 3 ml IVFLUSH QSHIFT [facility] Last Admin: 07/02/24 09:30 Dose: 3 ml Exam Exam Date and Time: 07/02/24 1445 Height,Weight and Vital Signs: Height 6 ft Weight 74.7 kg Last Vital Signs Temp 99.7 F 07/02/24 14:08 Pulse 75 07/02/24 14:08 Resp 18 07/02/24 14:08 BP 122/84 07/02/24 14:08 Pulse Ox 94 07/02/24 14:08 O2 Del Method Room Air 07/02/24 14:08 Pertinent Lab Results Pertinent Lab Results: Laboratory Tests 06/29/24 06/29/24 06/30/24 22:09 23:53 01:04 WBC 6.2 RBC 2.64 L D Hgb 8.1 L D Hct 22.5 L D MCV 85.2 MCH 30.7 MCHC 36.0 RDW 14.2 Plt Count 198 MPV 11.0 Immature Gran % (Auto) 0.5 H Neut % (Auto) 44.3 L Lymph % (Auto) 39.5 [place] % (Auto) 14.6 H Eos % (Auto) 0.3 Baso % (Auto) 0.8 Lymph # (Auto) 2.4 [place] # (Auto) 0.9 Eos # (Auto) 0.0 Baso # (Auto) 0.1 Abs Immat Gran (auto) 0.03 Absolute Neuts (auto) 2.7 Absolute Nucleated RBC 0.020 H Nucleated RBC % (auto) 0.3 H Smear Path Review PT 11.2 INR 1.0 Sodium 138 Potassium 4.1 Chloride 96 Carbon Dioxide 21 L Anion Gap 25 H BUN 19 H Creatinine 0.90 Estim Creat Clear Calc 90.3 Estimated GFR > 60 Random Glucose 106 Fasting Glucose Calcium 8.4 Magnesium 1.3 L* Iron TIBC % Saturation Unsat Iron Binding Ferritin Total Bilirubin 5.4 H Direct Bilirubin 3.9 H AST 165 H ALT 71 H Alkaline Phosphatase 244 H Total Protein 7.8 Albumin 3.7 Vitamin B12 Folate Stool Occult Blood NEGATIVE Urine Opiates Screen Not Detected Ur Buprenorphine Scrn Not Detected Ur Oxycodone Screen Not Detected Urine Methadone Screen Not Detected Urine Fentanyl Screen Not Detected Ur Barbiturates Screen POSITIVE H Ur Phencyclidine Scrn Not Detected Ur Amphetamines Screen Not Detected U Benzodiazepines Scrn Not Detected Urine Cocaine Screen Not Detected U Marijuana (THC) Screen Not Detected Ethyl Alcohol 380 H* C. difficile Tox B Gene Hepatitis A IgM Ab Hep Bs Antigen Hep Bs Antibody Hep B Core Total Ab Hepatitis C Ab (EIA) Blood Type AB Positive Antibody Screen NEGATIVE Crossmatch See Detail 06/30/24 06/30/24 06/30/24 04:22 09:32 16:46 WBC 4.2 L RBC 2.27 L Hgb 7.1 L 7.8 L Hct 19.3 L* 21.7 L MCV 85.0 MCH 31.3 MCHC 36.8 H RDW 13.9 Plt Count 177 MPV 10.4 Immature Gran % (Auto) 0.5 H Neut % (Auto) 36.8 L Lymph % (Auto) 43.9 H [place] % (Auto) 17.6 H Eos % (Auto) 0.7 Baso % (Auto) 0.5 Lymph # (Auto) 1.8 [place] # (Auto) 0.7 Eos # (Auto) 0.0 Baso # (Auto) 0.0 Abs Immat Gran (auto) 0.02 Absolute Neuts (auto) 1.5 L Absolute Nucleated RBC 0.000 Nucleated RBC % (auto) 0.0 Smear Path Review PT INR Sodium 139 140 Potassium 2.7 L* D 3.8 D Chloride 99 102 Carbon Dioxide 23 24 Anion Gap 20 18 BUN 19 H 18 H Creatinine 0.81 0.78 Estim Creat Clear Calc 100.4 104.2 Estimated GFR > 60 > 60 Random Glucose 114 118 H Fasting Glucose Calcium 8.2 L 8.8 D Magnesium 1.7 Iron 223 H TIBC 248 % Saturation 90 H Unsat Iron Binding < 25 Ferritin 2683 H Total Bilirubin 4.7 H Direct Bilirubin AST 130 H ALT 61 H Alkaline Phosphatase 206 H Total Protein 6.5 Albumin 3.2 L Vitamin B12 352 Folate 4.7 Stool Occult Blood Urine Opiates Screen Ur Buprenorphine Scrn Ur Oxycodone Screen Urine Methadone Screen Urine Fentanyl Screen Ur Barbiturates Screen Ur Phencyclidine Scrn Ur Amphetamines Screen U Benzodiazepines Scrn Urine Cocaine Screen U Marijuana (THC) Screen Ethyl Alcohol C. difficile Tox B Gene Hepatitis A IgM Ab Hep Bs Antigen Hep Bs Antibody Hep B Core Total Ab Hepatitis C Ab (EIA) Blood Type Antibody Screen Crossmatch 07/01/24 07/01/24 07/02/24 06:28 16:31 01:55 WBC 5.5 RBC 2.31 L Hgb 7.0 L* 8.1 L Hct 19.5 L* 22.7 L MCV 84.4 MCH 30.3 MCHC 35.9 RDW 14.5 Plt Count 160 MPV 10.7 Immature Gran % (Auto) 0.7 H Neut % (Auto) 52.7 Lymph % (Auto) 32.1 [place] % (Auto) 13.0 H Eos % (Auto) 1.1 Baso % (Auto) 0.4 Lymph # (Auto) 1.8 [place] # (Auto) 0.7 Eos # (Auto) 0.1 Baso # (Auto) 0.0 Abs Immat Gran (auto) 0.04 H Absolute Neuts (auto) 2.9 Absolute Nucleated RBC 0.000 Nucleated RBC % (auto) 0.0 Smear Path Review SEE NOTE PT 11.2 INR 1.0 Sodium Potassium Chloride Carbon Dioxide Anion Gap BUN Creatinine Estim Creat Clear Calc Estimated GFR Random Glucose Fasting Glucose Calcium Magnesium Iron TIBC % Saturation Unsat Iron Binding Ferritin Total Bilirubin 4.2 H Direct Bilirubin 2.9 H AST 89 H ALT 43 H Alkaline Phosphatase 176 H Total Protein 6.2 L Albumin 3.0 L Vitamin B12 Folate Stool Occult Blood Urine Opiates Screen Ur Buprenorphine Scrn Ur Oxycodone Screen Urine Methadone Screen Urine Fentanyl Screen Ur Barbiturates Screen Ur Phencyclidine Scrn Ur Amphetamines Screen U Benzodiazepines Scrn Urine Cocaine Screen U Marijuana (THC) Screen Ethyl Alcohol C. difficile Tox B Gene NEGATIVE Hepatitis A IgM Ab Nonreactive Hep Bs Antigen Negative Hep Bs Antibody NONREACTIVE Hep B Core Total Ab Nonreactive Hepatitis C Ab (EIA) Reactive H Blood Type Antibody Screen Crossmatch 07/02/24 07:16 WBC 5.7 RBC 2.87 L D Hgb 8.7 L Hct 24.7 L MCV 86.1 MCH 30.3 MCHC 35.2 RDW 14.2 Plt Count 163 MPV 11.6 Immature Gran % (Auto) 1.1 H Neut % (Auto) 50.4 Lymph % (Auto) 34.3 [place] % (Auto) 12.6 H Eos % (Auto) 1.1 Baso % (Auto) 0.5 Lymph # (Auto) 1.9 [place] # (Auto) 0.7 Eos # (Auto) 0.1 Baso # (Auto) 0.0 Abs Immat Gran (auto) 0.06 H Absolute Neuts (auto) 2.9 Absolute Nucleated RBC 0.000 Nucleated RBC % (auto) 0.0 Smear Path Review PT INR Sodium 139 Potassium 2.9 L* D Chloride 100 Carbon Dioxide 29 Anion Gap 13 BUN 12 Creatinine 0.81 Estim Creat Clear Calc 103.7 Estimated GFR > 60 Random Glucose Fasting Glucose 96 Calcium 8.2 L D Magnesium Iron TIBC % Saturation Unsat Iron Binding Ferritin Total Bilirubin 3.1 H Direct Bilirubin 2.3 H AST 95 H ALT 41 H Alkaline Phosphatase 149 H Total Protein 6.1 L Albumin 2.9 L Vitamin B12 Folate Stool Occult Blood Urine Opiates Screen Ur Buprenorphine Scrn Ur Oxycodone Screen Urine Methadone Screen Urine Fentanyl Screen Ur Barbiturates Screen Ur Phencyclidine Scrn Ur Amphetamines Screen U Benzodiazepines Scrn Urine Cocaine Screen U Marijuana (THC) Screen Ethyl Alcohol C. difficile Tox B Gene Hepatitis A IgM Ab Hep Bs Antigen Hep Bs Antibody Hep B Core Total Ab Hepatitis C Ab (EIA) Blood Type Antibody Screen Crossmatch Airway Mallampati Class: II TM Dist: >3cm Neck ROM: Full Loose/Missing/Broken Teeth: Yes (multiple missing teeth) Heart: S1S2 Lungs: CTAB Assessment and Plan Assessment Anesthesia Assessment: Anesthesia Plan Discussed and Chart Reviewed Final Anesthetic Review Family History of Problems with Anesthesia: No History of Problems with Anesthesia: No NPO: Yes ASA Class: III Final Preanesthetic Review: No Changes in Pt Med Stat, Meds/Allgs Chart Reviewed, Consent Obtained/Reviewed and Anes Risks/Benef Reviewed Patient Risk: Intermediate Procedure Risk: Low Anesthetic Plan Anesthetic Plan: GA and Agree w/ Assess. and Plan Disposition: Standard PACU
--- NOTE | 2024-07-02 16:29 | HO.ADDICTPRO ---
Subjective Subjective Date of Service: 07/02/24 Reason For Visit: Alcohol Withdrawal Interim History: Patient seen in follow up for AUD Completing pheno taper-- Seen in room 470. He is awake, alert, minimally engaged in interview. Reporting abdominal pain. Inquiring about suboxone--states he had been taking it up until he ran out of it. Unclear how much he was taking daily- sometimes 1 sometimes 2 . Previous admission he was discharged on 4mg daily. When asked about other withdrawal sx, he reported my body just doesn't feel right Review of Systems Constitutional: Reports as per HPI Mental Status Exam Mental Status Exam Patient Appearance: Appropriate Level of Consciousness: Awake and Alert Patient Behavior: Passive Affect Description: Blunted Speech Pattern: Clear Judgement: Fair Diagnostics Vital Signs (24Hr): Vital Signs - 24 hr 07/01/24 16:38 07/01/24 16:58 07/01/24 19:09 Temperature 98.9 F 98.8 F 98.7 F Pulse Rate 80 75 84 Respiratory Rate 118 H 16 18 Blood Pressure 134/76 125/72 114/68 Pulse Oximetry Oxygen Delivery Method 07/01/24 19:21 07/01/24 23:33 07/02/24 03:11 Temperature 99.3 F 98.3 F 97.4 F Pulse Rate 78 84 77 Respiratory Rate 18 18 18 Blood Pressure 130/74 116/68 108/63 Pulse Oximetry 98 99 97 Oxygen Delivery Method Room Air Room Air Room Air 07/02/24 07:49 07/02/24 11:39 07/02/24 14:08 Temperature 98.7 F 100 F 99.7 F Pulse Rate 71 69 75 Respiratory Rate 16 16 18 Blood Pressure 140/84 H 133/85 122/84 Pulse Oximetry 95 98 94 Oxygen Delivery Method Room Air Room Air Room Air BMI result Body Mass Index 22.3 Labs 07/02/24 07:16 07/02/24 07:16 Labs: Laboratory Results - last 48 hr 06/29/24 06/30/24 07/01/24 23:53 16:46 06:28 WBC 5.5 RBC 2.31 L Hgb 7.8 L 7.0 L* Hct 21.7 L 19.5 L* MCV 84.4 MCH 30.3 MCHC 35.9 RDW 14.5 Plt Count 160 MPV 10.7 Immature Gran % (Auto) 0.7 H Neut % (Auto) 52.7 Lymph % (Auto) 32.1 [place] % (Auto) 13.0 H Eos % (Auto) 1.1 Baso % (Auto) 0.4 Lymph # (Auto) 1.8 [place] # (Auto) 0.7 Eos # (Auto) 0.1 Baso # (Auto) 0.0 Abs Immat Gran (auto) 0.04 H Absolute Neuts (auto) 2.9 Absolute Nucleated RBC 0.000 Nucleated RBC % (auto) 0.0 Smear Path Review SEE NOTE PT 11.2 INR 1.0 Sodium 140 Potassium 3.8 D Chloride 102 Carbon Dioxide 24 Anion Gap 18 BUN 18 H Creatinine 0.78 Estim Creat Clear Calc 104.2 Estimated GFR > 60 Random Glucose 118 H Fasting Glucose Calcium 8.8 D Total Bilirubin 4.2 H Direct Bilirubin 2.9 H AST 89 H ALT 43 H Alkaline Phosphatase 176 H Total Protein 6.2 L Albumin 3.0 L C. difficile Tox B Gene Hepatitis A IgM Ab Nonreactive Hep Bs Antigen Negative Hep Bs Antibody NONREACTIVE Hep B Core Total Ab Nonreactive Hepatitis C Ab (EIA) Reactive H Blood Type AB Positive Antibody Screen NEGATIVE Crossmatch See Detail 07/01/24 07/02/24 07/02/24 16:31 01:55 07:16 WBC 5.7 RBC 2.87 L D Hgb 8.1 L 8.7 L Hct 22.7 L 24.7 L MCV 86.1 MCH 30.3 MCHC 35.2 RDW 14.2 Plt Count 163 MPV 11.6 Immature Gran % (Auto) 1.1 H Neut % (Auto) 50.4 Lymph % (Auto) 34.3 [place] % (Auto) 12.6 H Eos % (Auto) 1.1 Baso % (Auto) 0.5 Lymph # (Auto) 1.9 [place] # (Auto) 0.7 Eos # (Auto) 0.1 Baso # (Auto) 0.0 Abs Immat Gran (auto) 0.06 H Absolute Neuts (auto) 2.9 Absolute Nucleated RBC 0.000 Nucleated RBC % (auto) 0.0 Smear Path Review PT INR Sodium 139 Potassium 2.9 L* D Chloride 100 Carbon Dioxide 29 Anion Gap 13 BUN 12 Creatinine 0.81 Estim Creat Clear Calc 103.7 Estimated GFR > 60 Random Glucose Fasting Glucose 96 Calcium 8.2 L D Total Bilirubin 3.1 H Direct Bilirubin 2.3 H AST 95 H ALT 41 H Alkaline Phosphatase 149 H Total Protein 6.1 L Albumin 2.9 L C. difficile Tox B Gene NEGATIVE Hepatitis A IgM Ab Hep Bs Antigen Hep Bs Antibody Hep B Core Total Ab Hepatitis C Ab (EIA) Blood Type Antibody Screen Crossmatch Imaging Radiology Impressions: ITS Impressions Abdomen Ultrasound 06/30/24 10:22 IMPRESSION: 1. Findings highly suggestive of acute cholecystitis. There are gallbladder stones, echogenic bile, mild wall thickening, small amounts of pericholecystic fluid and a positive sonographic Wood sign. 2. Mild hepatomegaly with diffusely increased hepatic echogenicity suggestive of steatosis. 3. There is mild intra and extrahepatic biliary dilatation, with the common bile duct measuring up to 15 mm proximally. Common duct obstruction is not excluded. 4. Mild caliectasis of the right kidney. Findings communicated to Dr. Lucio via secure text at 11:15 AM, 06/30/2024. Electronically signed by: Ruben Dutta MD 06/30/2024 11:15 AM EDT Medications Medications Current Medications Acetaminophen (Acetaminophen 325 Mg Tablet) 650 mg PO Q6H PRN PRN Reason: Pain, Mild 1-3,fever,headache Last Admin: 07/02/24 01:46 Dose: 650 mg Buprenorphine/Naloxone (Buprenorphine/Naloxone 2/0.5mg Film) 1 film SUBLINGUAL DAILY [facility] Last Admin: 07/02/24 11:36 Dose: 1 film Calcium Carbonate (Calcium Carbonate 750 Mg Tab.Chew) 750 mg PO Q4H PRN PRN Reason: Heartburn Haloperidol Lactate (Haloperidol Lactate 5 Mg/Ml Vial) 1 mg IVPUSH ONCE PRN PRN Reason: intractable nausea Stop: 07/02/24 20:51 Hydromorphone HCl (Hydromorphone Hcl 0.5 Mg/0.5 Ml Syringe) 0.5 mg IVPUSH Q5M PRN PRN Reason: Pain, Moderate to Severe (Pain Scale 4-10) Stop: 07/02/24 20:51 Piperacillin Sod/Tazobactam (Sod 4.5 gm/ Sodium Chloride) 100 mls @ 200 mls/hr IV Q6H ELLYN Last Admin: 07/02/24 14:04 Dose: Not Given Magnesium Hydroxide (Milk Of Magnesia 30 Ml Oral.Susp) 30 ml PO DAILY PRN PRN Reason: Constipation Melatonin (Melatonin 3 Mg Tablet) 6 mg PO BEDTIME PRN PRN Reason: Insomnia Last Admin: 07/01/24 21:18 Dose: 6 mg Naloxone HCl (Naloxone Hcl 0.4 Mg/Ml Vial) 0.04 mg IVPUSH Q5M PRN PRN Reason: Excessive sedation or RR < 8 Nicotine (Nicotine 21 Mg Patch.Td24) 21 mg TRANSDERMA DAILY [facility] Last Admin: 07/02/24 09:36 Dose: 21 mg Ondansetron HCl (Ondansetron Hcl 4 Mg/2 Ml Vial) 4 mg IVPUSH Q8H PRN PRN Reason: Nausea and Vomiting Pantoprazole Sodium (Pantoprazole Sodium 40 Mg/10 Ml Vial) 40 mg IVPUSH BID@0630,1630 [facility] Last Admin: 07/02/24 06:00 Dose: 40 mg Pharmacy Consult (Consult Rx Etoh Phenob Im/Po) 1 each MISCELLANE ONCE PRN; Protocol PRN Reason: Consult order Phenobarbital (Phenobarbital 15 Mg Tablet) 15 mg PO BID [facility]; Protocol Stop: 07/04/24 09:01 Phenobarbital (Phenobarbital 15 Mg Tablet) 15 mg PO DAILY [facility]; Protocol Stop: 07/06/24 09:01 Sodium Chloride (0.9 % Sodium Chloride Flush 3 Ml Syringe) 3 ml IVFLUSH QSHIFT [facility] Last Admin: 07/02/24 09:30 Dose: 3 ml Allergies Allergies Allergy/AdvReac Type Severity Reaction Status Date / Time No Known Allergies Allergy Verified 06/29/24 23:51 Assessment & Plan Assessment & Plan (1) Alcohol use disorder: Status: Acute Code(s): F10.90 - Alcohol use, unspecified, uncomplicated Assessment and Plan: withdrawal managed --completing pheno taper thiamine po 100mg QD (2) Opioid use disorder: Status: Acute Code(s): F11.90 - Opioid use, unspecified, uncomplicated Assessment and Plan: unclear if discomfort is related to withdrawal or not (or worsened d/t withdrawal) will order suboxone 2mg QD for now and reassess in the AM Total time managing care of this patient today __35__ minutes.
--- NOTE | 2024-07-02 17:52 | P.BOP_ITS ---
Brief Operative Note Date of Service: 07/02/24 Pre-op diagnosis: Choledocholithiasis Post-op diagnosis: other (Same, Proximal esophageal rings, Small hiatal hernia) Procedure: EGD, ERCP with sphincterotomy and removal of CBD stones Surgeon: Dorian Quiñones MD Anesthesia: GETA Was an Supervisor Laundry used for this Procedure?: No Estimated blood loss (mL): 2.0 Pathology: none sent Condition: stable Disposition: PACU
--- NOTE | 2024-07-02 17:54 | PM.EVENT ---
Event Note Date of Service: 07/02/24 Event Note: GI-Full note dictated Findings: EGD-Very proximal esophageal rings that were dilated with passage of the gastroscope. Small hiatal hernia. There was no evidence of varices, portal gastropathy, ulcers, esophagitis, gastritis, nor duodenitis.There was no blood in the UGI tract. Proximal esophagus had evidence of some mucosal tearing after the dilation of the esophageal rings, but no bleeding was noted. ERCP-Initially could not get past the above esophageal rings with the duodenoscope. I had to pass the ERCP scope over a guidewire that was initially placed with the gastroscope. Performed an approx. 8-10mm sphincterotomy and removed multiple stones and stone fragments from the CBD. Excellent drainage of bile and dye noted without any sign of purulence. Final cholangiograms revealed no futher filling defects and excellent drainage of bile and dye. Pancreas was cannulated once with the guidewire but was never injected with dye. The cystic duct and gallbladder did fill as well. Rec: Clear liquids for now until we're sure there was no significant injury to the proximal esophagus. Carafate suspension and po omeprazole. He should avoid all blood thinners, aspirin, and NSAIDs for at least a week. F/U labs in the AM. CCY as per the surgical service. Check Hep C viral load re: + Hep C antibody. If stable on Saturday, 07/03, and there are no plans for surgery, I would recommend advancing him to a soft diet. D/W patient and his significant other, Regina. Thanks. Time Spent With Patient Time: Total time managing care of this patient today ____ minutes.
--- NOTE | 2024-07-02 18:54 | P.PNIM_ITS ---
Subjective Subjective Date of Service: 07/02/24 Interval History: anemia Review of Systems Patient still has tremors, Right upper quadrant pain Elevated LFTs Review of Systems: Yes all other systems are reviewed and are negative Physical Exam 2 Vital Signs: Vital Signs: Last Vital Signs Temp 97.6 F 07/02/24 17:52 Pulse 80 07/02/24 18:07 Resp 17 07/02/24 18:07 BP 124/82 07/02/24 18:07 Pulse Ox 97 07/02/24 18:07 O2 Del Method Room Air 07/02/24 18:07 O2 Flow Rate 6 07/02/24 17:37 BMI result Body Mass Index 22.3 Appearance: Alert.? Oriented X3.? cvs: rrr, [id number]. res: air entry fair , no rales or wheezing. abd: ruq pain ,nt, bs present. ext pulses present , no cyanosis. neuro: axo3 , nonfocal. Objective Data Active Medications Acetaminophen (Acetaminophen 325 Mg Tablet) 650 mg PO Q6H PRN PRN Reason: Pain, Mild 1-3,fever,headache Last Admin: 07/02/24 01:46 Dose: 650 mg Documented By: NEHEMIAS Buprenorphine/Naloxone (Buprenorphine/Naloxone 2/0.5mg Film) 1 film SUBLINGUAL DAILY [facility] Last Admin: 07/02/24 11:36 Dose: 1 film Documented By: MARGIE Calcium Carbonate (Calcium Carbonate 750 Mg Tab.Chew) 750 mg PO Q4H PRN PRN Reason: Heartburn Haloperidol Lactate (Haloperidol Lactate 5 Mg/Ml Vial) 1 mg IVPUSH ONCE PRN PRN Reason: intractable nausea Stop: 07/02/24 20:51 Hydromorphone HCl (Hydromorphone Hcl 0.5 Mg/0.5 Ml Syringe) 0.5 mg IVPUSH Q5M PRN PRN Reason: Pain, Moderate to Severe (Pain Scale 4-10) Stop: 07/02/24 20:51 Piperacillin Sod/Tazobactam (Sod 4.5 gm/ Sodium Chloride) 100 mls @ 200 mls/hr IV Q6H [facility] Last Admin: 07/02/24 18:31 Dose: 200 mls/hr Documented By: MARGIE Magnesium Hydroxide (Milk Of Magnesia 30 Ml Oral.Susp) 30 ml PO DAILY PRN PRN Reason: Constipation Melatonin (Melatonin 3 Mg Tablet) 6 mg PO BEDTIME PRN PRN Reason: Insomnia Last Admin: 07/01/24 21:18 Dose: 6 mg Documented By: NEHEMIAS Naloxone HCl (Naloxone Hcl 0.4 Mg/Ml Vial) 0.04 mg IVPUSH Q5M PRN PRN Reason: Excessive sedation or RR < 8 Nicotine (Nicotine 21 Mg Patch.Td24) 21 mg TRANSDERMA DAILY [facility] Last Admin: 07/02/24 09:36 Dose: 21 mg Documented By: MARGIE Omeprazole (Omeprazole 20 Mg Capsule.Dr) 20 mg PO DAILY@0630 [facility] Ondansetron HCl (Ondansetron Hcl 4 Mg/2 Ml Vial) 4 mg IVPUSH Q8H PRN PRN Reason: Nausea and Vomiting Pharmacy Consult (Consult Rx Etoh Phenob Im/Po) 1 each MISCELLANE ONCE PRN; Protocol PRN Reason: Consult order Phenobarbital (Phenobarbital 15 Mg Tablet) 15 mg PO BID [facility]; Protocol Stop: 07/04/24 09:01 Phenobarbital (Phenobarbital 15 Mg Tablet) 15 mg PO DAILY [facility]; Protocol Stop: 07/06/24 09:01 Sodium Chloride (0.9 % Sodium Chloride Flush 3 Ml Syringe) 3 ml IVFLUSH QSHIFT [facility] Last Admin: 07/02/24 18:31 Dose: 3 ml Documented By: MARGIE Sucralfate (Sucralfate Oral Suspension 1 Gm/10 Ml Oral.Susp) 1 gm PO QIDACHS [facility] Labs 07/02/24 07:16 07/02/24 07:16 Labs: Laboratory Results - last 24 hr 06/29/24 07/01/24 07/02/24 23:53 06:28 01:55 MCV MCH MCHC RDW Plt Count MPV Immature Gran % (Auto) Neut % (Auto) Lymph % (Auto) [place] % (Auto) Eos % (Auto) Baso % (Auto) Lymph # (Auto) [place] # (Auto) Eos # (Auto) Baso # (Auto) Abs Immat Gran (auto) Absolute Neuts (auto) Absolute Nucleated RBC Nucleated RBC % (auto) Anion Gap Estim Creat Clear Calc Estimated GFR Fasting Glucose Calcium Total Bilirubin Direct Bilirubin AST ALT Alkaline Phosphatase Total Protein Albumin C. difficile Tox B Gene NEGATIVE Hepatitis A IgM Ab Nonreactive Crossmatch See Detail 07/02/24 07:16 MCV 86.1 MCH 30.3 MCHC 35.2 RDW 14.2 Plt Count 163 MPV 11.6 Immature Gran % (Auto) 1.1 H Neut % (Auto) 50.4 Lymph % (Auto) 34.3 [place] % (Auto) 12.6 H Eos % (Auto) 1.1 Baso % (Auto) 0.5 Lymph # (Auto) 1.9 [place] # (Auto) 0.7 Eos # (Auto) 0.1 Baso # (Auto) 0.0 Abs Immat Gran (auto) 0.06 H Absolute Neuts (auto) 2.9 Absolute Nucleated RBC 0.000 Nucleated RBC % (auto) 0.0 Anion Gap 13 Estim Creat Clear Calc 103.7 Estimated GFR > 60 Fasting Glucose 96 Calcium 8.2 L D Total Bilirubin 3.1 H Direct Bilirubin 2.3 H AST 95 H ALT 41 H Alkaline Phosphatase 149 H Total Protein 6.1 L Albumin 2.9 L C. difficile Tox B Gene Hepatitis A IgM Ab Crossmatch Assessment and Plan (1) Elevated LFTs: Status: Acute (2) Hypomagnesemia: Status: Acute Assessment and Plan: 58-year-old male with pertinent history of alcohol use disorder with history of alcohol withdrawal seizures, tobacco use disorder, chronic subdural hematoma, polysubstance IV drug use disorder who presents to the emergency department after a fall. Alcohol use disorder: Initiated on phenobarb protocol . Monitor CIWA. Consulted Addiction Team. Continue thiamine Fall in the setting of above possble acute cholecyctsitis: LFTs somewhat improving but still has right upper quadrant pain Continue Zosyn, GI evaluation noted-added MRCP, elevated Iron studies, normal B12 and Folate, and no signs of GI blood loss. Surgery evaluation Normocytic anemia: denies melena or hematochezia. Stool occult negative. given 1prbc clear liquid diet Ordered IV Protonix. moniter h/h: 8.7 gi -currently recommended monitor H&H, continue PPI and currently no need for EGD since the patient is occult blood negative, iron studies s/p ercp:Clear liquids for now until we're sure there was no significant injury to the proximal esophagus. Carafate suspension and po omeprazole. He should avoid all blood thinners, aspirin, and NSAIDs for at least a week. F/U labs in the AM. CCY as per the surgical service. Check Hep C viral load re: + Hep C antibody. If stable on Saturday, 07/03, and there are no plans for surgery, I would recommend advancing him to a soft diet. Hypomagnesemia/hypokalemia due to alcohol use: Repleted and resolved. Meds adjusted History of polysubstance use disorder: On Suboxone. UDS pending. Addiction Team as above Subdural hematoma: Chronic and stable Tobacco use disorder: Ordered nicotine patch DVT prophylaxis: Mechanical. Defer Lovenox in the setting of subdural hematoma Quality Stroke Does the patient have a stroke diagnosis?: No VTE Prior VTE?: No VTE Risk Level:: Medical - moderate - high VTE Device Contraindication: N/A - Device Ordered VTE Drug Contraindication: Treatment Not Indicated
[2024-07-02] MEDS: PHENobarbitaL 15 MG TABLET PO (21:49)
[2024-07-02] MEDS: Sucralfate Oral Suspension 1 GM/10 ML ORAL.SUSP PO (21:49)
--- NOTE | 2024-07-02 22:29 | OP_ITS ---
DATE OF SERVICE: 07/02/2024 SURGEON: Dorian Quiñones MD INDICATIONS: The patient presents for evaluation of anemia, chronic liver disease in relation to alcohol use, and choledocholithiasis. Full consent has been obtained from him for both procedures, including risks of bleeding, perforation, cholangitis, and pancreatitis. PREOPERATIVE DIAGNOSIS: POSTOPERATIVE DIAGNOSIS: PROCEDURE PERFORMED: Esophagogastroduodenoscopy and ERCP with sphincterotomy and removal of common bile duct stones. ESTIMATED BLOOD LOSS: COMPLICATIONS: ANESTHESIA: Medication used: General anesthesia and glucagon 0.5 mg IV x 2 doses. ASSISTANTS: SPECIMENS: PREOPERATIVE DIAGNOSES: Anemia, chronic liver disease, choledocholithiasis. POSTOPERATIVE DIAGNOSES: Anemia, chronic liver disease, choledocholithiasis, proximal esophageal rings, small hiatal hernia. There was no evidence of varices or portal gastropathy. DESCRIPTION OF PROCEDURE: The patient was placed in the semi-prone position. I initially passed the Olympus video gastroscope into the posterior oropharynx and upper esophagus. This was not done under direct vision given his intubated status and semiprone position. However, the scope did easily enter the esophagus. The scope was advanced to the gastroesophageal junction at 40 cm. I did not visualize any sign of esophagitis, varices, nor Zhao esophagus. The scope entered the stomach. There was a small hiatal hernia. The scope was advanced to the pylorus, and the duodenum was cannulated to the descending portion. The duodenum including the bulb appeared normal without mass or ulceration. The scope was withdrawn back to the stomach. The gastric antrum and body appeared normal with good peristalsis. The scope was retroflexed visualizing the proximal stomach carefully, which appeared normal, without any sign of varices or portal gastropathy. Of note, there was no blood or coffee-ground material in the upper GI tract. The scope was withdrawn back in the esophagus. The gastroesophageal junction appeared normal. The scope was then slowly withdrawn assessing the esophagus. In the very proximal esophagus between 18 and 20 cm, was an area of some rings with obvious trauma from the scope having passed it. The lumen was open. There was scope trauma in the area where the rings were dilated by the scope. There was clearly a mucosal defect, but no defect deeper than that from what I could see. There was no active bleeding. The scope was withdrawn from the patient. I then planned to past the duodenoscope for the ERCP. The Olympus video therapeutic duodenum scope was passed in the posterior oropharynx. Knowing now about the presence of the esophageal rings, the scope was very gently advanced past the upper esophageal sphincter. However, despite insufflation of air, I could not pass the proximal esophageal rings with the duodenoscope. At that point, the duodenoscope was withdrawn. The video gastroscope was then passed back into the posterior oropharynx and upper esophagus. I was able to easily pass the proximal esophagus. Once I was in the distal esophagus with the scope, I passed a guidewire through the gastroscope into the stomach. The gastroscope was then removed leaving the guidewire in place as seen by fluoroscopy. I was then able to pass the duodenoscope over the guidewire and get past the area of proximal esophageal narrowing. The guidewire was then removed. The scope was advanced into the stomach and to the pylorus. The duodenum was cannulated to the descending portion. The region of the major papilla was visualized. The papilla appeared bulging, but otherwise normal without any sign of mass or ulceration. There was no sign of any purulent drainage. Using a [employer] triple lumen sphincterotome, a selective cannulation of the biliary tree was obtained over the guidewire. Prior to that, there had been 1 single cannulation of the pancreatic duct with a guidewire, but without any injection of dye. Once I obtained a selective cannulation of the biliary tree, I obtained selective cholangiograms, which revealed some multiple filling defects in the distal portion of the common bile duct. The intrahepatic and proximal extrahepatic bile ducts filled well and appeared normal other than some dilatation of the extrahepatic duct. The cystic duct did fill as well as the gallbladder. At least 1 gallstone was noted in the gallbladder. I then performed an approximately 8 to 10 mm sphincterotomy over the guidewire without any immediate complication. There was excellent drainage of bile and dye noted, as well as some small stone fragments coming into the duodenum. I then was able to cannulate the bile duct with a retrieval balloon catheter. Using the 12 mm balloon, I swept the duct numerous times and pulled out multiple stones and stone fragments. The 12 mm balloon pulled into the duodenum easily in the fully inflated position as well. Final cholangiograms did not reveal any further filling defects and revealed excellent drainage of bile and dye into the intestine. Again, the cystic duct and gallbladder did fill. The scope was withdrawn form the patient once it was ascertained that there were no further filling defects in the bile duct. I then used the video gastroscope to again enter the proximal esophagus to reinspect the area of the very proximal esophagus with regard to the previous notation of the esophageal rings and dilation with the scope. The area of the mucosal tear appeared intact and without any sign of bleeding. The proximal esophagus did appear to definitely be more patent than previously when we first started the case. The scope was then withdrawn from the patient. He tolerated the procedures well and was returned to the recovery area in stable condition. IMPRESSION: 1. Choledocholithiasis. 2. Proximal esophageal rings, status post dilation with the gastroscope. 3. Small hiatal hernia. PLAN: Patient will begin a Carafate suspension and a p.o. omeprazole in regard to the finding of the proximal esophageal rings and the subsequent mucosal tear by the gastroscope. He will be maintained on clear liquids for now. He should avoid all blood thinners, aspirin, and NSAIDs for at least a week. He will have followup laboratories in the morning. He will have hepatitis C viral load checked given the positive hepatitis C antibody. In regard to a cholecystectomy, this will be left to the surgical services discretion. Given his comorbidities with his liver disease, and the fact that the gallbladder and cystic duct both filled on today's ERCP, it would tend to go against any component of significant cholecystitis at this time. If he is stable in the next 24 to 48 hours and there is no plan for surgery, then I would recommend advancing to a soft diet. Of note, in the recovery room, I did examine him, and there was no sign of any crepitus in his neck or chest wall area. This has all been discussed with the patient and his significant other, Nilda. MD KAYE Elizondo/DEMAR / [phone] FAITH
[2024-07-03] VITALS (7 sets, daily range): BP systolic 101–114; BP diastolic 56–72; PULSE 64–74; RESP 15–18; TEMP 36.3–37.2; O2SAT 98–100
[2024-07-03] MEDS: Omeprazole 20 MG CAPSULE.DR PO (06:03)
[2024-07-03] MEDS: Piperacillin Sodium/Tazobactam 4.5 GM in 0.9 % Sodium Chloride 100 ML IV ×3 (06:03→16:33)
[2024-07-03 06:47] LABS: MANUAL DIFF FLAG NO
[2024-07-03 06:52] LABS: Basophils Percent Auto 0.3 % (0-2); Eosinophils Percent Auto 0.5 % (0-4); Hematocrit 24.5 % (42.0-52.0); Hemoglobin 8.7 g/dl (14.0-18.0); Imm Gran Abs Auto 0.06 X10*3/uL (0.00-0.03); Lymphocytes Absolute Auto 1.8 X10*3/uL (1.2-4.9); Lymphocytes Percent Auto 31.5 % (20-40); Mean Corpuscular HGB Conc 35.5 g/dl (31.0-36.0); Mean Corpuscular Hemoglobin 31.2 pg (27.0-33.0); Mean Corpuscular Volume 87.8 fL (80.0-98.0); Mean Platelet Volume 11.2 fL (9.4-12.4); Monocytes Absolute Auto 0.6 X10*3/uL (0.1-1.2); Monocytes Percent Auto 10.9 % (2-11); Neutrophils Absolute Auto 3.2 x10*3/uL (2.0-8.3); Neutrophils Percent Auto 55.8 % (45-73); Platelet Count 159 X10*3/uL (160-400); Red Blood Count 2.79 X10*6/uL (4.60-5.80); Red Cell Distribution Width 14.3 % (11.0-16.0); White Blood Count 5.8 X10*3/uL (4.8-10.8)
[2024-07-03 07:12] LABS: Alanine Aminotransferase 35 U/L (0-40); Anion Gap 15 (12-20); Aspartate Amino Transferase 69 U/L (5-37); Bilirubin Direct 2.1 mg/dL (0.0-0.5); Bilirubin Total 2.7 mg/dL (0.0-1.0); Blood Urea Nitrogen 13 mg/dL (9-16); Calcium 7.6 mg/dL (8.4-10.2); Carbon Dioxide 26 mmol/L (22-29); Chloride 99 mmol/L (96-108); Estimated Glomerular Filt Rate > 60; Glucose Fasting 102 mg/dL (60-99); Potassium 3.5 mmol/L (3.3-5.1); Sodium 136 mmol/L (135-145); Total Protein 6.3 g/dL (6.5-8.0)
[2024-07-03 07:13] LABS: Alkaline Phosphatase 142 U/L (39-117)
[2024-07-03] MEDS: Sucralfate Oral Suspension 1 GM/10 ML ORAL.SUSP PO ×4 (08:40→19:51)
[2024-07-03] MEDS: Acetaminophen 325 MG TABLET 650 MG PO ×2 (08:41→19:50)
[2024-07-03] MEDS: Buprenorphine/Naloxone 2/0.5mg FILM 1 FILM SUBLINGUAL (08:41)
[2024-07-03] MEDS: Nicotine 21 MG PATCH.TD24 TRANSDERMA (08:41)
[2024-07-03] MEDS: PHENobarbitaL 15 MG TABLET PO ×2 (08:41→19:51)
[2024-07-03] MEDS: 0.9 % Sodium Chloride Flush 3 ML SYRINGE IVFLUSH ×2 (08:49→16:33)
--- NOTE | 2024-07-03 09:00 | HO.POSTANES ---
Post Anesthesia Evaluation Post Anesthesia Evaluation Date of Service: 07/03/24 Vital Signs: Vital Signs Temp Pulse Resp BP Pulse Ox O2 Del Method 07/03/24 08:18 65 114/72 99 07/03/24 07:40 99 F 65 15 114/72 99 Room Air 07/03/24 03:50 97.4 F 73 18 107/70 100 Room Air 07/02/24 23:30 97.5 F 90 18 137/84 99 Room Air Anesthesia: General Endotracheal-GETA Mental Status: Awake Pain Control: Satisfactory Nausea/Vomiting: None Hydration: Adequate Anesthesia-Related Issues: No Anes. Related Issues
--- NOTE | 2024-07-03 09:10 | P.PNGS_ITS ---
Subjective Subjective Date of Service: 07/03/24 <Mary Gomez PA-C - Last Filed: 07/03/24 09:13> 07/03/24 <Fredrick Harper MD - Last Filed: 07/03/24 13:08> Interval history: Tolerating clear liquids. Feels hungry. Continues to report vague upper abdominal pain but reports improved from yesterday. <Mary Gomez PA-C - Last Filed: 07/03/24 09:13> Physical Exam 2 Vital Signs: Vital Signs: Last Vital Signs Temp 99 F 07/03/24 07:40 Pulse 65 07/03/24 08:18 Resp 15 07/03/24 07:40 BP 114/72 07/03/24 08:18 Pulse Ox 99 07/03/24 08:18 O2 Del Method Room Air 07/03/24 07:40 O2 Flow Rate 6 07/02/24 17:37 BMI result Body Mass Index 22.3 <Mary Gomez PA-C - Last Filed: 07/03/24 09:13> Const: General: comfortable, no acute distress and alert <Mary Gomez PA-C - Last Filed: 07/03/24 09:13> Orientation/consciousness: patient oriented x3 <MIMI Savage Last Filed: 07/03/24 09:13> GI: Other: mild RUQ and LUQ tenderness <Mary Gomez PA-C - Last Filed: 07/03/24 09:13> Palpation (GI): Soft to palpation and no guarding <Mary Gomez PA-C - Last Filed: 07/03/24 09:13> Neuro: General: patient oriented x3 and moves all extremities <MIMI Savage Last Filed: 07/03/24 09:13> Objective Data Active Medications Acetaminophen (Acetaminophen 325 Mg Tablet) 650 mg PO Q6H PRN PRN Reason: Pain, Mild 1-3,fever,headache Last Admin: 07/03/24 08:41 Dose: 650 mg Documented By: MARGIE Buprenorphine/Naloxone (Buprenorphine/Naloxone 2/0.5mg Film) 1 film SUBLINGUAL DAILY [facility] Last Admin: 07/03/24 08:41 Dose: 1 film Documented By: MARGIE Calcium Carbonate (Calcium Carbonate 750 Mg Tab.Chew) 750 mg PO Q4H PRN PRN Reason: Heartburn Piperacillin Sod/Tazobactam (Sod 4.5 gm/ Sodium Chloride) 100 mls @ 200 mls/hr IV Q6H [facility] Last Infusion: 07/03/24 06:50 Dose: Infused Documented By: ED Magnesium Hydroxide (Milk Of Magnesia 30 Ml Oral.Susp) 30 ml PO DAILY PRN PRN Reason: Constipation Melatonin (Melatonin 3 Mg Tablet) 6 mg PO BEDTIME PRN PRN Reason: Insomnia Last Admin: 07/01/24 21:18 Dose: 6 mg Documented By: NEHEMIAS Naloxone HCl (Naloxone Hcl 0.4 Mg/Ml Vial) 0.04 mg IVPUSH Q5M PRN PRN Reason: Excessive sedation or RR < 8 Nicotine (Nicotine 21 Mg Patch.Td24) 21 mg TRANSDERMA DAILY [facility] Last Admin: 07/03/24 08:41 Dose: 21 mg Documented By: MARGIE Omeprazole (Omeprazole 20 Mg Capsule.Dr) 20 mg PO DAILY@0630 [facility] Last Admin: 07/03/24 06:03 Dose: 20 mg Documented By: ED Ondansetron HCl (Ondansetron Hcl 4 Mg/2 Ml Vial) 4 mg IVPUSH Q8H PRN PRN Reason: Nausea and Vomiting Pharmacy Consult (Consult Rx Etoh Phenob Im/Po) 1 each MISCELLANE ONCE PRN; Protocol PRN Reason: Consult order Phenobarbital (Phenobarbital 15 Mg Tablet) 15 mg PO BID [facility]; Protocol Stop: 07/04/24 09:01 Last Admin: 07/03/24 08:41 Dose: 15 mg Documented By: MARGIE Phenobarbital (Phenobarbital 15 Mg Tablet) 15 mg PO DAILY [facility]; Protocol Stop: 07/06/24 09:01 Sodium Chloride (0.9 % Sodium Chloride Flush 3 Ml Syringe) 3 ml IVFLUSH QSHIFT [facility] Last Admin: 07/03/24 08:49 Dose: 3 ml Documented By: MARGIE Sucralfate (Sucralfate Oral Suspension 1 Gm/10 Ml Oral.Susp) 1 gm PO QIDACHS [facility] Last Admin: 07/03/24 08:40 Dose: 1 gm Documented By: MARGIE <Mary Gomez PA-C - Last Filed: 07/03/24 09:13> Labs CBC & Chem 7: 07/03/24 06:20 07/03/24 06:20 <Mary Gomez PA-C - Last Filed: 07/03/24 09:13> Labs: Laboratory Results - last 24 hr 07/03/24 06:20 MCV 87.8 MCH 31.2 MCHC 35.5 RDW 14.3 Plt Count 159 L MPV 11.2 Immature Gran % (Auto) 1.0 H Neut % (Auto) 55.8 Lymph % (Auto) 31.5 [place] % (Auto) 10.9 Eos % (Auto) 0.5 Baso % (Auto) 0.3 Lymph # (Auto) 1.8 [place] # (Auto) 0.6 Eos # (Auto) 0.0 Baso # (Auto) 0.0 Abs Immat Gran (auto) 0.06 H Absolute Neuts (auto) 3.2 Absolute Nucleated RBC 0.000 Nucleated RBC % (auto) 0.0 Anion Gap 15 Estim Creat Clear Calc 112.0 Estimated GFR > 60 Fasting Glucose 102 H Calcium 7.6 L D Total Bilirubin 2.7 H Direct Bilirubin 2.1 H AST 69 H ALT 35 Alkaline Phosphatase 142 H Total Protein 6.3 L Albumin 3.0 L <Mary Gomez PA-C - Last Filed: 07/03/24 09:13> Procedures Date of Service Date of Service: 07/03/24 <Mary Gomez PA-C - Last Filed: 07/03/24 09:13> 07/03/24 <Fredrick Harper MD - Last Filed: 07/03/24 13:08> Progress Note: A&P Assessment and plan (1) Elevated LFTs: Status: Acute <Mary Gomez PA-C - Last Filed: 07/03/24 09:13> Assessment and Plan: Underwent EGD, ERCP with sphincterotomy and removal of CBD stones yesterday. Cystic duct/GB filled on IOC going against acute cholecystitis. Bilirubin continues to improve. Would hold off on cholecystectomy in this patient. He is comfortable with plan. Diet as per GI. <Mary Gomez PA-C - Last Filed: 07/03/24 09:13> Time Spent With Patient Time: Total time managing care of this patient today ____ minutes. <Mary Gomez PA-C - Last Filed: 07/03/24 09:13> Quality Stroke Does the patient have a stroke diagnosis?: No <Mary Gomez PA-C - Last Filed: 07/03/24 09:13> VTE Prior VTE?: No <Mary Gomez PA-C - Last Filed: 07/03/24 09:13> VTE Risk Level:: Medical - moderate - high <MIMI Savage Last Filed: 07/03/24 09:13> VTE Device Contraindication: N/A - Device Ordered <Mary Gomez PA-C - Last Filed: 07/03/24 09:13> VTE Drug Contraindication: Treatment Not Indicated <Mary Gomez PA-C - Last Filed: 07/03/24 09:13>
[2024-07-03 11:03] LABS: Alpha Fetoprotein 4.9 ng/mL (<6.1)
--- NOTE | 2024-07-03 12:06 | MHC.CM.PN ---
EMR REVIEWED, PT W/ETOH WITHDRAWAL S/P EGD W/SPHINCTERECTOMY AND REMOVAL OF STONE, PT CONT'S TO COMPLAIN OF PAIN AND REMAINS ON PHENOBARB PROTICAL, CM WILL CONT TO FOLLOW DC NEEDS.
--- NOTE | 2024-07-03 14:52 | P.PNADD_ITS ---
Subjective Subjective Date of Service: 07/03/24 Reason For Visit: Alcohol Withdrawal Interim History: Patient seen in follow up for OUD and AUD Restarted on suboxone yesterday --today reporting that he does not wish to continue it. States that it made him nauseous and did not help the way he was feeling. Completing pheno taper. No alcohol withdrawal sx reported Review of Systems Medical Review of Systems: unchanged Mental Status Exam Mental Status Exam Level of Consciousness: Awake Patient Behavior: Appropriate Affect Description: Blunted Speech Pattern: Clear Diagnostics Vital Signs (24Hr): Vital Signs - 24 hr 07/02/24 17:37 07/02/24 17:42 07/02/24 17:47 Temperature 97.3 F Pulse Rate 64 80 71 Respiratory Rate 14 16 16 Blood Pressure 122/67 120/83 115/76 Pulse Oximetry 100 100 95 Oxygen Delivery Method Simple Mask Room Air Room Air Oxygen Flow Rate 6 07/02/24 17:52 07/02/24 18:07 07/02/24 20:00 Temperature 97.6 F 96.9 F Pulse Rate 71 80 60 Respiratory Rate 17 17 16 Blood Pressure 120/78 124/82 119/69 Pulse Oximetry 96 97 96 Oxygen Delivery Method Room Air Room Air Room Air Oxygen Flow Rate 07/02/24 23:30 07/03/24 03:50 07/03/24 07:40 Temperature 97.5 F 97.4 F 99 F Pulse Rate 90 73 65 Respiratory Rate 18 18 15 Blood Pressure 137/84 107/70 114/72 Pulse Oximetry 99 100 99 Oxygen Delivery Method Room Air Room Air Room Air Oxygen Flow Rate 07/03/24 08:18 07/03/24 11:22 Temperature 98.1 F Pulse Rate 65 73 Respiratory Rate 16 Blood Pressure 114/72 113/72 Pulse Oximetry 99 99 Oxygen Delivery Method Room Air Oxygen Flow Rate BMI result Body Mass Index 22.3 Labs 07/03/24 06:20 07/03/24 06:20 Labs: Laboratory Results - last 48 hr 06/29/24 07/01/24 07/01/24 23:53 06:28 16:31 WBC RBC Hgb 8.1 L Hct 22.7 L MCV MCH MCHC RDW Plt Count MPV Immature Gran % (Auto) Neut % (Auto) Lymph % (Auto) [place] % (Auto) Eos % (Auto) Baso % (Auto) Lymph # (Auto) [place] # (Auto) Eos # (Auto) Baso # (Auto) Abs Immat Gran (auto) Absolute Neuts (auto) Absolute Nucleated RBC Nucleated RBC % (auto) Sodium Potassium Chloride Carbon Dioxide Anion Gap BUN Creatinine Estim Creat Clear Calc Estimated GFR Fasting Glucose Calcium Total Bilirubin Direct Bilirubin AST ALT Alkaline Phosphatase Total Protein Albumin Alpha Fetoprotein 4.9 C. difficile Tox B Gene Hepatitis A IgM Ab Nonreactive Blood Type AB Positive Antibody Screen NEGATIVE Crossmatch See Detail 07/02/24 07/02/24 07/03/24 01:55 07:16 06:20 WBC 5.7 5.8 RBC 2.87 L D 2.79 L Hgb 8.7 L 8.7 L Hct 24.7 L 24.5 L MCV 86.1 87.8 MCH 30.3 31.2 MCHC 35.2 35.5 RDW 14.2 14.3 Plt Count 163 159 L MPV 11.6 11.2 Immature Gran % (Auto) 1.1 H 1.0 H Neut % (Auto) 50.4 55.8 Lymph % (Auto) 34.3 31.5 [place] % (Auto) 12.6 H 10.9 Eos % (Auto) 1.1 0.5 Baso % (Auto) 0.5 0.3 Lymph # (Auto) 1.9 1.8 [place] # (Auto) 0.7 0.6 Eos # (Auto) 0.1 0.0 Baso # (Auto) 0.0 0.0 Abs Immat Gran (auto) 0.06 H 0.06 H Absolute Neuts (auto) 2.9 3.2 Absolute Nucleated RBC 0.000 0.000 Nucleated RBC % (auto) 0.0 0.0 Sodium 139 136 Potassium 2.9 L* D 3.5 D Chloride 100 99 Carbon Dioxide 29 26 Anion Gap 13 15 BUN 12 13 Creatinine 0.81 0.75 Estim Creat Clear Calc 103.7 112.0 Estimated GFR > 60 > 60 Fasting Glucose 96 102 H Calcium 8.2 L D 7.6 L D Total Bilirubin 3.1 H 2.7 H Direct Bilirubin 2.3 H 2.1 H AST 95 H 69 H ALT 41 H 35 Alkaline Phosphatase 149 H 142 H Total Protein 6.1 L 6.3 L Albumin 2.9 L 3.0 L Alpha Fetoprotein C. difficile Tox B Gene NEGATIVE Hepatitis A IgM Ab Blood Type Antibody Screen Crossmatch Imaging Radiology Impressions: ITS Impressions Abdomen Ultrasound 06/30/24 10:22 IMPRESSION: 1. Findings highly suggestive of acute cholecystitis. There are gallbladder stones, echogenic bile, mild wall thickening, small amounts of pericholecystic fluid and a positive sonographic Wood sign. 2. Mild hepatomegaly with diffusely increased hepatic echogenicity suggestive of steatosis. 3. There is mild intra and extrahepatic biliary dilatation, with the common bile duct measuring up to 15 mm proximally. Common duct obstruction is not excluded. 4. Mild caliectasis of the right kidney. Findings communicated to Dr. Lucio via secure text at 11:15 AM, 06/30/2024. Electronically signed by: Ruben Dutta MD 06/30/2024 11:15 AM EDT RP Guidance Fluoroscopy 07/02/24 15:31 IMPRESSION: Fluoroscopy during procedure. Please see procedure report for additional information. Electronically signed by: Dorian Crouch MD 07/03/2024 07:20 AM EDT RP Medications Medications Current Medications Acetaminophen (Acetaminophen 325 Mg Tablet) 650 mg PO Q6H PRN PRN Reason: Pain, Mild 1-3,fever,headache Last Admin: 07/03/24 08:41 Dose: 650 mg Calcium Carbonate (Calcium Carbonate 750 Mg Tab.Chew) 750 mg PO Q4H PRN PRN Reason: Heartburn Piperacillin Sod/Tazobactam (Sod 4.5 gm/ Sodium Chloride) 100 mls @ 200 mls/hr IV Q6H [facility] Last Infusion: 07/03/24 12:06 Dose: Infused Magnesium Hydroxide (Milk Of Magnesia 30 Ml Oral.Susp) 30 ml PO DAILY PRN PRN Reason: Constipation Melatonin (Melatonin 3 Mg Tablet) 6 mg PO BEDTIME PRN PRN Reason: Insomnia Last Admin: 07/01/24 21:18 Dose: 6 mg Naloxone HCl (Naloxone Hcl 0.4 Mg/Ml Vial) 0.04 mg IVPUSH Q5M PRN PRN Reason: Excessive sedation or RR < 8 Nicotine (Nicotine 21 Mg Patch.Td24) 21 mg TRANSDERMA DAILY [facility] Last Admin: 07/03/24 08:41 Dose: 21 mg Omeprazole (Omeprazole 20 Mg Capsule.) 20 mg PO DAILY@0630 [facility] Last Admin: 07/03/24 06:03 Dose: 20 mg Ondansetron HCl (Ondansetron Hcl 4 Mg/2 Ml Vial) 4 mg IVPUSH Q8H PRN PRN Reason: Nausea and Vomiting Pharmacy Consult (Consult Rx Etoh Phenob Im/Po) 1 each MISCELLANE ONCE PRN; Protocol PRN Reason: Consult order Phenobarbital (Phenobarbital 15 Mg Tablet) 15 mg PO BID [facility]; Protocol Stop: 07/04/24 09:01 Last Admin: 07/03/24 08:41 Dose: 15 mg Phenobarbital (Phenobarbital 15 Mg Tablet) 15 mg PO DAILY [facility]; Protocol Stop: 07/06/24 09:01 Sodium Chloride (0.9 % Sodium Chloride Flush 3 Ml Syringe) 3 ml IVFLUSH QSHIFT [facility] Last Admin: 07/03/24 08:49 Dose: 3 ml Sucralfate (Sucralfate Oral Suspension 1 Gm/10 Ml Oral.Susp) 1 gm PO QIDACHS [facility] Last Admin: 07/03/24 11:26 Dose: 1 gm Allergies Allergies Allergy/AdvReac Type Severity Reaction Status Date / Time No Known Allergies Allergy Verified 06/29/24 23:51 Assessment & Plan Assessment & Plan (1) Opioid use disorder: Status: Acute Code(s): F11.90 - Opioid use, unspecified, uncomplicated Assessment and Plan: * d/c suboxone * declines MOUD or referral for treatment of OUD following discharge (2) Alcohol use disorder: Status: Acute Code(s): F10.90 - Alcohol use, unspecified, uncomplicated Assessment and Plan: * completing phenobarbital taper * declines MAUREEN or referral for treatment of AUD following discharge Total time managing care of this patient today __20__ minutes.
--- NOTE | 2024-07-03 16:39 | P.PNIM_ITS ---
Subjective Subjective Date of Service: 07/03/24 Interval History: anemia Review of Systems Has intermittent abdominal pain No nausea vomiting LFT seems improving Review of Systems: Yes all other systems are reviewed and are negative Physical Exam 2 Vital Signs: Vital Signs: Last Vital Signs Temp 98.7 F 07/03/24 15:37 Pulse 64 07/03/24 15:37 Resp 16 07/03/24 15:37 BP 101/56 L 07/03/24 15:37 Pulse Ox 99 07/03/24 15:37 O2 Del Method Room Air 07/03/24 15:37 O2 Flow Rate 6 07/02/24 17:37 BMI result Body Mass Index 22.3 Appearance: Alert.? Oriented X3.? cvs: rrr, [id number]. res: air entry fair , no rales or wheezing. abd: ruq pain ,nt, bs present. ext pulses present , no cyanosis. neuro: axo3 , nonfocal Objective Data Active Medications Acetaminophen (Acetaminophen 325 Mg Tablet) 650 mg PO Q6H PRN PRN Reason: Pain, Mild 1-3,fever,headache Last Admin: 07/03/24 08:41 Dose: 650 mg Documented By: MARGIE Calcium Carbonate (Calcium Carbonate 750 Mg Tab.Chew) 750 mg PO Q4H PRN PRN Reason: Heartburn Piperacillin Sod/Tazobactam (Sod 4.5 gm/ Sodium Chloride) 100 mls @ 200 mls/hr IV Q6H [facility] Last Admin: 07/03/24 16:33 Dose: 200 mls/hr Documented By: MARGIE Magnesium Hydroxide (Milk Of Magnesia 30 Ml Oral.Susp) 30 ml PO DAILY PRN PRN Reason: Constipation Melatonin (Melatonin 3 Mg Tablet) 6 mg PO BEDTIME PRN PRN Reason: Insomnia Last Admin: 07/01/24 21:18 Dose: 6 mg Documented By: NEHEMIAS Naloxone HCl (Naloxone Hcl 0.4 Mg/Ml Vial) 0.04 mg IVPUSH Q5M PRN PRN Reason: Excessive sedation or RR < 8 Nicotine (Nicotine 21 Mg Patch.Td24) 21 mg TRANSDERMA DAILY [facility] Last Admin: 07/03/24 08:41 Dose: 21 mg Documented By: MARGIE Omeprazole (Omeprazole 20 Mg Capsule.) 20 mg PO DAILY@0630 [facility] Last Admin: 07/03/24 06:03 Dose: 20 mg Documented By: ED Ondansetron HCl (Ondansetron Hcl 4 Mg/2 Ml Vial) 4 mg IVPUSH Q8H PRN PRN Reason: Nausea and Vomiting Pharmacy Consult (Consult Rx Etoh Phenob Im/Po) 1 each MISCELLANE ONCE PRN; Protocol PRN Reason: Consult order Phenobarbital (Phenobarbital 15 Mg Tablet) 15 mg PO BID [facility]; Protocol Stop: 07/04/24 09:01 Last Admin: 07/03/24 08:41 Dose: 15 mg Documented By: MARGIE Phenobarbital (Phenobarbital 15 Mg Tablet) 15 mg PO DAILY [facility]; Protocol Stop: 07/06/24 09:01 Sodium Chloride (0.9 % Sodium Chloride Flush 3 Ml Syringe) [facility] Last Admin: 07/03/24 16:33 Dose: 3 ml Documented By: MARGIE Sucralfate (Sucralfate Oral Suspension 1 Gm/10 Ml Oral.Susp) 1 gm PO QIDACHS [facility] Last Admin: 07/03/24 16:32 Dose: 1 gm Documented By: MARGIE Labs 07/03/24 06:20 07/03/24 06:20 Labs: Laboratory Results - last 24 hr 07/01/24 07/03/24 06:28 06:20 MCV 87.8 MCH 31.2 MCHC 35.5 RDW 14.3 Plt Count 159 L MPV 11.2 Immature Gran % (Auto) 1.0 H Neut % (Auto) 55.8 Lymph % (Auto) 31.5 [place] % (Auto) 10.9 Eos % (Auto) 0.5 Baso % (Auto) 0.3 Lymph # (Auto) 1.8 [place] # (Auto) 0.6 Eos # (Auto) 0.0 Baso # (Auto) 0.0 Abs Immat Gran (auto) 0.06 H Absolute Neuts (auto) 3.2 Absolute Nucleated RBC 0.000 Nucleated RBC % (auto) 0.0 Anion Gap 15 Estim Creat Clear Calc 112.0 Estimated GFR > 60 Fasting Glucose 102 H Calcium 7.6 L D Total Bilirubin 2.7 H Direct Bilirubin 2.1 H AST 69 H ALT 35 Alkaline Phosphatase 142 H Total Protein 6.3 L Albumin 3.0 L Alpha Fetoprotein 4.9 Assessment and Plan (1) Elevated LFTs: Status: Acute (2) Hypomagnesemia: Status: Acute Assessment and Plan: 58-year-old male with pertinent history of alcohol use disorder with history of alcohol withdrawal seizures, tobacco use disorder, chronic subdural hematoma, polysubstance IV drug use disorder who presents to the emergency department after a fall. Alcohol use disorder: Initiated on phenobarb protocol . Monitor CIWA. Consulted Addiction Team. Continue thiamine Fall in the setting of above Choledocholithiasis: LFTs somewhat improving but still has right upper quadrant pain Continue Zosyn, mrcp: describes a distal CBD stone. Patient's s/pERCP,gi -currently recommended monitor H&H, continue PPI and currently no need for EGD since the patient is occult blood negative, iron studies s/p ercp:Clear liquids for now until we're sure there was no significant injury to the proximal esophagus. Carafate suspension and po omeprazole. He should avoid all blood thinners, aspirin, and NSAIDs for at least a week. F/U labs in the AM. CCY as per the surgical service. Check Hep C viral load re: + Hep C antibody. If stable on Saturday, 07/03, and there are no plans for surgery, I would recommend advancing him to a soft diet. elevated Iron studies, normal B12 and Folate, and no signs of GI blood loss. Surgery evaluation-currently deffer surgery -Cystic duct/GB filled on IOC going against acute cholecystitis. Bilirubin continues to improve. Would hold off on cholecystectomy in this patient Normocytic anemia: denies melena or hematochezia. Stool occult negative. given 1prbc plan: continue IV Protonix, soft diet moniter h/h: 8.7/24.5 Hypomagnesemia/hypokalemia due to alcohol use: Repleted and resolved. History of polysubstance use disorder: On Suboxone. UDS pending. Addiction Team as above Subdural hematoma: Chronic and stable Tobacco use disorder: Ordered nicotine patch DVT prophylaxis: Mechanical. Defer Lovenox in the setting of subdural hematoma. ongoing need:abd pain ,anemia : need h/h monitering ,abd pain ,trial of po intake , renal function and electrolytes monitering. Quality Stroke Does the patient have a stroke diagnosis?: No VTE Prior VTE?: No VTE Risk Level:: Medical - moderate - high VTE Device Contraindication: N/A - Device Ordered VTE Drug Contraindication: Treatment Not Indicated
[2024-07-04] VITALS (7 sets, daily range): BP systolic 118–139; BP diastolic 59–77; PULSE 59–77; RESP 16–18; TEMP 36.4–37.2; O2SAT 97–99
[2024-07-04] MEDS: Piperacillin Sodium/Tazobactam 4.5 GM in 0.9 % Sodium Chloride 100 ML IV ×4 (00:12→17:23)
[2024-07-04] MEDS: 0.9 % Sodium Chloride Flush 3 ML SYRINGE IVFLUSH ×3 (00:14→17:26)
[2024-07-04] MEDS: Sucralfate Oral Suspension 1 GM/10 ML ORAL.SUSP PO ×4 (06:46→20:39)
[2024-07-04] MEDS: Omeprazole 20 MG CAPSULE.DR PO (06:46)
--- NOTE | 2024-07-04 07:56 | P.PNIM_ITS ---
Subjective Subjective Date of Service: 07/05/24 Interval History: abd pain Review of Systems abd pain /elevated lfts elevated heptitis c viralload Review of Systems: Yes all other systems are reviewed and are negative Physical Exam 2 Vital Signs: Vital Signs: Last Vital Signs Temp 98.7 F 07/04/24 07:44 Pulse 59 07/04/24 07:44 Resp 16 07/04/24 07:44 BP 139/71 07/04/24 07:44 Pulse Ox 98 07/04/24 07:44 O2 Del Method Room Air 07/04/24 07:44 O2 Flow Rate 6 07/02/24 17:37 BMI result Body Mass Index 22.3 Appearance: Alert.? Oriented X3.? cvs: rrr, [id number]. res: air entry fair , no rales or wheezing. abd: mild diffuse pain,nt, bs present. ext pulses present , no cyanosis. neuro: axo3 , nonfocal Objective Data Active Medications Acetaminophen (Acetaminophen 325 Mg Tablet) 650 mg PO Q6H PRN PRN Reason: Pain, Mild 1-3,fever,headache Last Admin: 07/03/24 19:50 Dose: 650 mg Documented By: MATTHEW Calcium Carbonate (Calcium Carbonate 750 Mg Tab.Chew) 750 mg PO Q4H PRN PRN Reason: Heartburn Piperacillin Sod/Tazobactam (Sod 4.5 gm/ Sodium Chloride) 100 mls @ 200 mls/hr IV Q6H [facility] Last Infusion: 07/04/24 07:14 Dose: Infused Documented By: JANELL Magnesium Hydroxide (Milk Of Magnesia 30 Ml Oral.Susp) 30 ml PO DAILY PRN PRN Reason: Constipation Melatonin (Melatonin 3 Mg Tablet) 6 mg PO BEDTIME PRN PRN Reason: Insomnia Last Admin: 07/01/24 21:18 Dose: 6 mg Documented By: NEHEMIAS Naloxone HCl (Naloxone Hcl 0.4 Mg/Ml Vial) 0.04 mg IVPUSH Q5M PRN PRN Reason: Excessive sedation or RR < 8 Nicotine (Nicotine 21 Mg Patch.Td24) 21 mg TRANSDERMA DAILY [facility] Last Admin: 07/03/24 08:41 Dose: 21 mg Documented By: MARGIE Omeprazole (Omeprazole 20 Mg Capsule.) 20 mg PO DAILY@0630 [facility] Last Admin: 07/04/24 06:46 Dose: 20 mg Documented By: HARJIT Ondansetron HCl (Ondansetron Hcl 4 Mg/2 Ml Vial) 4 mg IVPUSH Q8H PRN PRN Reason: Nausea and Vomiting Pharmacy Consult (Consult Rx Etoh Phenob Im/Po) 1 each MISCELLANE ONCE PRN; Protocol PRN Reason: Consult order Phenobarbital (Phenobarbital 15 Mg Tablet) 15 mg PO BID [facility]; Protocol Stop: 07/04/24 09:01 Last Admin: 07/03/24 19:51 Dose: 15 mg Documented By: MATTHEW Phenobarbital (Phenobarbital 15 Mg Tablet) 15 mg PO DAILY [facility]; Protocol Stop: 07/06/24 09:01 Sodium Chloride (0.9 % Sodium Chloride Flush 3 Ml Syringe) 3 ml IVFLUSH QSHIFT [facility] Last Admin: 07/04/24 00:14 Dose: 3 ml Documented By: HARJIT Sucralfate (Sucralfate Oral Suspension 1 Gm/10 Ml Oral.Susp) 1 gm PO QIDACHS [facility] Last Admin: 07/04/24 06:46 Dose: 1 gm Documented By: HARJIT Labs 07/04/24 08:02 07/05/24 13:50 Labs: Laboratory Results - last 24 hr 07/01/24 06:28 Alpha Fetoprotein 4.9 Assessment and Plan (1) Elevated LFTs: Status: Acute (2) Hypomagnesemia: Status: Acute Assessment and Plan: 58-year-old male with pertinent history of alcohol use disorder with history of alcohol withdrawal seizures, tobacco use disorder, chronic subdural hematoma, polysubstance IV drug use disorder who presents to the emergency department after a fall. Alcohol use disorder mild tremer /anxious continue pheno. Continue thiamine Fall in the setting of above. Choledocholithiasis: LFTs somewhat improving but still has right upper quadrant pain Continue Zosyn, mrcp: describes a distal CBD stone. Patient's s/pERCP,gi -currently recommended monitor H&H, continue PPI and currently no need for EGD since the patient is occult blood negative, iron studies s/p ercp: Check Hep C viral load re: + Hep C antibody. If stable on Saturday, 07/03, and there are no plans for surgery, I would recommend advancing him to a soft diet. elevated Iron studies, normal B12 and Folate, and no signs of GI blood loss. Surgery evaluation-currently deffer surgery -Cystic duct/GB filled on IOC going against acute cholecystitis. Bilirubin continues to improve. Would hold off on cholecystectomy in this patient Normocytic anemia: denies melena or hematochezia. Stool occult negative. given 1prbc plan: continue IV Protonix, soft diet moniter h/h: 8.1/24.5 continue Carafate suspension and po omeprazole. avoid all blood thinners, aspirin, and NSAIDs for at least a week. CCY as per the surgical service. Hypomagnesemia/hypokalemia due to alcohol use: added po and iv potassium History of polysubstance use disorder: was on subaxone ,now off Addiction Team as above Subdural hematoma: Chronic and stable Tobacco use disorder: Ordered nicotine patch DVT prophylaxis: Mechanical. Defer Lovenox in the setting of subdural hematoma. ongoing need:abd pain ,anemia,electrolytic abnormalities : need h/h monitering ,abd pain ,trial of po intake , renal function and electrolytes monitering. Quality Stroke Does the patient have a stroke diagnosis?: No VTE Prior VTE?: No VTE Risk Level:: Medical - moderate - high VTE Device Contraindication: N/A - Device Ordered VTE Drug Contraindication: Treatment Not Indicated
[2024-07-04 08:14] LABS: Hematocrit 23.7 % (42.0-52.0); Hemoglobin 8.1 g/dl (14.0-18.0)
[2024-07-04] MEDS: Nicotine 21 MG PATCH.TD24 TRANSDERMA (08:19)
[2024-07-04] MEDS: PHENobarbitaL 15 MG TABLET PO (08:19)
[2024-07-04 08:45] LABS: Alanine Aminotransferase 30 U/L (0-40); Albumin Level 2.9 g/dL (3.5-5.0); Alkaline Phosphatase 121 U/L (39-117); Anion Gap 15 (12-20); Aspartate Amino Transferase 55 U/L (5-37); Bilirubin Total 2.4 mg/dL (0.0-1.0); Blood Urea Nitrogen 8 mg/dL (9-16); Calcium 7.6 mg/dL (8.4-10.2); Carbon Dioxide 27 mmol/L (22-29); Chloride 104 mmol/L (96-108); Creatinine Clr Calc Pharmacy 106.3; Estimated Glomerular Filt Rate > 60; Glucose Random 90 mg/dL (60-115); Potassium 3.1 mmol/L (3.3-5.1); Sodium 143 mmol/L (135-145)
[2024-07-04 11:18] LABS: HCV Log PCR 6.43 Log IU/mL (NOT DETECTED); HepC Viral Load 2700000 IU/mL (NOT DETECTED)
[2024-07-04] MEDS: Potassium Chloride ER 20 MEQ TAB.ER.PRT PO (15:03)
[2024-07-04] MEDS: Buprenorphine/Naloxone 2/0.5mg FILM 1 FILM SUBLINGUAL (16:33)
[2024-07-04] MEDS: Acetaminophen 325 MG TABLET 650 MG PO (20:39)
[2024-07-05] MEDS: Piperacillin Sodium/Tazobactam 4.5 GM in 0.9 % Sodium Chloride 100 ML IV ×3 (00:15→12:12)
[2024-07-05] MEDS: 0.9 % Sodium Chloride Flush 3 ML SYRINGE IVFLUSH ×4 (00:16→20:12)
[2024-07-05 03:36] VITALS: BP 131/74; PULSE 58; RESP 16; TEMP 37; O2SAT 99
[2024-07-05] MEDS: Omeprazole 20 MG CAPSULE.DR PO (06:36)
[2024-07-05 07:16] VITALS: BP 156/78; PULSE 54; RESP 16; TEMP 36.8; O2SAT 100
[2024-07-05] MEDS: Sucralfate Oral Suspension 1 GM/10 ML ORAL.SUSP PO ×4 (07:55→20:12)
[2024-07-05] MEDS: Nicotine 21 MG PATCH.TD24 TRANSDERMA (09:31)
[2024-07-05] MEDS: PHENobarbitaL 15 MG TABLET PO (09:31)
--- NOTE | 2024-07-05 10:44 | MHC.RECOVRN ---
T/W went to provide support to [id number] after receiving a message that pt requesting to re start suboxone. Upon arrival, pt resting in bed with covers over his head. He did engage in conversation and appeared alert and oriented. Pt's significant other also in the room and initially answering for pt. After speaking directly to pt he declines want to re start suboxone stating I don't want to be on any of that shit . T/W informed pt that if he changed his mind to let his nurse know and we could come back out. Pt verbalized understanding and no further needs communicated at this time T/W available PRN.
[2024-07-05 10:57] VITALS: BP 139/75; PULSE 62; RESP 16; TEMP 36.7; O2SAT 99
[2024-07-05 11:00] LABS: Anion Gap 13 (12-20); Blood Urea Nitrogen 9 mg/dL (9-16); Carbon Dioxide 29 mmol/L (22-29); Chloride 104 mmol/L (96-108); Creatinine Clr Calc Pharmacy 102.4; Estimated Glomerular Filt Rate > 60; Glucose Random 114 mg/dL (60-115); Potassium 3.1 mmol/L (3.3-5.1); Sodium 143 mmol/L (135-145)
--- NOTE | 2024-07-05 11:59 | MHC.CM.PN ---
Per MD, Patient will need VNA; [facility] and CM will follow.
--- NOTE | 2024-07-05 12:06 | MHC.CM.PN ---
Addendum entered by Dulce Taylor 07/05/24 14:29: Per , Patient's dc will be cancelled for today. CM met with Patient and his Girlfriend at bedside; Patient needs to speak with his community CM in the morning (he may be moved from his 4th floor apartment). If Patient's address changes, [facility] will need to be notified.CM will follow. Original Note: Per , Patient will be medically cleared for dc to home today, with services. [facility] accepted Patient and they are aware of today's dc.
[2024-07-05] MEDS: Potassium Chloride ER 20 MEQ TAB.ER.PRT 40 MEQ PO (12:11)
--- NOTE | 2024-07-05 14:05 | P.F2F_ITS ---
Service Date Service Date: 07/05/24 Encounter Date of encounter: 07/05/24 Encounter: Alcohol withdrawal, elevated LFTs, anemia. Reasons for Services Signs and symptoms assessed: Abdominal pain or nausea vomiting or fever or diarrhea or any new symptoms. Reason for senior living: medication management, medication treatment and teach disease management Reason for physical therapy: home safety and mobility, therapeutic exercises, restore joint function, gait/transfer training, assess need for DME, ADL training, energy conservation and other Homebound: Leaving the home is medically contraindicated at this time without the asist of a device and/or another person due th the listed conditions above and below. Reason homebound: weakness related to hospital stay Homebound supporting statement: Patient is generalised weak post hospitlisation -needs help with PT. Certification: Based on the above findings, I certify that this patient is confined to the home and needs intermittent senior living care, physical therapy and/or speech therapy, or continues to need occupational therapy. The patient is under my care, and I have initiated the establishment of the plan of care. The patient will be followed by a physician who will periodically review the plan of care. Time Spent With Patient Time: Total time managing care of this patient today ____ minutes.
[2024-07-05 14:07] LABS: Potassium 3.5 mmol/L (3.3-5.1)
--- NOTE | 2024-07-05 14:07 | P.DS_ITS ---
DS: Providers Provider Date of Service: 07/05/24 Date of admission: 06/29/24 23:38 Date of discharge: 07/05/24 Primary care physician: Unknown Physician Consults: 06/30/24 00:23 Addiction Medicine Provider Routine Consulting Provider: Addiction Covering Reason for consultation: Alcohol and opioid use disorder 06/30/24 06:29 Consult to Gastroenterology Routine Consulting Provider: Dorian Quiñones Reason for consultation: ?GI bleed 06/30/24 19:05 Consult to General Surgery Routine Consulting Provider: [facility] General Surgeons Reason for consultation: ?acute cholecystitis 07/01/24 10:08 Inpt - Recovery Team Routine Comment: Reason for consultation: ANA eval +AUDITC Attending physician on discharge: Eden Vick Discharging clinician: Eden Vick DS: Diagnosis Discharge Diagnosis (1) Elevated LFTs: Status: Acute (2) Hypomagnesemia: Status: Acute DS: Summary Hospital Course Hospital Course: HPI:58-year-old male with pertinent history of alcohol use disorder with history of alcohol withdrawal seizures, tobacco use disorder, chronic subdural hematoma, polysubstance IV drug use disorder who presents to the emergency department after a fall, admitted for alcohol withdrawal, normocytic anemia, and abdominal pain ,elevated LFT: Patient was started on phenobarb protocol, further workup with a MRCP: Found to have choledocholithiasis patient is status post ERCP: Choledocholithiasis, Proximal esophageal rings, status post dilation with the gastroscope, Small hiatal hernia: GI recommended to start on sucralfate, ppi: should avoid all blood thinners, aspirin, and NSAIDs for at least a week. In addition patient has hepatitis C viral load elevated, hemochromatosis testing pending.In addition patient had mild diarrhea: C diff negative, Gi panel negative , fobt negative ,diarrhea resolved. Patient seems to be improved significantly eating better, no nausea vomiting, diarrhea improved significantly as well as abdominal pain. Anemia: Currently patient H&H is stable around 8.4 range, no further bleeding, elevated Iron studies, normal B12 and Folate, and no signs of GI blood loss,ercp-Proximal esophageal rings, status post dilation with the gastroscope:. Patient advised to continue PPIs, sucralfate, avoid blood thinners as above. Patient is to follow-up with GI for outpatient further management of anemia and hepatitis-C( high viral load- [id number] and 6.43log IU/ml),also follow-up outpatient hemochromatosis testing. Choledocholithiasis: Patient is ERCP with sphincterotomy and removal of CBD stones, monitor LFTs outpatient. Currently asymptomatic, Cystic duct/GB filled on IOC going against acute cholecystitis. Bilirubin continues to improve,currently recomeded no cholecystectomy in this patient, patient follow up outpatient. Fall: ct head /cervical spine:The subdural hematoma overlying the anterior left frontal lobe has slightly decreased in size. No acute intracranial abnormality. no new c/o. Hypokalemia repleted and resolved, we will give limited potassium supply: Potassium 10 mEq daily for 6 days. Monitor BMP outpatient. History of polysubstance use disorder: was on subaxone ,seen by Addiction Team -now off subaxone . Patient was strongly advised to abstain from alcohol use. elevated bp/Possible htn: will add amlodipine 2.5 mg po daily. PT recommended home vna/ PT. plan: amlodipine 2.5 mg po daily for elevated bp. Hypokalemia repleted and resolved, we will give limited potassium supply: Potassium 10 mEq daily for 6 days. Monitor BMP outpatient. Patient was strongly advised to abstain from alcohol, addiction Team also talked to him. Patient currently does not want Suboxone also. Continue PPI and sucralfate and follow-up outpatient Dr. Quiñones office: For further management of liver disease as well as hepatitis-C. Monitor CBC and CMP in 1 week with PCP or urgent care discussed with the patient. Advised strongly abstain from alcohol and smoking. Follow-up with surgery outpatient. Also strongly advised if any new symptoms-including abdominal pain or nausea vomiting or diarrhea or fever or any new symptoms-go to nearest emergency room. We discussed with the patient at the bedside with staff present as well as PT, case management staff-he understand above plan and in agreement with the above plan, all question answered, total time spent 40 minute. Time Attestation Total time managing care of this patient today: 40 mintues. Discharge Coordination Time (in mins): 40 min Quality: Safe Use of Opioids Does Pt have an Active Cancer Diagnosis on the Problem List?: No Quality: Stroke Does the patient have a stroke diagnosis?: No Physical Exam Vital Signs: Vital Signs: Last Vital Signs Temp 98.0 F 07/05/24 10:57 Pulse 62 07/05/24 10:57 Resp 16 07/05/24 10:57 BP 139/75 07/05/24 10:57 Pulse Ox 99 07/05/24 10:57 O2 Del Method Room Air 07/05/24 10:57 O2 Flow Rate 6 07/02/24 17:37 BMI result Body Mass Index 22.3 Appearance: Alert.? Oriented X3.? not in distress.? cvs: [id number], [id number] . res: clear to auscultation ,no rhonchii or wheezing abd: soft,no rebound or guarding ,nt, bs present. ext pulses present , no cyanosis . neuro: axo3 , nonfocal. DS: Data Data Completed and Pending Completed studies during hospitalization [Text1]: Procedures Detoxification Services for Substance Abuse Treatment (05/09/24) Labs on day of discharge: Laboratory Results - last 24 hr 07/05/24 07/05/24 10:34 13:50 Sodium 143 Potassium 3.1 L 3.5 Chloride 104 Carbon Dioxide 29 Anion Gap 13 BUN 9 Creatinine 0.82 Estim Creat Clear Calc 102.4 Estimated GFR > 60 Random Glucose 114 Calcium 8.0 L Imaging Chest x-ray: Radiologist's impression: ITS Impressions Abdomen Ultrasound 06/30/24 10:22 IMPRESSION: 1. Findings highly suggestive of acute cholecystitis. There are gallbladder stones, echogenic bile, mild wall thickening, small amounts of pericholecystic fluid and a positive sonographic Wood sign. 2. Mild hepatomegaly with diffusely increased hepatic echogenicity suggestive of steatosis. 3. There is mild intra and extrahepatic biliary dilatation, with the common bile duct measuring up to 15 mm proximally. Common duct obstruction is not excluded. 4. Mild caliectasis of the right kidney. Findings communicated to Dr. Lucio via secure text at 11:15 AM, 06/30/2024. Guidance Fluoroscopy 07/02/24 15:31 IMPRESSION: Fluoroscopy during procedure. Please see procedure report for additional information. abd us: 1. Findings highly suggestive of acute cholecystitis. There are gallbladder stones, echogenic bile, mild wall thickening, small amounts of pericholecystic fluid and a positive sonographic Wood sign. 2. Mild hepatomegaly with diffusely increased hepatic echogenicity suggestive of steatosis. 3. There is mild intra and extrahepatic biliary dilatation, with the common bile duct measuring up to 15 mm proximally. Common duct obstruction is not excluded. 4. Mild caliectasis of the right kidney. Discharge Plan Discharge Anticipated Discharge Date/Time: 07/05/24 13:33 Patient Disposition: Home Health Service Discharge Diagnosis: Alcohol withdrawal, choledocholithiasis, hepatitis-C. Referrals: [facility] [Outside] - 1 Week Physician,Unknown J [Primary Care Provider] - 1 Week Discharge Medications: New lidocaine [Lidocaine Pain Relief] 4 % Adhesive Patch,Medicated 1 patch transdermal DAILY Qty: 7 0RF Protocol: Apply to: Apply to: affected area sucralfate 100 mg/mL Suspension 1 g PO QIDACHS Qty: 360 0RF nicotine 21 mg/24 hr Patch 24 Hour 21 mg transdermal DAILY Qty: 7 0RF omeprazole 20 mg Capsule,Delayed Release(Dr/Ec) 20 mg PO DAILY@0630 Qty: 90 0RF thiamine HCl (vitamin B1) 100 mg tablet 50 mg PO DAILY Qty: 90 0RF folic acid 1 mg tablet 1 mg PO DAILY Qty: 90 0RF trazodone 50 mg tablet 25 mg PO DAILY Qty: 10 0RF amlodipine 2.5 mg Tablet 2.5 mg PO DAILY Qty: 90 0RF Protocol: Hold for SBP< HOLD for SBP < : 90 potassium chloride 10 mEq capsule, extended release 10 meq PO DAILY Qty: 6 0RF Discontinued buprenorphine-naloxone [Suboxone] 4-1 mg film 1 film buccal Q24H Qty: 28 0RF Discharge Orders: Discharge Order (Routine); Ordered 07/07/24 Ordered By: Eden Vick Diet: Advance to usual diet Activity on Discharge: As tolerated Stand Alone Forms: Patient Portal Discharge page Print Language: Unable To Collect Care Plan Goals: 58-year-old male with pertinent history of alcohol use disorder with history of alcohol withdrawal seizures, tobacco use disorder, chronic subdural hematoma, polysubstance IV drug use disorder who presents to the emergency department after a fall, admitted for alcohol withdrawal, normocytic anemia, and abdominal pain ,elevated LFT: Patient was started on phenobarb protocol, further workup with a MRCP: Found to have choledocholithiasis patient is status post ERCP: Choledocholithiasis, Proximal esophageal rings, status post dilation with the gastroscope, Small hiatal hernia: GI recommended to start on sucralfate, ppi: should avoid all blood thinners, aspirin, and NSAIDs for at least a week. In addition patient has hepatitis C viral load elevated, hemochromatosis testing pending.In addition patient had mild diarrhea: C diff negative, Gi panel negative , fobt negative ,diarrhea resolved. Patient seems to be improved significantly eating better, no nausea vomiting, diarrhea improved significantly as well as abdominal pain. Anemia: Currently patient H&H is stable around 8.4 range, no further bleeding, elevated Iron studies, normal B12 and Folate, and no signs of GI blood loss.. Patient advised to continue PPIs, sucralfate, avoid blood thinners as above. Patient is to follow-up with GI for outpatient further management of anemia and hepatitis-C, also follow-up outpatient hemochromatosis testing. Choledocholithiasis: Patient is ERCP with sphincterotomy and removal of CBD stones, monitor LFTs outpatient. Currently asymptomatic, Cystic duct/GB filled on IOC going against acute cholecystitis. Bilirubin continues to improve,currently recomeded no cholecystectomy in this patient, patient follow up outpatient. Fall: ct head /cervical spine:The subdural hematoma overlying the anterior left frontal lobe has slightly decreased in size. No acute intracranial abnormality. no new c/o. History of polysubstance use disorder: was on subaxone ,seen by Addiction Team -now off subaxone . Patient was strongly advised to abstain from alcohol use. PT recommended home vna/ PT. Health Concerns: amlodipine 2.5 mg po daily for elevated bp. Hypokalemia repleted and resolved, we will give limited potassium supply: Potassium 10 mEq daily for 6 days. Monitor BMP outpatient. Patient was strongly advised to abstain from alcohol, addiction Team also talked to him. Patient currently does not want Suboxone also. Continue PPI and sucralfate and follow-up outpatient Dr. Quiñones office: For further management of liver disease as well as hepatitis-C. Monitor CBC and CMP in 1 week with PCP or urgent care discussed with the patient. Advised strongly abstain from alcohol and smoking. Follow-up with surgery outpatient. Also strongly advised if any new symptoms-including abdominal pain or nausea vomiting or diarrhea or fever or any new symptoms-go to nearest emergency room. Plan of Treatment: As above. Assessment: As above.
--- NOTE | 2024-07-05 14:33 | P.PNIM_ITS ---
Subjective Subjective Date of Service: 07/05/24 Interval History: no new c/o Review of Systems 1 episode of loose stool Review of Systems: Yes all other systems are reviewed and are negative Physical Exam 2 Vital Signs: Vital Signs: Last Vital Signs Temp 98.0 F 07/05/24 10:57 Pulse 62 07/05/24 10:57 Resp 16 07/05/24 10:57 BP 139/75 07/05/24 10:57 Pulse Ox 99 07/05/24 10:57 O2 Del Method Room Air 07/05/24 10:57 O2 Flow Rate 6 07/02/24 17:37 BMI result Body Mass Index 22.3 Appearance: Alert.? Oriented X3.? cvs: [id number], [id number]. res: air entry fair , no rales or wheezing. abd: mild diffuse pain,nt, bs present. ext pulses present , no cyanosis. neuro: axo3 , nonfocal Objective Data Active Medications Acetaminophen (Acetaminophen 325 Mg Tablet) 650 mg PO Q6H PRN PRN Reason: Pain, Mild 1-3,fever,headache Last Admin: 07/04/24 20:39 Dose: 650 mg Documented By: MATTHEW Calcium Carbonate (Calcium Carbonate 750 Mg Tab.Chew) 750 mg PO Q4H PRN PRN Reason: Heartburn Piperacillin Sod/Tazobactam (Sod 4.5 gm/ Sodium Chloride) 100 mls @ 200 mls/hr IV Q6H [facility] Last Infusion: 07/05/24 12:42 Dose: Infused Documented By: JANELL Lidocaine (Lidocaine 4 % Patch Adh..Patch) 1 patch TRANSDERMA DAILY [facility]; Protocol Last Admin: 07/05/24 09:36 Dose: Not Given Documented By: JANELL Non-Admin Reason: Patient Refused Magnesium Hydroxide (Milk Of Magnesia 30 Ml Oral.Susp) 30 ml PO DAILY PRN PRN Reason: Constipation Melatonin (Melatonin 3 Mg Tablet) 6 mg PO BEDTIME PRN PRN Reason: Insomnia Last Admin: 07/01/24 21:18 Dose: 6 mg Documented By: NEHEMIAS Naloxone HCl (Naloxone Hcl 0.4 Mg/Ml Vial) 0.04 mg IVPUSH Q5M PRN PRN Reason: Excessive sedation or RR < 8 Nicotine (Nicotine 21 Mg Patch.Td24) 21 mg TRANSDERMA DAILY [facility] Last Admin: 07/05/24 09:31 Dose: 21 mg Documented By: JANELL Omeprazole (Omeprazole 20 Mg Capsule.Dr) 20 mg PO DAILY@0630 [facility] Last Admin: 07/05/24 06:36 Dose: 20 mg Documented By: KODY Ondansetron HCl (Ondansetron Hcl 4 Mg/2 Ml Vial) 4 mg IVPUSH Q8H PRN PRN Reason: Nausea and Vomiting Pharmacy Consult (Consult Rx Etoh Phenob Im/Po) 1 each MISCELLANE ONCE PRN; Protocol PRN Reason: Consult order Phenobarbital (Phenobarbital 15 Mg Tablet) 15 mg PO DAILY [facility]; Protocol Stop: 07/06/24 09:01 Last Admin: 07/05/24 09:31 Dose: 15 mg Documented By: JANELL Sodium Chloride (0.9 % Sodium Chloride Flush 3 Ml Syringe) 3 ml IVFLUSH QSHIFT [facility] Last Admin: 07/05/24 07:57 Dose: 3 ml Documented By: JANELL Sucralfate (Sucralfate Oral Suspension 1 Gm/10 Ml Oral.Susp) 1 gm PO QIDACHS [facility] Last Admin: 07/05/24 12:10 Dose: 1 gm Documented By: JANELL Labs 07/04/24 08:02 07/05/24 13:50 Labs: Laboratory Results - last 24 hr 07/05/24 10:34 Anion Gap 13 Estim Creat Clear Calc 102.4 Estimated GFR > 60 Random Glucose 114 Calcium 8.0 L Assessment and Plan (1) Hypomagnesemia: Status: Acute Assessment and Plan: 58-year-old male with pertinent history of alcohol use disorder with history of alcohol withdrawal seizures, tobacco use disorder, chronic subdural hematoma, polysubstance IV drug use disorder who presents to the emergency department after a fall. Alcohol use disorder mild tremer /anxious continue pheno. Continue thiamine Fall in the setting of above. Choledocholithiasis: LFTs somewhat improving but still has right upper quadrant pain Continue Zosyn, mrcp: describes a distal CBD stone. Patient's s/pERCP,gi -currently recommended monitor H&H, continue PPI and currently no need for EGD since the patient is occult blood negative, iron studies s/p ercp: Check Hep C viral load re: + Hep C antibody. If stable on Saturday, 07/03, and there are no plans for surgery, I would recommend advancing him to a soft diet. elevated Iron studies, normal B12 and Folate, and no signs of GI blood loss. Surgery evaluation-currently deffer surgery -Cystic duct/GB filled on IOC going against acute cholecystitis. Bilirubin continues to improve. Would hold off on cholecystectomy in this patient stopped antibiotics Normocytic anemia: denies melena or hematochezia. Stool occult negative. given 1prbc plan: continue IV Protonix, soft diet moniter h/h: 8.1/24.5 continue Carafate suspension and po omeprazole. avoid all blood thinners, aspirin, and NSAIDs for at least a week. CCY as per the surgical service. Hypomagnesemia/hypokalemia due to alcohol use: added po and iv potassium History of polysubstance use disorder: was on subaxone ,now off Addiction Team as above Subdural hematoma: Chronic and stable Tobacco use disorder: Ordered nicotine patch DVT prophylaxis: Mechanical. Defer Lovenox in the setting of subdural hematoma. ongoing need:need social work d/w ,says can not go due to lives on 4th floor. (2) Anemia: Status: Acute (3) Elevated LFTs: Status: Acute Quality Stroke Does the patient have a stroke diagnosis?: No VTE Prior VTE?: No VTE Risk Level:: Medical - moderate - high VTE Device Contraindication: N/A - Device Ordered VTE Drug Contraindication: Treatment Not Indicated
[2024-07-05 15:58] VITALS: BP 162/82; PULSE 59; RESP 18; TEMP 37.2; O2SAT 99
--- NOTE | 2024-07-05 16:05 | PC.NURSE ---
bp 162/82 manually, provider notified, no orders received \, pt denies any cp, dizziness or left arm pain
--- NOTE | 2024-07-05 17:35 | P.PNGI_ITS ---
Subjective Subjective Date of Service: 07/05/24 Interval History: Significant other, Regina, is present. Patient feels better from a GI satndpoint. Denies any abdominal pain, dysphagia, or N/V. Tolerating diet. Having some loose stools but Cdiff is negative Critical Care Time (minutes): 0 Physical Exam 2 Vital Signs: Vital Signs: Last Vital Signs Temp 99.0 F 07/05/24 15:58 Pulse 59 07/05/24 15:58 Resp 18 07/05/24 15:58 BP 162/82 H 07/05/24 15:58 Pulse Ox 99 07/05/24 15:58 O2 Del Method Room Air 07/05/24 15:58 O2 Flow Rate 6 07/02/24 17:37 BMI result Body Mass Index 22.3 Const: General: cooperative, comfortable, no acute distress, well developed and awake HEENT: Other: Anicteric GI: Other: Abd-Nondistended, +BS, soft, NT Objective Data Labs 07/04/24 08:02 07/05/24 13:50 Labs: Laboratory Results - last 24 hr 07/05/24 07/05/24 10:34 13:50 Sodium 143 Potassium 3.1 L 3.5 Chloride 104 Carbon Dioxide 29 Anion Gap 13 BUN 9 Creatinine 0.82 Estim Creat Clear Calc 102.4 Estimated GFR > 60 Random Glucose 114 Calcium 8.0 L Procedures Date of Service Date of Service: 07/05/24 Progress Note: A&P Assessment and plan (1) Alcoholic liver disease: Status: Acute (2) Chronic hepatitis C: Status: Acute (3) Choledocholithiasis: Status: Acute Assessment and Plan: Imp/Plan: 1. Chronic liver disease from EtOH and Hep C. Presently his LFT's are improving. He does not need any specific treatment for the EtOH hepatitis at this time. I reviewed this in detail with the patient and his significant other today. I told him of the need to avoid alcohol shelter. I did advise him to F/U with his PCP re: the chronic Hep C and need for treatment. He reports being followed at [facility]. I told him to get treatment through his PCP or be referred to GI/Hepatology if need be. He does have Hereditary Hemochromatosis genetics pending due to the elevated ferritin as well, although I think the high Iron levels are due to the acute EtOH hepatitis on admission. His iron studies should be repeated by his PCP on follow up with them. 2. Choledocholithiasis-stable and resolved after ERCP. Surgery has deferred on CCY due to his comorbidities, but I did advise him to come back to ER for any recurrent abdominal pain, jaundice, etc. The patient and his significant other understood and were comfortable with this plan. Time Spent With Patient Time: Total time managing care of this patient today ____ minutes. Quality Stroke Does the patient have a stroke diagnosis?: No VTE Prior VTE?: No VTE Risk Level:: Medical - moderate - high VTE Device Contraindication: N/A - Device Ordered VTE Drug Contraindication: Treatment Not Indicated
[2024-07-05 20:00] VITALS: BP 165/80; PULSE 60; RESP 20; TEMP 37.1; O2SAT 100
[2024-07-05 23:42] VITALS: BP 152/83; PULSE 56; RESP 20; TEMP 37.3; O2SAT 100
[2024-07-06 02:55] VITALS: BP 149/79; PULSE 60; RESP 20; TEMP 36.9; O2SAT 100
[2024-07-06] MEDS: Omeprazole 20 MG CAPSULE.DR PO (05:42)
[2024-07-06 07:21] VITALS: BP 157/85; PULSE 60; RESP 18; TEMP 36.4; O2SAT 97
[2024-07-06 07:30] LABS: Alanine Aminotransferase 19 U/L (0-40); Albumin Level 2.9 g/dL (3.5-5.0); Alkaline Phosphatase 113 U/L (39-117); Aspartate Amino Transferase 39 U/L (5-37); Bilirubin Direct 1.6 mg/dL (0.0-0.5); Bilirubin Total 2.2 mg/dL (0.0-1.0)
[2024-07-06] MEDS: PHENobarbitaL 15 MG TABLET PO (07:58)
[2024-07-06] MEDS: Nicotine 21 MG PATCH.TD24 TRANSDERMA (07:58)
[2024-07-06] MEDS: Sucralfate Oral Suspension 1 GM/10 ML ORAL.SUSP PO ×4 (07:58→21:55)
[2024-07-06] MEDS: 0.9 % Sodium Chloride Flush 3 ML SYRINGE IVFLUSH ×3 (08:00→21:55)
[2024-07-06 12:16] LABS: Adenovirus F 40/41 Not Detected (Not Detect.); Astrovirus Not Detected (Not Detect.); Campylobacter Not Detected (Not Detect.); Cryptosporidium Not Detected (Not Detect.); Cyclospora cayetanensis Not Detected (Not Detect.); E. coli EAEC Not Detected (Not Detect.); E. coli EPEC Not Detected (Not Detect.); E. coli ETEC Not Detected (Not Detect.); E. coli STEC Not Detected (Not Detect.); Entamoeba histolytica Not Detected (Not Detect.); Giardia lamblia Not Detected (Not Detect.); Norovirus GI/GII Not Detected (Not Detect.); Plesiomonas shigelloides Not Detected (Not Detect.); Rotavirus A Not Detected (Not Detect.); Salmonella Not Detected (Not Detect.); Sapovirus Not Detected (Not Detect.); Shigella sp./EIEC Not Detected (Not Detect.); Vibrio Not Detected (Not Detect.); Vibrio Cholerae Not Detected (Not Detect.); Yersinia enterocolitica Not Detected (Not Detect.)
[2024-07-06 13:12] LABS: Hematocrit 24.3 % (42.0-52.0); Hemoglobin 8.4 g/dl (14.0-18.0)
--- NOTE | 2024-07-06 15:31 | MHC.CM.PN ---
DC is on hold tday. Patient states that he is not feeling well. He continues with abdominal pain. Patient will be monitored overnight. DP home with services via BLS.
[2024-07-06 15:35] VITALS: BP 157/85; PULSE 60; O2SAT 97
[2024-07-06 15:48] VITALS: BP 162/88; PULSE 55; RESP 18; TEMP 36.7; O2SAT 99
--- NOTE | 2024-07-06 17:43 | HO.PM.IMPN ---
Subjective Subjective Date of Service: 07/06/24 Interval History: abd pain Review of Systems Patient feeling better, abdominal pain improving, tolerating diet Review of Systems: Yes all other systems are reviewed and are negative Physical Exam Vital Signs: Vital Signs: Last Vital Signs Temp 98.1 F 07/06/24 15:48 Pulse 55 07/06/24 15:48 Resp 18 07/06/24 15:48 BP 162/88 H 07/06/24 15:48 Pulse Ox 99 07/06/24 15:48 O2 Del Method Room Air 07/06/24 15:48 O2 Flow Rate 6 07/02/24 17:37 BMI result Body Mass Index 22.3 Appearance: Alert.? Oriented X3.? cvs: rrr, [id number]. res: air entry fair , no rales or wheezing. abd: mild diffuse pain,nt, bs present. ext pulses present , no cyanosis. neuro: axo3 , nonfocal Objective Data Active Medications Acetaminophen (Acetaminophen 325 Mg Tablet) 650 mg PO Q6H PRN PRN Reason: Pain, Mild 1-3,fever,headache Last Admin: 07/04/24 20:39 Dose: 650 mg Documented By: MATTHEW Calcium Carbonate (Calcium Carbonate 750 Mg Tab.Chew) 750 mg PO Q4H PRN PRN Reason: Heartburn Lidocaine (Lidocaine 4 % Patch Adh..Patch) 1 patch TRANSDERMA DAILY [facility]; Protocol Last Admin: 07/06/24 08:00 Dose: Not Given Documented By: BRISEIDA Non-Admin Reason: Patient Refused Magnesium Hydroxide (Milk Of Magnesia 30 Ml Oral.Susp) 30 ml PO DAILY PRN PRN Reason: Constipation Melatonin (Melatonin 3 Mg Tablet) 6 mg PO BEDTIME PRN PRN Reason: Insomnia Last Admin: 07/01/24 21:18 Dose: 6 mg Documented By: NEHEMIAS Naloxone HCl (Naloxone Hcl 0.4 Mg/Ml Vial) 0.04 mg IVPUSH Q5M PRN PRN Reason: Excessive sedation or RR < 8 Nicotine (Nicotine 21 Mg Patch.Td24) 21 mg TRANSDERMA DAILY [facility] Last Admin: 07/06/24 07:58 Dose: 21 mg Documented By: BRISEIDA Omeprazole (Omeprazole 20 Mg Capsule.Dr) 20 mg PO DAILY@0630 [facility] Last Admin: 07/06/24 05:42 Dose: 20 mg Documented By: WILMAR Ondansetron HCl (Ondansetron Hcl 4 Mg/2 Ml Vial) 4 mg IVPUSH Q8H PRN PRN Reason: Nausea and Vomiting Pharmacy Consult (Consult Rx Etoh Phenob Im/Po) 1 each MISCELLANE ONCE PRN; Protocol PRN Reason: Consult order Sodium Chloride (0.9 % Sodium Chloride Flush 3 Ml Syringe) 3 ml IVFLUSH QSHIFT [facility] Last Admin: 07/06/24 08:00 Dose: 3 ml Documented By: BRISEIDA Sucralfate (Sucralfate Oral Suspension 1 Gm/10 Ml Oral.Susp) 1 gm PO QIDACHS [facility] Last Admin: 07/06/24 11:51 Dose: 1 gm Documented By: BRISEIDA Labs 07/06/24 12:56 07/05/24 13:50 Labs: Laboratory Results - last 24 hr 07/05/24 07/06/24 16:30 07:01 Total Bilirubin 2.2 H Direct Bilirubin 1.6 H AST 39 H ALT 19 Alkaline Phosphatase 113 Total Protein 6.0 L Albumin 2.9 L Stl C. cayetanensis PCR Not Detected Stool Rotavirus A PCR Not Detected Stl Adenov F 40/41 PCR Not Detected Stool Astrovirus (PCR) Not Detected Stool Campylobacter PCR Not Detected Stool Cryptosporidium PCR Not Detected Stl Sh Tox Pr E STEC PCR Not Detected Stool E coli O157 PCR Not applicable Stl Enterotoxigenic E PCR Not Detected Stool EPEC (PCR) Not Detected Stool EAEC (PCR) Not Detected Stl E. histolytica PCR Not Detected Stool Giardia Lamblia PCR Not Detected Stl P. shigelloides PCR Not Detected Stool Salmonella PCR Not Detected Stool Sapovirus (PCR) Not Detected Stl Shigella/EIEC PCR Not Detected St Y.enterocolitica PCR Not Detected Stool Vibrio (PCR) Not Detected Stl Vibrio cholerae PCR Not Detected Stl Norovirus GI/GII PCR Not Detected Assessment and Plan (1) Anemia: Status: Acute (2) Elevated LFTs: Status: Acute Assessment and Plan: 58-year-old male with pertinent history of alcohol use disorder with history of alcohol withdrawal seizures, tobacco use disorder, chronic subdural hematoma, polysubstance IV drug use disorder who presents to the emergency department after a fall. Alcohol use disorder mild tremer /anxious continue pheno. Continue thiamine Fall in the setting of above. Choledocholithiasis: LFTs somewhat improving but still has right upper quadrant pain off antibiotics mrcp: describes a distal CBD stone. Patient's s/pERCP,gi -currently recommended monitor H&H, continue PPI and currently no need for EGD since the patient is occult blood negative, iron studies s/p ercp: Check Hep C viral load re: + Hep C antibody. If stable on Saturday, 07/03, and there are no plans for surgery, I would recommend advancing him to a soft diet. elevated Iron studies, normal B12 and Folate, and no signs of GI blood loss. Surgery evaluation-currently deffer surgery -Cystic duct/GB filled on IOC going against acute cholecystitis. Bilirubin continues to improve. Would hold off on cholecystectomy in this patient Normocytic anemia: denies melena or hematochezia. Stool occult negative. given 1prbc plan: continue IV Protonix, soft diet moniter h/h: 8.1/24.5 continue Carafate suspension and po omeprazole. avoid all blood thinners, aspirin, and NSAIDs for at least a week. CCY as per the surgical service. Hypomagnesemia/hypokalemia due to alcohol use: added po and iv potassium History of polysubstance use disorder: was on subaxone ,now off Addiction Team as above Subdural hematoma: Chronic and stable Tobacco use disorder: Ordered nicotine patch DVT prophylaxis: Mechanical. Defer Lovenox in the setting of subdural hematoma. ongoing need:abd pain ,anemia,electrolytic abnormalities : need h/h monitering and lft's and moniter clinically -will consider discharge planning in am d/w patient in detail with nursing staff and case management ,pt staff present Quality Stroke Does the patient have a stroke diagnosis?: No VTE Prior VTE?: No VTE Risk Level:: Medical - moderate - high VTE Device Contraindication: N/A - Device Ordered VTE Drug Contraindication: Treatment Not Indicated
[2024-07-06 19:39] VITALS: BP 149/78; PULSE 73; RESP 18; TEMP 37.1; O2SAT 99
[2024-07-06 23:01] VITALS: BP 159/82; PULSE 60; RESP 18; TEMP 37; O2SAT 100
[2024-07-07 03:12] VITALS: BP 151/79; PULSE 55; RESP 18; TEMP 36.8; O2SAT 97
[2024-07-07] MEDS: Omeprazole 20 MG CAPSULE.DR PO (06:04)
[2024-07-07] MEDS: Sucralfate Oral Suspension 1 GM/10 ML ORAL.SUSP PO ×2 (06:04→11:10)
[2024-07-07 08:46] LABS: Alanine Aminotransferase 18 U/L (0-40); Alkaline Phosphatase 116 U/L (39-117); Anion Gap 13 (12-20); Aspartate Amino Transferase 34 U/L (5-37); Bilirubin Total 2.2 mg/dL (0.0-1.0); Blood Urea Nitrogen 14 mg/dL (9-16); Calcium 8.3 mg/dL (8.4-10.2); Carbon Dioxide 27 mmol/L (22-29); Chloride 105 mmol/L (96-108); Creatinine Clr Calc Pharmacy 107.7; Estimated Glomerular Filt Rate > 60; Glucose Random 93 mg/dL (60-115); Sodium 142 mmol/L (135-145); Total Protein 6.3 g/dL (6.5-8.0)
[2024-07-07] MEDS: Potassium Chloride ER 20 MEQ TAB.ER.PRT 40 MEQ PO (09:16)
[2024-07-07] MEDS: Nicotine 21 MG PATCH.TD24 TRANSDERMA (09:21)
[2024-07-07] MEDS: Lidocaine 4 % Patch ADH..PATCH 1 PATCH TRANSDERMA (09:21)
[2024-07-07] MEDS: 0.9 % Sodium Chloride Flush 3 ML SYRINGE IVFLUSH (09:22)
[2024-07-07] MEDS: traZODone HCL 25 MG HALFTAB PO (11:10)
[2024-07-07 11:23] VITALS: BP 151/79; PULSE 55; O2SAT 97
[2024-07-07 13:38] LABS: Potassium 3.3 mmol/L (3.3-5.1)
== END 2024-07-07 16:06 | disposition home health service (06) ==
LOC: HO.ED 23:38 → HO.EDOVER 23:43 → HO.IMC 06-30 23:57
PROVIDERS: Internal Medicine; Admitting Provider Student in an Organized Health Care Education/Training Program; Emergency Provider Emergency Medicine; Visit Provider Internal Medicine
PROC: 0F798ZZ Dilation of Common Bile Duct, Via Natural or Artificial Opening Endoscopic (ICD-10-PCS; CPT 43260; principal; 2024-07-02 15:00)
DX: K80.50 Calculus of bile duct without cholangitis or cholecystitis without obstruction (principal); I62.03 Nontraumatic chronic subdural hemorrhage; K70.10 Alcoholic hepatitis without ascites; D63.8 Anemia in other chronic diseases classified elsewhere; F10.229 Alcohol dependence with intoxication, unspecified; F10.239 Alcohol dependence with withdrawal, unspecified; E87.6 Hypokalemia; K46.9 Unspecified abdominal hernia without obstruction or gangrene; F17.210 Nicotine dependence, cigarettes, uncomplicated; B18.2 Chronic viral hepatitis C; F11.20 Opioid dependence, uncomplicated; E83.42 Hypomagnesemia; Z71.6 Tobacco abuse counseling; Y90.8 Blood alcohol level of 240 mg/100 ml or more; Z79.899 Other long term (current) drug therapy
CPT/HCPCS: 36415; 70450; 72125; 74181; 76705; 80048; 80053; 80076; 80307; 82105; 82272; 82607; 82728; 82746; 83540; 83735; 84132; 85014; 85018; 85025; 85610; 86704; 86706; 86709; 86803; 86850; 86900; 86901; 86923; 87340; 87493; 87507; 87522; 93005; 97116; 97162; 99285; J0131; J1100; J1610; J2003; J2371; J2405; J2470; J2543; J2560; J2704; J3010; J3411; J3475; J3480; J7120; P9016; Q9967; S9485

== ENCOUNTER → 2024-06-29 21:30 | Outpatient (BNV) | payer OTHER, SELFPAY | PROVIDERS: Admitting Provider Student in an Organized Health Care Education/Training Program; Emergency Provider Emergency Medicine; Visit Provider Student in an Organized Health Care Education/Training Program | DX: S19.9XXA Unspecified injury of neck, initial encounter (principal); S06.5X0A Traumatic subdural hemorrhage without loss of consciousness, initial encounter | CPT/HCPCS: 70450; 72125 ==

== ENCOUNTER 2024-06-29 23:38 | Outpatient (BNV) | payer OTHER, SELFPAY | END 2024-06-29 23:39 | PROVIDERS: Admitting Provider Student in an Organized Health Care Education/Training Program; Emergency Provider Emergency Medicine; Visit Provider Internal Medicine Cardiovascular Disease | DX: I49.1 Atrial premature depolarization (principal) | CPT/HCPCS: 93010 ==

== ENCOUNTER 2024-06-29 23:38 | Outpatient (BNV) | payer OTHER, SELFPAY | END 2024-07-01 20:10 | PROVIDERS: Admitting Provider Student in an Organized Health Care Education/Training Program; Emergency Provider Emergency Medicine; Visit Provider Radiology Diagnostic Radiology | DX: K80.70 Calculus of gallbladder and bile duct without cholecystitis without obstruction (principal) | CPT/HCPCS: 74181 ==

== ENCOUNTER 2024-06-29 23:38 | Outpatient (BNV) | payer OTHER, SELFPAY | END 2024-06-30 10:22 | PROVIDERS: Admitting Provider Student in an Organized Health Care Education/Training Program; Emergency Provider Emergency Medicine; Visit Provider Radiology Diagnostic Radiology | DX: R74.01 Elevation of levels of liver transaminase levels (principal) | CPT/HCPCS: 76705 ==

== ENCOUNTER → 2024-06-29 23:38 | Outpatient (BNV) | payer OTHER, SELFPAY | PROVIDERS: Admitting Provider Student in an Organized Health Care Education/Training Program; Emergency Provider Emergency Medicine; Visit Provider Surgery | DX: R79.89 Other specified abnormal findings of blood chemistry (principal) | CPT/HCPCS: 99232 ==

== ENCOUNTER → 2024-06-29 23:38 | Outpatient (BNV) | payer OTHER, SELFPAY | PROVIDERS: Admitting Provider Student in an Organized Health Care Education/Training Program; Emergency Provider Emergency Medicine; Visit Provider Nurse Practitioner Psychiatric/Mental Health | DX: F10.90 Alcohol use, unspecified, uncomplicated (principal); F11.90 Opioid use, unspecified, uncomplicated | CPT/HCPCS: 99232; 99499 ==

== ENCOUNTER → 2024-06-29 23:38 | Outpatient (BNV) | payer OTHER, SELFPAY | PROVIDERS: Admitting Provider Student in an Organized Health Care Education/Training Program; Emergency Provider Emergency Medicine; Visit Provider Student in an Organized Health Care Education/Training Program | DX: F10.90 Alcohol use, unspecified, uncomplicated (principal); R79.89 Other specified abnormal findings of blood chemistry; D64.9 Anemia, unspecified; E83.42 Hypomagnesemia | CPT/HCPCS: 99223; 99231; 99499 ==

== ENCOUNTER 2024-08-01 12:32 | Emergency (ER) | payer OTHER, SELFPAY ==
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
[2024-08-01 12:52] VITALS: BP 118/90; BP 142/91; PULSE 83; PULSE 94; RESP 16; O2SAT 97; O2SAT 98; BMI 26.3
--- NOTE | 2024-08-01 13:03 | ECG_ITS ---
Test Reason : FALL Blood Pressure : */* mmHG Vent. Rate : 76 BPM Atrial Rate : 76 BPM P-R Int : 160 ms QRS Dur : 88 ms QT Int : 408 ms P-R-T Axes : 105 193 103 degrees QTcB Int : 459 ms Suspect limb lead reversal, interpretation assumes no reversal Sinus rhythm with Premature atrial complexes Right superior axis deviation Cannot rule out Anteroseptal infarct , age undetermined Abnormal ECG When compared with ECG of 29-Jun-2024 23:56, QRS axis Shifted left Minimal criteria for Anteroseptal infarct are now Present T wave inversion now evident in Anterior leads Nonspecific T wave abnormality, improved in Lateral leads Referred By: Thai Muñoz Electronically Signed By: EZEQUIEL MONGE MD
[2024-08-01 13:12] VITALS: BP 114/59; PULSE 121; RESP 18; TEMP 37.1; O2SAT 96
[2024-08-01] MEDS: LORazepam 1 MG TABLET 2 MG PO (13:17)
[2024-08-01 13:49] LABS: MANUAL DIFF FLAG NO
[2024-08-01 13:50] LABS: Amphetamine Screen Urine Not Detected (Not Detect); Barbiturates, Urine POSITIVE (Not Detect); Benzodiazepines Screen Urine Not Detected (Not Detect); Buprenorphine Scr Not Detected (Not Detect); Cannabinoid Screen Urine Not Detected (Not Detect); Cocaine Screen Urine POSITIVE (Not Detect); Fentanyl, urine Not Detected (Not Detect); Methadone Screen, Urine Not Detected (Not Detect); Opiate Screen Urine Not Detected (Not Detect); Oxycodone Screen Urine Not Detected (Not Detect); Phencyclidine Screen Urine Not Detected (Not Detect)
[2024-08-01 14:00] LABS: INTERNATIONAL NORM RATIO 0.9 (0.9-1.1); Prothrombin Time 10.3 SEC (10.9-12.4)
[2024-08-01 14:01] LABS: Basophils Percent Auto 0.4 % (0-2); Eosinophils Percent Auto 0.6 % (0-4); Hematocrit 34.6 % (42.0-52.0); Hemoglobin 11.9 g/dl (14.0-18.0); Imm Gran Abs Auto 0.01 X10*3/uL (0.00-0.03); Imm Gran Pct Auto 0.2 % (0.0-0.4); Lymphocytes Absolute Auto 2.7 X10*3/uL (1.2-4.9); Lymphocytes Percent Auto 59.1 % (20-40); Mean Corpuscular HGB Conc 34.4 g/dl (31.0-36.0); Mean Corpuscular Hemoglobin 30.6 pg (27.0-33.0); Mean Corpuscular Volume 88.9 fL (80.0-98.0); Mean Platelet Volume 9.6 fL (9.4-12.4); Monocytes Absolute Auto 0.5 X10*3/uL (0.1-1.2); Monocytes Percent Auto 11.2 % (2-11); Neutrophils Absolute Auto 1.3 x10*3/uL (2.0-8.3); Neutrophils Percent Auto 28.5 % (45-73); Platelet Count 54 X10*3/uL (160-400); Red Blood Count 3.89 X10*6/uL (4.60-5.80); Red Cell Distribution Width 14.2 % (11.0-16.0); White Blood Count 4.6 X10*3/uL (4.8-10.8)
[2024-08-01 14:33] LABS: Alanine Aminotransferase 161 U/L (0-40); Albumin Level 4.2 g/dL (3.5-5.0); Alkaline Phosphatase 94 U/L (39-117); Anion Gap 19 (12-20); Aspartate Amino Transferase 279 U/L (5-37); Bilirubin Direct 1.2 mg/dL (0.0-0.5); Bilirubin Total 1.9 mg/dL (0.0-1.0); Blood Urea Nitrogen 14 mg/dL (9-16); Calcium 8.7 mg/dL (8.4-10.2); Carbon Dioxide 25 mmol/L (22-29); Chloride 106 mmol/L (96-108); Creatinine Clr Calc Pharmacy 95.3; Estimated Glomerular Filt Rate > 60; Ethanol 360 mg/dL; Glucose Random 118 mg/dL (60-115); Lipase 16 U/L (8-78); Magnesium 1.4 mg/dL (1.6-2.6); Potassium 3.4 mmol/L (3.3-5.1); Sodium 147 mmol/L (135-145); Total Protein 7.6 g/dL (6.5-8.0)
[2024-08-01] MEDS: Magnesium Sulfate/H2O 2 GM/50 ML PIGGYBACK IV (14:49)
[2024-08-01 14:50] VITALS: BP 111/71; PULSE 72; RESP 16; O2SAT 94
[2024-08-01 17:02] VITALS: BP 124/71; PULSE 86; RESP 14; TEMP 37; O2SAT 97
[2024-08-01 17:21] VITALS: BP 124/71; PULSE 86; RESP 14; TEMP 36; O2SAT 97
== END 2024-08-01 17:25 | disposition home or self-care (01) ==
PROVIDERS: Emergency Provider Emergency Medicine
DX: F10.220 Alcohol dependence with intoxication, uncomplicated (principal); Y90.8 Blood alcohol level of 240 mg/100 ml or more; S09.90XA Unspecified injury of head, initial encounter; Y04.8XXA Assault by other bodily force, initial encounter; F17.210 Nicotine dependence, cigarettes, uncomplicated; Y93.9 Activity, unspecified; Y92.521 Bus station as the place of occurrence of the external cause; Y99.9 Unspecified external cause status; Z79.899 Other long term (current) drug therapy
CPT/HCPCS: 36415; 70450; 72125; 80048; 80076; 80307; 83690; 83735; 85025; 85610; 93005; 96365; 99284; 99285; J3475

== ENCOUNTER → 2024-08-01 13:02 | Outpatient (BNV) | payer OTHER, SELFPAY | PROVIDERS: Emergency Provider Emergency Medicine; Visit Provider Radiology Diagnostic Radiology | DX: S09.90XA Unspecified injury of head, initial encounter (principal); F10.929 Alcohol use, unspecified with intoxication, unspecified | CPT/HCPCS: 70450; 72125 ==

== ENCOUNTER → 2024-08-01 13:03 | Outpatient (BNV) | payer OTHER, SELFPAY | PROVIDERS: Emergency Provider Emergency Medicine; Visit Provider Internal Medicine Cardiovascular Disease | DX: I49.1 Atrial premature depolarization (principal) | CPT/HCPCS: 93010 ==

== ENCOUNTER 2024-08-03 15:28 | Emergency (ER) | payer OTHER, SELFPAY ==
--- NOTE | ~2024-08-03 | CT_ITS ---
CLINICAL HISTORY: L lumbar flank pain CT abdomen and pelvis without contrast Comparison: CT/SR - CT ABDOMEN PELVIS WO IV CON - 03/12/24 00:05 EST Findings: Examination is limited by without contrast. Lung bases are clear. No pleural effusion. Hepatic steatosis. There is pneumobilia. Pancreas and both adrenals show normal size, shape and attenuation on present unenhanced scan. Linear calcification along the capsule of the spleen. Gallstones in the gallbladder. Both kidneys reveal normal in size, shape, position and attenuation. Stone in the lower pole left renal pelvis. Mild bilateral hydroureteronephrosis. The IVC, aorta and portal vein are within normal position and caliber. No evidence of retroperitoneal lymphadenopathy or ascites. There is bowel wall thickening of the colon. Colonic diverticulosis. Appendix appears normal. Circumferential wall thickening of the bladder. Enlargement of the prostate gland. Degenerative changes of the lumbar spine. Large anterior osteophytes of the L4 and L5. IMPRESSION: Circumferential wall thickening of the bladder concerning for cystitis. Nonobstructing stone of the left renal pelvis. Mild bilateral hydroureteronephrosis with no evidence of ureteral stone. Cholelithiasis. There is pneumobilia, new finding from prior CT. Wall thickening of the colon. Acute diverticulitis or colitis can not be excluded. Additional findings as above. This document has been electronically signed by: Polo Barnett MD on 08/03/2024 17:52:43
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
[2024-08-03 15:33] VITALS: BP 118/65; BP 120/80; PULSE 88; PULSE 89; RESP 18; TEMP 36.9; O2SAT 92; O2SAT 93; BMI 25.8
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
--- NOTE | 2024-08-03 16:11 | MHC.EDTECH ---
pt ambulated to and from bathroom with a steady gait and no assistance needed. Urine collected
[2024-08-03 16:32] VITALS: BP 108/78; PULSE 81; RESP 22; TEMP 37.2; O2SAT 97
--- OUTSIDE RECORDS SUMMARY | 2024-08-03 16:59 | XMS_ITS | Continuity of Care Document ---
Demographics Address [address] [place] [address] Home Phone Email Address Preferred Language en Marital Status Unknown Tenriism Affiliation Unknown Race Unknown Ethnic Group Not or Lati no Author Organization [facility] Address [address] [place] [address] Phone Care Team Providers Care Automation Machine Operator Name Role Phone Roderick Blake MD Unavailable [...] Provider Providers Copied on Encounter [facility], [address], [place], [id number], [phone] [facility] No Information 4 Hayden Vaughn. [address], [address], [place], [place], [id number] , [place]. tel: [phone] [facility], [address] [place], [place] [address], [place], [place], [id number], [place] tel:[phone] [facility] Compression of VeinStricture of ArteryEnd stage renal diseaseOther complications due to renal dialysis device, implant, and graftTo Be Coded 4 Hayden Vaughn. [address], [address], [place], [place], [id number] , . [phone] Referring Provider: Michelle Augustin, [address], [place], [address]. tel:[phone] [facility], [address], [place], [place], [id number], [place] tel:[phone] [facility] No Information 4 Hayden Vaughn. [address], [facility] [address], [place], [place], [id number] , [place]. tel:[phone] Family History Family Member Type Diagnosis Age At Onset No Information Payers Payer name Insurance type Covered libertarian ID Authoriza tion(s) No Information Social History [...]
[2024-08-03] MEDS: Magnesium Oxide 400 MG TABLET 800 MG PO (19:21)
[2024-08-03] MEDS: Acetaminophen 325 MG TABLET 975 MG PO (19:21)
[2024-08-03 19:40] LABS: MANUAL DIFF FLAG NO
[2024-08-03 19:41] LABS: Appearance Urine Clear; Color Urine Dark Yellow; Glucose Urine UA Negative (Negative); Leukocyte Esterase Urine Moderate (2+) (Negative); Nitrite Urine Positive (Negative); PH 5.5 (5.0-9.0); Specific Gravity - Urine 1.025 (1.005-1.025); UMIC TRIGGER UACC YES; Urine Blood Negative (Negative); Urine Ketones Trace mg/dL (Negative); Urine Protein 300 (3+) mg/dL (Neg-Trace)
[2024-08-03 19:42] LABS: Basophils Percent Auto 0.5 % (0-2); Eosinophils Percent Auto 0.7 % (0-4); Hematocrit 31.9 % (42.0-52.0); Imm Gran Abs Auto 0.01 X10*3/uL (0.00-0.03); Imm Gran Pct Auto 0.2 % (0.0-0.4); Lymphocytes Absolute Auto 2.6 X10*3/uL (1.2-4.9); Lymphocytes Percent Auto 58.4 % (20-40); Mean Corpuscular HGB Conc 34.5 g/dl (31.0-36.0); Mean Corpuscular Hemoglobin 30.6 pg (27.0-33.0); Mean Corpuscular Volume 88.6 fL (80.0-98.0); Mean Platelet Volume 10.2 fL (9.4-12.4); Monocytes Absolute Auto 0.5 X10*3/uL (0.1-1.2); Monocytes Percent Auto 11.8 % (2-11); Neutrophils Absolute Auto 1.3 x10*3/uL (2.0-8.3); Neutrophils Percent Auto 28.4 % (45-73); White Blood Count 4.4 X10*3/uL (4.8-10.8)
[2024-08-03 19:46] LABS: Bacteria Urine 1+ (None Seen); Hyaline Casts Urine 0-2 /LPF (0-2); RBC Urine 0-2 /HPF (0-2); UACC Culture Trigger YES
[2024-08-03 19:49] LABS: Platelet Count 56 X10*3/uL (160-400)
[2024-08-03 20:06] LABS: Alanine Aminotransferase 89 U/L (0-40); Albumin Level 3.9 g/dL (3.5-5.0); Alkaline Phosphatase 76 U/L (39-117); Anion Gap 16 (12-20); Aspartate Amino Transferase 119 U/L (5-37); Bilirubin Total 1.6 mg/dL (0.0-1.0); Blood Urea Nitrogen 12 mg/dL (9-16); Calcium 8.6 mg/dL (8.4-10.2); Carbon Dioxide 25 mmol/L (22-29); Chloride 106 mmol/L (96-108); Creatinine Clr Calc Pharmacy 92.7; Estimated Glomerular Filt Rate > 60; Glucose Random 104 mg/dL (60-115); Magnesium 1.4 mg/dL (1.6-2.6); Potassium 3.2 mmol/L (3.3-5.1); Sodium 144 mmol/L (135-145); Total Protein 7.2 g/dL (6.5-8.0)
[2024-08-03] MEDS: levoFLOXacin 750 MG TABLET PO (20:14)
== END 2024-08-03 20:15 | disposition home or self-care (01) ==
PROVIDERS: Emergency Provider Emergency Medicine
DX: N39.0 Urinary tract infection, site not specified (principal); E83.42 Hypomagnesemia; E87.6 Hypokalemia; N13.4 Hydroureter; R51.9 Headache, unspecified; R10.2 Pelvic and perineal pain; F10.129 Alcohol abuse with intoxication, unspecified; Y90.9 Presence of alcohol in blood, level not specified; F17.210 Nicotine dependence, cigarettes, uncomplicated; Z79.899 Other long term (current) drug therapy
CPT/HCPCS: 36415; 70450; 74176; 80053; 81001; 83735; 85025; 87086; 99284

== ENCOUNTER → 2024-08-03 16:20 | Outpatient (BNV) | payer OTHER, SELFPAY | PROVIDERS: Emergency Provider Emergency Medicine; Visit Provider Nuclear Medicine | DX: N20.0 Calculus of kidney (principal); K80.00 Calculus of gallbladder with acute cholecystitis without obstruction; F10.120 Alcohol abuse with intoxication, uncomplicated; S09.0XXA Injury of blood vessels of head, not elsewhere classified, initial encounter; W19.XXXA Unspecified fall, initial encounter | CPT/HCPCS: 70450; 74176 ==

== ENCOUNTER 2025-01-15 22:34 | Emergency (ER) | payer OTHER, SELFPAY ==
--- OUTSIDE RECORDS SUMMARY | 2013-09-09 05:25 | XMS_ITS | Continuity of Care Document ---
Author Organization [facility] Address [address] [facility] [address] [place] [address] Phone Care Team Providers Care Raw Material Handler Name Role Phone Roderick Blake MD Unavailable Unavailable Allergies, Adverse Reactions, Alerts Substance Reaction Status Criticality fluorescein Active No Information Medications Medication Instructions Dosage Effective Dates (start - stop) Status Comments Adalat CC 90 mg tablet,extended release take 1 tablet by oral route every day - Active Colace 100 mg capsule take 1 capsule by oral route 2 times every day as needed - Active lisinopril 10 mg tablet take 1 tablet by oral route 2 times every day 10 MG - Active hydralazine 25 mg tablet take 1 tablet by oral route 2 times every day 25 MG - Active metoprolol tartrate 50 mg tablet take 1 tablet by oral route 2 times every day with meals 50 MG - Active Renagel 800 mg tablet take 4 Tablet by o ral route 3 times every day with meals 3200 MG - Active Lasix 80 mg tablet take 1 tablet by ora l route 2 times every day 80 MG - Active Procedures Procedure Date CONTRAST, 300/ML, PER ML ARTERIOVENOUS SHUNT W/ IMAGING ANGIOPLASTY PERIPHERAL ARTERY ANGIOPLASTY PERC BRACHIOCEPHALIC Radiation Exposure Documented To Be Coded Advance Directives Directive Yes / No Effective Date File Name No Information Encounters Encounter Description Practice Location Reason(s) For Visit Diagnoses Date Provider Providers Copied on Encounter [facility], [address] [facility] [address], [id number], [phone] [facility] No Information 4 Hayden Vaughn. [address] [facility], [address], [place], [place], [id number] , [place]. tel: [phone] [facility], [address] [place], [place] [address], [place], [place], [id number], [place] tel:[phone] [facility] Compression of VeinStricture of ArteryEnd stage renal diseaseOther complications due to renal dialysis device, implant, and graftTo Be Coded 4 Hayden Vaughn. [address] [facility], [address], [place], [place], [id number] , . tel:[phone] Referring Provider: Michelle Augustin, [address] [facility], [facility] [place], [address]. tel:[phone] [facility], [address] [facility] [address], [place], [place], [id number], [place] tel:[phone] [facility] No Information 4 Hayden Vaughn. [address] [facility], [facility] [address], [place], [place], [id number] , [place]. tel:[phone] Family History Family Member Type Diagnosis Age At Onset No Information Payers Payer name Insurance type Covered republican ID Authoriza tion(s) No Information Social History Type Description Quantity Date Captured Comments Sex Male Smoking Status No Information Chief Complaint And Reason For Visit No Information Reason For Referral Reason For Referral No Information History Of Present Illness Encounter Date Complaint History Of Prese nt Illness No Information Functional Status Date Functional Assessmen t No Information Instructions Date Instruction Additional Infor mation No Information Assessments Type Assessment Date No Information Patient Care Teams Name Effective Dates (start - stop) Status Members No Information
--- NOTE | ~2025-01-15 | CT_ITS ---
CLINICAL HISTORY: AMS, fall CT head without contrast Comparison: head CT from 08/03/2024 Findings: Small bilateral subdural hygromas persists with density concerning for acuity and/or recurrent subdural hematoma of the left frontal convexity (49 of series 4) Measuring 5 mm thickness. dural thickening noted, including deep to left craniotomy. No midline shift or hydrocephalus. Mild volume loss is generalized. No large arterial territorial infarction by CT accounting for artifacts, including artifact over the posterior convexities. Fluid and mucosal thickening of the paranasal sinuses are multifocal. Previous left craniotomy changes are redemonstrated. Small bilateral mastoid effusions with mastoid air cell remodeling. No acute skull fracture, accounting for motion artifacts. IMPRESSION: 1. Density concerning for acute and recurrent subdural hematoma measuring 5 mm of the left frontal convexity. 2. No significant midline shift or hydrocephalus. This document has been electronically signed by: Anthony Vieira MD on 01/16/2025 02:53:16
--- NOTE | ~2025-01-15 | XR_ITS ---
CLINICAL HISTORY: fever, cough 1 view chest x-ray Comparison: None provided Findings: No consolidation, pneumothorax, or pleural effusion. Mild bibasilar atelectasis/pneumonitis. Edema is also considered given mild interstitial opacities. Emphysematous changes noted. Cardiac silhouette and mediastinum accentuated by AP technique. Degenerative changes include the imaged shoulders. IMPRESSION: Mild pulmonary opacities nonspecific and may reflect pneumonitis and/or pulmonary edema. This document has been electronically signed by: Anthony Vieira MD on 01/16/2025 02:32:18
--- NOTE | ~2025-01-15 | CT_ITS ---
CLINICAL HISTORY: fall, ams CT cervical spine without contrast Comparison: CT of the cervical spine from 08/01/2024 Findings: No acute fracture of the cervical spine. No significant change in vertebral heights or vertebral alignments. Mild straightening of the cervical lordosis redemonstrated. Disc osteophyte complexes, bony productive changes, ligament calcifications, and facet arthropathy are multifocal. Foraminal narrowing includes severe right at C3-C4, moderate to severe right at C4-C5, mild right and moderate left at C5-C6, mild bilateral C6-C7, and mild bilateral C7-T1. IMPRESSION: No acute fracture of the cervical spine. This document has been electronically signed by: Anthony Vieira MD on 01/16/2025 02:48:56
--- NOTE | ~2025-01-15 | CT_ITS ---
CLINICAL HISTORY: pain, fever, fall CT lumbar spine with contrast Comparison: CT of the abdomen and pelvis and bone windows from 08/03/2024. Findings: No acute fracture of the lumbar spine. No significant change in vertebral heights are alignments. Multifocal Schmorl's nodes noted, including thoracic vertebrae. No new or aggressive appearing endplate changes are bony destructive changes to support discitis or osteomyelitis by CT. Disc bulges are redemonstrated including L3-L4 through L5-S1 with mild spinal stenosis including foraminal narrowing by CT. Facet arthropathy is multifocal. Ligament calcifications are redemonstrated. Subcutaneous edema is noted, including dependently. No definite drainable intramuscular abscess or paraspinal fluid collection by CT. IMPRESSION: 1. No acute Fracture of the lumbar spine. 2. No definite CT findings of the discitis and osteomyelitis. Please consider nonemergent MRI, if clinically indicated. This document has been electronically signed by: Anthony Vieira MD on 01/16/2025 02:57:44
[2025-01-15 22:41] VITALS: BP 177/91; PULSE 110; RESP 18; TEMP 38.2; O2SAT 99
[2025-01-15 22:53] VITALS: PULSE 83; O2SAT 95; BMI 27.4
--- NOTE | 2025-01-15 22:57 | ED_ITS ---
HPI - General Adult General Chief complaint: Back Pain/Injury Stated complaint: Laying on ground outside w/ back pain A&Ox4 GCS 15 Time Seen by Provider: 01/15/25 22:35 Source: patient and EMS Mode of arrival: EMS Limitations: no limitations History of Present Illness ED Provider: Dr. Jacklyn Ghosh HPI narrative: patient comes to the emergency room via ambulance. Patient was found lying down on the ground by PD. Patient reports that he lowered himself down because he has back pain , denies any falls today. However, patient reports that he fell aproximally 36-48 hours ago. today, thepatient has told us 2 different stories, 1st story is that he fell coming out of a bus, fell and hit his head and landed hard on his back. The 2nd story is that he fell off a bench at the bus stop, injuring his back and head. Either way, the Patient denies any urinary retention/ incontinence, denies headache, neck pain, chest pain abdominal pain . Patient denies loss of consciousness, denies taking blood thinners. Patient states that today he did not drink alcohol, only yesterday. Denies IV drug use. Patient denies fever or chills. Related Data Previous Rx's ?Medication ?Instructions ?Recorded folic acid 1 mg tablet 1 mg PO DAILY #90 tabs 07/05 lidocaine 4 % topical patch 1 patch transdermal DAILY #7 ea 07/05/24 (Lidocaine Pain Relief) nicotine 21 mg/24 hr daily 21 mg transdermal DAILY #7 ea 07/05/24 transdermal patch omeprazole 20 mg capsule,delayed 20 mg PO DAILY@0630 # 90 caps 07/05/24 release sucralfate 100 mg/mL oral 1 g (10 mL) PO QIDACHS #360 mL 07/05/24 suspension thiamine HCl (vitamin B1) 100 mg 50 mg (1/2 x 100 mg) PO DAILY #90 07/05/24 tablet tabs amlodipine 2.5 mg tablet 2.5 mg PO DAILY #90 tabs 08/26 potassium chloride 10 mEq 10 meq PO DAILY #6 caps 08/26 capsule,extended release trazodone 50 mg tablet 25 mg (1/2 x 50 mg) PO DAILY #10 07/07/24 tabs levofloxacin 750 mg tablet 750 mg PO DAILY #7 tabs 04/28 magnesium oxide 500 mg capsule 500 mg PO BID 7 days #1 4 caps 08/03/24 potassium chloride 20 mEq 20 meq PO BID 7 days #14 tab s 08/03/24 tablet,extended release Allergies Allergy/AdvReac Type Severity Reaction Status Date / Time No Known Allergies Allergy Verified 01/15/25 22:56 Review of Systems 2 Review of Systems: Constitutional : No Weight loss, No Fever, No Chills, No Night Sweats, No Fatigue, No Malaise ENT/Mouth : No Hearing loss, No Ear Pain, No Nasal Congestion, No Sinus Pain, No Hoarseness, No sore throat, No Rhinorrhea, No Swallowing Difficulty Eyes: No Eye Pain, No Swelling, No Redness, No Foreign Body, No Discharge, No Vision Changes Cardiovascular : No Chest Pain, No SOB, No Dyspnea on Exertion, No Orthopnea, No Edema, No Palpitations Respiratory : No Cough, No Sputum, No Wheezing, No Smoke Exposure, No Dyspnea Gastrointestinal : No Nausea, No Vomiting, No Diarrhea, No Constipation, No abdominal Pain, No Hematochezia, No Melena Genitourinary : no irregular bleeding, No Dysuria, No Urinary Frequency, No Hematuria, No Urinary Incontinence, No Urgency, No Flank Pain, No Urinary Flow Changes, No Hesitancy Musculoskeletal : Complaining of lower back pain after a fall, No Myalgias, No Joint Swelling Skin : No Skin Lesions, No rash Neuro : No Weakness, No Numbness, No Paresthesias, No Loss of Consciousness, No Dizziness, No Headache Psych : No Anxiety/Panic, No Depression, No SI/HI/AH/VH, No Social Issues, Heme/Lymph: No Bruising, No Bleeding,No Lymphadenopathy Endocrine : No Polyuria, No Polydipsia, No Temperature Intolerance [facility] Past Medical History Medical History Opioid use disorder Alcohol withdrawal seizure Hygroma Chronic subdural hematoma Alcohol use disorder, severe, dependence Social History Social History Household Members: Significant Other Household Members Other:: self Housing: Apartment Alcohol intake: current Alcohol intake frequency: 3 or more drinks per day Alcohol type: hard liquor Comment: Pt refuses all HFR percautions. MD aware. Patient Tobacco Use Status: Current everyday Tobacco user Tobacco use type: Cigarette Cigarette Packs Per Day: 1 Cigarettes Per Day: 5 Smoked in Last 30 Days: Yes Use of substances other than those prescribed or required for medical reasons: No Advance Directives: No Advance Directives Information Provided: Yes Do you have a plan to hurt others: No Plan service: No Physical Exam ED Exam Exam: Appearance: Alert. Oriented X3. No acute distress. disheveled Eyes: Pupils equal, round and reactive to light. ENT: Pharynx normal. Neck: Normal inspection. Neck supple. No lymph nodes noted. No crepitus , no palpable step-offs, normal flexion and extension without pain, normal range of motion CVS: Normal heart rate and rhythm. Pulses normal. Normal S1 and S2 Respiratory: No respiratory distress. Breath sounds normal. No Wheezing. No rales Abdomen: Soft and nontender. No rigidity. No distention. no ecchymosis Back: Pain to palpation over lumbar and paraspinal muscles. No ecchymosis, no palpable step-offs. Skin: Skin warm and dry. Normal skin color. Normal skin turgor. Extremities: No lower extremity edema. No Lacerations. No Rash Neuro: Oriented X 3. No motor deficit. No sensory deficit. Moving all extremities. No slurred speech. CN 2 through 12 grossly intact Psych: calm, cooperative, normal affect Vital Signs: Vital Signs - 24 hr 01/15/25 22:41 01/15/25 23:50 01/16/25 01:31 Temperature 100.7 F H 102.6 F H 100.1 F Pulse Rate 110 H 120 H 112 H Respiratory Rate 18 26 H 24 H Blood Pressure 177/91 H 159/97 H 167/105 H Pulse Oximetry 99 96 98 Oxygen Delivery Method Room Air Room Air Room Air 01/16/25 02:39 01/16/25 03:33 01/16/25 04:13 Temperature 100.0 F 100.2 F Pulse Rate 106 H 107 H 98 Respiratory Rate 14 20 15 Blood Pressure 156/93 H 152/70 H 150/90 H Pulse Oximetry 98 98 Oxygen Delivery Method Room Air Room Air BMI result Body Mass Index 27.4 Course Course Course Narrative: patient reports falling 36-48 hours ago, patient states that he has lumbar pain from the fall. All of patient's labs and imaging pending during triage, it was noted that patient's blood pressure is 177/91, heart rate 110. Patient states that he drinks a pt of vodka every day, last drink was proximally 24 hours ago. Patient reports generalized malaise given patient's history of alcohol abuse/ dependence, we will start him on the phenobarb protocol Medications Administered Discontinued Medications Generic Name Dose Route Start Last Admin Trade Name Emily PRN Reason Stop Dose Admin Acetaminophen 975 mg 01/15/25 23:48 01/16/25 00:23 Acetaminophen 325 Mg Tablet PO 01/15/25 23:49 975 mg ONCE ONE Administration Diazepam 2.5 mg 01/16/25 02:27 01/16/25 02:39 Diazepam 10 Mg/2 Ml Cartridge IVPUSH 01/16/25 02:28 2.5 mg STAT STA Administration Magnesium Sulfate 2 gm in 50 mls @ 150 mls/hr 01/15/25 23:44 01/16/25 00:52 Magnesium Sulfate/H2o IV 01/16/25 00:03 Infused ONCE ONE Infusion Sodium Chloride 1,000 mls @ 999 mls/hr 01/16/25 02:37 01/16/25 02:41 Ns IVCONT 01/16/25 03:37 999 mls/hr .Q1H1M ONE Administration Thiamine HCl 100 mg/ Sodium 101 mls @ 202 mls/hr 01/16/25 02:40 01/16/25 03:24 Chloride IV 01/16/25 03:09 Infused ONCE ONE Infusion Iohexol 85 ml 01/16/25 00:53 01/16/25 00:54 Iohexol 350 Mg/Ml 100 Ml Infus..Btl IV 01/16/25 00:54 85 ml ONCE ONE Administration Phenobarbital Sodium 317 mg 01/16/25 03:00 01/16/25 03:20 Phenobarbital Sodium 130 Mg/Ml Im Once IM 01/16/25 03:01 317 mg ONCE ONE Administration Medical Decision Making Medical Decision Making MDM Narrative: my interpretation of labs: No significant abnormality patient's hematology. Chemistry shows a slightly decreased sodium likely secondary to alcohol intake , ammonia is within normal limits patient's anion gap elevation of 30 and lactic acid are 4.1, likely secondary to alcohol intake as well. Magnesium of 1.1 was given to the patient, patient's LFTs are elevated, chronic, due to alcohol intake, not sepsis. urinalysis is negative for UTI Toxicology report negative for alcohol and drugs of abuse. serology negative for COVID/flu/RSV Patient is a bit agitated, tremulous, hypertensive and tachycardic. Patient states that the last time that he had drank alcohol was a proximally 24 hours or more. Patient is likely starting to go through alcohol withdrawal patient was given a dose of diazepam and will be started on the phenobarb protocol chest x-ray: Pneumonitis? Patient has not been having any coughing episodes. patient is temperature is likely secondary to alcohol withdrawal rather than infection. at this time, there are no obvious sources of infection. Patient denies URI, UTI symptoms, no abdominal discomfort. as mentioned above, serologies negative for COVID/flu, RSV CT scan of the head : acute and recurrent subdural hematoma measuring 5 mm from the left frontal convexity CT scan of neck no acute findings CT scan of lumbar spine: No acute findings Patient is awake, alert and oriented x3. GCS 15, not on anticoagulation but patient's platelets are 70, chronic. On CT scan there is a 5 mm subdural acute/ recurrent hematoma. There is no skull fracture, no epidural or intraparenchymal hemorrhage, no subarachnoid hemorrhage, no intraventricular hemorrhage - I discussed the patient with Dr. Cleveland from the ICU, they do not feel comfortble keeping the hospital at this hospital, recommends to transfer the patient. - patient is agreeable to be transferred I discussed the patient with Dr. Renae from the Trauma team at [facility], patient to be transferred as category 2 trauma, ED to ED Differential Diagnosis Differential Diagnoses: The differential diagnosis associated with the presentation includes ( subdural hematoma, epidural hematoma, intracranial bleed, Alcohol withdrawal, viral syndrome, less likely epidural abscess, multiple electrolyte abnormalities) Admission/Observation Consideration of admission/observation: Escalation of care including admission/observation considered Consult Healthcare Provider Management of the patient was discussed with: Hospitalist Lab Data MDM Lab Attestation statement: I reviewed the patient's lab results. 01/15/25 23:17 01/16/25 03:29 Labs: Lab Results 01/15/25 01/15/25 01/15/25 Range/Units 23:17 23:17 23:35 WBC 9.0 (4.8-10.8) X10*3/uL RBC 4.13 L (4.60-5.80) X10*6/uL Hgb 12.8 L (14.0-18.0) g/dl Hct 36.3 L (42.0-52.0) % MCV 87.9 (80.0-98.0) fL MCH 31.0 (27.0-33.0) pg MCHC 35.3 (31.0-36.0) g/dl RDW 12.1 (11.0-16.0) % Plt Count 70 L (160-400) X10*3/uL MPV 13.4 H (9.4-12.4) fL Immature Gran % (Auto) 0.9 H (0.0-0.4) % Neut % (Auto) 85.1 H (45-73) % Lymph % (Auto) 7.5 L (20-40) % [facility] % (Auto) 6.0 (2-11) % Eos % (Auto) 0.3 (0-4) % Baso % (Auto) 0.2 (0-2) % Lymph # (Auto) 0.7 L (1.2-4.9) X10*3/uL [facility] # (Auto) 0.5 (0.1-1.2) X10*3/uL Eos # (Auto) 0.0 (0.0-0.4) X10*3/uL Baso # (Auto) 0.0 (0.0-0.2) X10*3/uL Abs Immat Gran (auto) 0.08 H (0.00-0.03) X10*3/uL Absolute Neuts (auto) 7.7 (2.0-8.3) x10*3/uL Absolute Nucleated RBC 0.000 (0.0-0.012) X10*3/uL Nucleated RBC % (auto) 0.0 (0.0-0.2) /100WBC ESR 33 H (0-15) MM/HR PT (11.2-13.5) SEC INR (0.9-1.1) Sodium 131 L (135-145) mmol/L Potassium 3.7 (3.3-5.1) mmol/L Chloride 90 L (96-108) mmol/L Carbon Dioxide 15 L (22-29) mmol/L Anion Gap 30 H (12-20) BUN 11 (9-16) mg/dL Creatinine 0.93 (0.5-1.4) mg/dL Estim Creat Clear Calc 85.3 Estimated GFR > 60 Random Glucose 76 (60-115) mg/dL Lactic Acid (0.5-2.0) mmol/L Lactic Acid F/U @ 2Hr (0.5-2.0) mmol/L Calcium 9.2 D (8.4-10.2) mg/dL Magnesium 1.1 L* (1.6-2.6) mg/dL Total Bilirubin 2.0 H (0.0-1.0) mg/dL Direct Bilirubin 1.2 H (0.0-0.5) mg/dL AST 356 H (5-37) U/L ALT 178 H (0-40) U/L Alkaline Phosphatase 58 (39-117) U/L Ammonia (13-55) umol/L C-Reactive Protein 0.69 H Cancelled (< or = 0.50) mg/dL Total Protein 8.2 H (6.5-8.0) g/dL Albumin 4.4 (3.5-5.0) g/dL Urine Color Urine Appearance Urine pH (5.0-9.0) Ur Specific [place] (1.005-1.025) Urine Protein (Neg-Trace) mg/dL Urine Glucose (UA) (Negative) mg/dL Urine Ketones (Negative) mg/dL Urine Blood (Negative) Urine Nitrite (Negative) Ur Leukocyte Esterase (Negative) Urine RBC (0-2) /HPF Urine WBC (0-5) /HPF Ur Squamous Epith Cells (0-2) /HPF Urine Bacteria (None Seen) Hyaline Casts (0-2) /LPF Urine Opiates Screen (Not Detect) Ur Buprenorphine Scrn (Not Detect) ng/mL Ur Oxycodone Screen (Not Detect) ng/mL Urine Methadone Screen (Not Detect) ng/mL Urine Fentanyl Screen (Not Detect) Ur Barbiturates Screen (Not Detect) Ur Phencyclidine Scrn (Not Detect) Ur Amphetamines Screen (Not Detect) U Benzodiazepines Scrn (Not Detect) Urine Cocaine Screen (Not Detect) U Marijuana (THC) Screen (Not Detect) Ethyl Alcohol < 10 mg/dL Influenza Type A (PCR) NEGATIVE (Negative) Influenza Type B (PCR) NEGATIVE (Negative) RSV RNA Qual (PCR) NEGATIVE (Negative) SARS-CoV-2 RNA (RT-PCR) NEGATIVE (Negative) 01/16/25 01/16/25 01/16/25 Range/Units 00:19 00:44 01:18 WBC (4.8-10.8) X10*3/uL RBC (4.60-5.80) X10*6/uL Hgb (14.0-18.0) g/dl Hct (42.0-52.0) % MCV (80.0-98.0) fL MCH (27.0-33.0) pg MCHC (31.0-36.0) g/dl RDW (11.0-16.0) % Plt Count (160-400) X10*3/uL MPV (9.4-12.4) fL Immature Gran % (Auto) (0.0-0.4) % Neut % (Auto) (45-73) % Lymph % (Auto) (20-40) % [facility] % (Auto) (2-11) % Eos % (Auto) (0-4) % Baso % (Auto) (0-2) % Lymph # (Auto) (1.2-4.9) X10*3/uL [facility] # (Auto) (0.1-1.2) X10*3/uL Eos # (Auto) (0.0-0.4) X10*3/uL Baso # (Auto) (0.0-0.2) X10*3/uL Abs Immat Gran (auto) (0.00-0.03) X10*3/uL Absolute Neuts (auto) (2.0-8.3) x10*3/uL Absolute Nucleated RBC (0.0-0.012) X10*3/uL Nucleated RBC % (auto) (0.0-0.2) /100WBC ESR (0-15) MM/HR PT (11.2-13.5) SEC INR (0.9-1.1) Sodium (135-145) mmol/L Potassium (3.3-5.1) mmol/L Chloride (96-108) mmol/L Carbon Dioxide (22-29) mmol/L Anion Gap (12-20) BUN (9-16) mg/dL Creatinine (0.5-1.4) mg/dL Estim Creat Clear Calc Estimated GFR Random Glucose (60-115) mg/dL Lactic Acid 4.1 H* (0.5-2.0) mmol/L Lactic Acid F/U @ 2Hr (0.5-2.0) mmol/L Calcium (8.4-10.2) mg/dL Magnesium (1.6-2.6) mg/dL Total Bilirubin (0.0-1.0) mg/dL Direct Bilirubin (0.0-0.5) mg/dL AST (5-37) U/L ALT (0-40) U/L Alkaline Phosphatase (39-117) U/L Ammonia (13-55) umol/L C-Reactive Protein (< or = 0.50) mg/dL Total Protein (6.5-8.0) g/dL Albumin (3.5-5.0) g/dL Urine Color Yellow Urine Appearance Clear Urine pH 6.0 (5.0-9.0) Ur Specific [place] 1.015 (1.005-1.025) Urine Protein 300 (3+) H (Neg-Trace) mg/dL Urine Glucose (UA) Negative (Negative) mg/dL Urine Ketones 80 (Negative) mg/dL Urine Blood Large (3+) H (Negative) Urine Nitrite Negative (Negative) Ur Leukocyte Esterase Negative (Negative) Urine RBC 0-2 (0-2) /HPF Urine WBC 0-5 (0-5) /HPF Ur Squamous Epith Cells 0-2 (0-2) /HPF Urine Bacteria None Seen (None Seen) Hyaline Casts 0-2 (0-2) /LPF Urine Opiates Screen Not Detected (Not Detect) Ur Buprenorphine Scrn Not Detected (Not Detect) ng/mL Ur Oxycodone Screen Not Detected (Not Detect) ng/mL Urine Methadone Screen Not Detected (Not Detect) ng/mL Urine Fentanyl Screen Not Detected (Not Detect) Ur Barbiturates Screen Not Detected (Not Detect) Ur Phencyclidine Scrn Not Detected (Not Detect) Ur Amphetamines Screen Not Detected (Not Detect) U Benzodiazepines Scrn Not Detected (Not Detect) Urine Cocaine Screen Not Detected (Not Detect) U Marijuana (THC) Screen Not Detected (Not Detect) Ethyl Alcohol mg/dL Influenza Type A (PCR) (Negative) Influenza Type B (PCR) (Negative) RSV RNA Qual (PCR) (Negative) SARS-CoV-2 RNA (RT-PCR) (Negative) 01/16/25 01/16/25 Range/Units 01:22 03:29 WBC (4.8-10.8) X10*3/uL RBC (4.60-5.80) X10*6/uL Hgb (14.0-18.0) g/dl Hct (42.0-52.0) % MCV (80.0-98.0) fL MCH (27.0-33.0) pg MCHC (31.0-36.0) g/dl RDW (11.0-16.0) % Plt Count (160-400) X10*3/uL MPV (9.4-12.4) fL Immature Gran % (Auto) (0.0-0.4) % Neut % (Auto) (45-73) % Lymph % (Auto) (20-40) % [facility] % (Auto) (2-11) % Eos % (Auto) (0-4) % Baso % (Auto) (0-2) % Lymph # (Auto) (1.2-4.9) X10*3/uL [facility] # (Auto) (0.1-1.2) X10*3/uL Eos # (Auto) (0.0-0.4) X10*3/uL Baso # (Auto) (0.0-0.2) X10*3/uL Abs Immat Gran (auto) (0.00-0.03) X10*3/uL Absolute Neuts (auto) (2.0-8.3) x10*3/uL Absolute Nucleated RBC (0.0-0.012) X10*3/uL Nucleated RBC % (auto) (0.0-0.2) /100WBC ESR (0-15) MM/HR PT 12.5 (11.2-13.5) SEC INR 1.0 (0.9-1.1) Sodium 127 L (135-145) mmol/L Potassium 3.2 L (3.3-5.1) mmol/L Chloride 88 L (96-108) mmol/L Carbon Dioxide 18 L (22-29) mmol/L Anion Gap 24 H (12-20) BUN 10 (9-16) mg/dL Creatinine 0.78 (0.5-1.4) mg/dL Estim Creat Clear Calc 101.7 Estimated GFR > 60 Random Glucose 81 (60-115) mg/dL Lactic Acid (0.5-2.0) mmol/L Lactic Acid F/U @ 2Hr 1.4 (0.5-2.0) mmol/L Calcium 8.7 (8.4-10.2) mg/dL Magnesium 1.4 L* (1.6-2.6) mg/dL Total Bilirubin 2.1 H (0.0-1.0) mg/dL Direct Bilirubin (0.0-0.5) mg/dL AST 354 H (5-37) U/L ALT 160 H (0-40) U/L Alkaline Phosphatase 53 (39-117) U/L Ammonia 36 (13-55) umol/L C-Reactive Protein (< or = 0.50) mg/dL Total Protein 7.7 (6.5-8.0) g/dL Albumin 4.1 (3.5-5.0) g/dL Urine Color Urine Appearance Urine pH (5.0-9.0) Ur Specific [place] (1.005-1.025) Urine Protein (Neg-Trace) mg/dL Urine Glucose (UA) (Negative) mg/dL Urine Ketones (Negative) mg/dL Urine Blood (Negative) Urine Nitrite (Negative) Ur Leukocyte Esterase (Negative) Urine RBC (0-2) /HPF Urine WBC (0-5) /HPF Ur Squamous Epith Cells (0-2) /HPF Urine Bacteria (None Seen) Hyaline Casts (0-2) /LPF Urine Opiates Screen (Not Detect) Ur Buprenorphine Scrn (Not Detect) ng/mL Ur Oxycodone Screen (Not Detect) ng/mL Urine Methadone Screen (Not Detect) ng/mL Urine Fentanyl Screen (Not Detect) Ur Barbiturates Screen (Not Detect) Ur Phencyclidine Scrn (Not Detect) Ur Amphetamines Screen (Not Detect) U Benzodiazepines Scrn (Not Detect) Urine Cocaine Screen (Not Detect) U Marijuana (THC) Screen (Not Detect) Ethyl Alcohol mg/dL Influenza Type A (PCR) (Negative) Influenza Type B (PCR) (Negative) RSV RNA Qual (PCR) (Negative) SARS-CoV-2 RNA (RT-PCR) (Negative) Independent Interpretation I performed an independent interpretation of an: EKG, Plain X-Ray and CT Scan Radiology Impression Discussion of test interpretation with radiology: I have reviewed the radiologist's reading. Radiologist Impression: No consolidation, pneumothorax, or pleural effusion. Mild bibasilar atelectasis/pneumonitis. Edema is also considered given mild interstitial opacities. Emphysematous changes noted. Cardiac silhouette and mediastinum accentuated by AP technique. Degenerative changes include the imaged shoulders. IMPRESSION: Mild pulmonary opacities nonspecific and may reflect pneumonitis and/or pulmonary edema No acute fracture of the cervical spine. Chronic Conditions Patient?s care impacted by: Other ( alcohol abuse and dependence, thrombocytopenia) Social Determinants Patient?s care significantly limited by Social Determinants of Health including: Inadequate housing Critical Care Time Critical Care Time Critical Care Time: Yes Total Critical Care Time: 60 Attestation: I have personally provided critical care time. Time includes review of lab data, radiology results, discussion with consultants, and monitoring for potential decompensation. Intervention performed as documented. Discharge Plan Discharge Clinical Impression: Acute subdural hematoma, Alcohol withdrawal, Acute hyponatremia, Hypomagnesemia Patient Disposition: [facility] Transfer Details: [facility] ED to ED, Dr. Renae from the Trauma team Prescriptions: No Action lidocaine [Lidocaine Pain Relief] 4 % Adhesive Patch,Medicated 1 patch transdermal DAILY Qty: 7 0RF Protocol: Apply to: Apply to: affected area sucralfate 100 mg/mL Suspension 1 g PO QIDACHS Qty: 360 0RF nicotine 21 mg/24 hr Patch 24 Hour 21 mg transdermal DAILY Qty: 7 0RF omeprazole 20 mg Capsule,Delayed Release(Dr/Ec) 20 mg PO DAILY@0630 Qty: 90 0RF thiamine HCl (vitamin B1) 100 mg tablet 50 mg PO DAILY Qty: 90 0RF folic acid 1 mg tablet 1 mg PO DAILY Qty: 90 0RF trazodone 50 mg tablet 25 mg PO DAILY Qty: 10 0RF amlodipine 2.5 mg Tablet 2.5 mg PO DAILY Qty: 90 0RF Protocol: Hold for SBP< HOLD for SBP < : 90 potassium chloride 10 mEq capsule, extended release 10 meq PO DAILY Qty: 6 0RF levofloxacin 750 mg tablet 750 mg PO DAILY Qty: 7 0RF potassium chloride 20 mEq tablet extended release 20 meq PO BID 7 Days Qty: 14 0RF magnesium oxide 500 mg capsule 500 mg PO BID 7 Days Qty: 14 0RF Print Language: Faroese
[2025-01-15 23:26] LABS: MANUAL DIFF FLAG NO
[2025-01-15 23:37] LABS: Hematocrit 36.3 % (42.0-52.0); Hemoglobin 12.8 g/dl (14.0-18.0); Imm Gran Abs Auto 0.08 X10*3/uL (0.00-0.03); Imm Gran Pct Auto 0.9 % (0.0-0.4); Lymphocytes Absolute Auto 0.7 X10*3/uL (1.2-4.9); Mean Corpuscular HGB Conc 35.3 g/dl (31.0-36.0); Mean Corpuscular Hemoglobin 31.0 pg (27.0-33.0); Mean Corpuscular Volume 87.9 fL (80.0-98.0); NRBC Abs Auto 0.000 X10*3/uL (0.0-0.012); NRBC Pct Auto 0.0 /100WBC (0.0-0.2); Red Blood Count 4.13 X10*6/uL (4.60-5.80); White Blood Count 9.0 X10*3/uL (4.8-10.8)
[2025-01-15 23:39] LABS: Platelet Count 70 X10*3/uL (160-400)
[2025-01-15 23:43] LABS: Alanine Aminotransferase 178 U/L (0-40); Albumin Level 4.4 g/dL (3.5-5.0); Alkaline Phosphatase 58 U/L (39-117); Anion Gap 30 (12-20); Aspartate Amino Transferase 356 U/L (5-37); Blood Urea Nitrogen 11 mg/dL (9-16); Calcium 9.2 mg/dL (8.4-10.2); Carbon Dioxide 15 mmol/L (22-29); Chloride 90 mmol/L (96-108); Creatinine Clr Calc Pharmacy 85.3; Estimated Glomerular Filt Rate > 60; Magnesium 1.1 mg/dL (1.6-2.6); Potassium 3.7 mmol/L (3.3-5.1); Sodium 131 mmol/L (135-145); Total Protein 8.2 g/dL (6.5-8.0)
[2025-01-15 23:50] VITALS: BP 159/97; PULSE 120; RESP 26; TEMP 39.2; O2SAT 96
[2025-01-16 00:10] LABS: Erythrocyte Sedimentation Rate 33 MM/HR (0-15)
[2025-01-16] MEDS: Magnesium Sulfate/H2O 2 GM/50 ML PIGGYBACK IV (00:23)
[2025-01-16 00:29] LABS: Resp Syncy Virus RNA Qual PCR NEGATIVE (Negative); SARS COV2 PCR INHOUSE NEGATIVE (Negative)
[2025-01-16] MEDS: iohexoL 350 MG/ML 100 ML INFUS..BTL 85 ML IV (00:54)
[2025-01-16 01:05] LABS: Cannabinoid Screen Urine Not Detected (Not Detect)
[2025-01-16 01:31] VITALS: BP 167/105; PULSE 112; RESP 24; TEMP 37.8; O2SAT 98
[2025-01-16 01:32] LABS: Ammonia 36 umol/L (13-55)
[2025-01-16 01:35] LABS: Appearance Urine Clear; Glucose Urine UA Negative (Negative); PH 6.0 (5.0-9.0); Specific Gravity - Urine 1.015 (1.005-1.025); UMIC TRIGGER UACC YES
--- NOTE | 2025-01-16 02:13 | PC.NURSE ---
20g IV L hand. pt confused, repetitively asking for alcohol, fidgeting with blankets, IV, cords. hx of etoh w/d seizures. seizure pads in place.
--- NOTE | 2025-01-16 02:18 | PC.NURSE ---
pt denies drug use, reporting 1/2 pint of alcohol 2x wk.
[2025-01-16 02:23] LABS: Reflex Lactate? Lactic Acid Added
--- NOTE | 2025-01-16 02:34 | PC.NURSE ---
provider MD Ghosh aware of critical lactic, elevated HR and BP. MD does not suspect sepsis at this time. contributing abnormalities to ETOH w/d
[2025-01-16 02:39] VITALS: BP 156/93; PULSE 106; RESP 14; TEMP 37.8; O2SAT 98
[2025-01-16] MEDS: diazePAM 10 MG/2 ML CARTRIDGE 2.5 MG IVPUSH (02:39)
[2025-01-16] MEDS: Thiamine HCL 100 MG in 0.9 % Sodium Chloride 100 ML 202 MG IV (02:45)
[2025-01-16] MEDS: PHENobarbitaL sodium 130 MG/ML IM ONCE 317 MG IM (03:20)
[2025-01-16 03:33] VITALS: BP 152/70; PULSE 107; RESP 20; TEMP 37.9; O2SAT 98
[2025-01-16 03:41] LABS: INTERNATIONAL NORM RATIO 1.0 (0.9-1.1); Prothrombin Time 12.5 SEC (11.2-13.5)
[2025-01-16 03:47] LABS: ~Lactic Acid-LAB USE ONLY 1.4 mmol/L (0.5-2.0)
[2025-01-16 03:52] LABS: Alanine Aminotransferase 160 U/L (0-40); Albumin Level 4.1 g/dL (3.5-5.0); Alkaline Phosphatase 53 U/L (39-117); Anion Gap 24 (12-20); Aspartate Amino Transferase 354 U/L (5-37); Blood Urea Nitrogen 10 mg/dL (9-16); Calcium 8.7 mg/dL (8.4-10.2); Carbon Dioxide 18 mmol/L (22-29); Chloride 88 mmol/L (96-108); Creatinine Clr Calc Pharmacy 101.7; Estimated Glomerular Filt Rate > 60; Magnesium 1.4 mg/dL (1.6-2.6); Potassium 3.2 mmol/L (3.3-5.1); Sodium 127 mmol/L (135-145); Total Protein 7.7 g/dL (6.5-8.0)
[2025-01-16 04:13] VITALS: BP 150/90; PULSE 98; RESP 15
--- NOTE | 2025-01-16 04:53 | PC.NURSE ---
report to [facility] ED given. awaiting transport
[2025-01-16] MEDS: Potassium Chloride Packet 20 MEQ PACKET 40 MEQ PO (04:56)
[2025-01-16 05:21] VITALS: BP 139/87; PULSE 92; RESP 18; O2SAT 97
[2025-01-16 05:23] VITALS: BP 139/87; PULSE 92; RESP 18; TEMP 37.9; O2SAT 97
== END 2025-01-16 05:23 | disposition short-term general hospital (02) ==
PROVIDERS: Emergency Provider Emergency Medicine; PCP Internal Medicine
DX: S06.5XAA Traumatic subdural hemorrhage with loss of consciousness status unknown, initial encounter (principal); F10.239 Alcohol dependence with withdrawal, unspecified; Y90.9 Presence of alcohol in blood, level not specified; E87.1 Hypo-osmolality and hyponatremia; E83.42 Hypomagnesemia; W19.XXXA Unspecified fall, initial encounter; Y93.9 Activity, unspecified; Y92.9 Unspecified place or not applicable; Y99.9 Unspecified external cause status
CPT/HCPCS: 36415; 70450; 71045; 72125; 72132; 80048; 80053; 80076; 80307; 81001; 82140; 83605; 83735; 85025; 85610; 85652; 86140; 87040; 87637; 96361; 96365; 96366; 96372; 99285; J2560; J3360; J3411; J3475; Q9967

== ENCOUNTER → 2025-01-16 | Outpatient (BNV) | payer OTHER, SELFPAY | PROVIDERS: Emergency Provider Emergency Medicine; PCP Internal Medicine; Visit Provider Radiology Neuroradiology | DX: M54.50 Low back pain, unspecified (principal); R41.82 Altered mental status, unspecified; Z04.3 Encounter for examination and observation following other accident; R05.9 Cough, unspecified; R50.9 Fever, unspecified | CPT/HCPCS: 70450; 71045; 72125; 72132 ==